=== PATIENT | female | born 1945 | race Caucasian/White ===

== ENCOUNTER → 2018-03-29 | Outpatient (CLI) | payer MEDICARE ==
[2018-03-29 12:52] LABS: Blood Urea Nitrogen 7 mg/dL (7-17)
--- NOTE | 2018-03-29 14:42 | CT ---
EXAMINATION TYPE: CT abdomen pelvis w con DATE OF EXAM: 03/29/2018 HISTORY: Abdominal pain, diverticulitis per order. CT DLP: 903mGycm Automated Exposure Control for Dose Reduction was Utilized. CONTRAST: CT scan of the abdomen and pelvis is performed with IV Contrast, patient injected with 100 ml mL of I sovue 300. COMPARISON: CT abdomen and pelvis July 30, 2017 FINDINGS: LUNG BASES: There is patchy left basilar linear scarring and/or atelectasis. LIVER/GB: Cholecystectomy clips are redemonstrated. PANCREAS: No significant abnormality is seen. SPLEEN: No significant abnormality is seen. ADRENALS: No significant abnormality is seen. KIDNEYS: No significant abnormality is seen. BOWEL: Oral contrast extends to mid transverse colon. Violation of distal bowel is slightly suboptima l secondary to lack of enteric contrast. There is no suspicious small or large bowel dilatation. Ther e are scattered diverticula throughout the colon with numerous diverticula seen in the left and sigmo id colon in the mid to distal sigmoid colon there is moderate wall thickening with mild surrounding f at stranding. There is tiny thin-walled rim-enhancing fluid collection measuring 10 x 7 mm coronal im age 66 identified. Seen on axial image 57 there is likely chronic sinus tract or possibly colon to co peter fistula between portions of sigmoid rectal colon. Findings are consistent with mild to moderate a cute diverticulitis and adjacent tiny peridiverticular abscess. UTERUS/ADNEXA: Anteverted uterus is redemonstrated. There are few scattered pelvic phleboliths. LYMPH NODES: No greater than 1cm abdominal or pelvic lymph nodes are appreciated. OSSEOUS STRUCTURES: There is redemonstration of marked rotary levoconvex scoliosis centered in the mi d lumbar spine. There is moderate spurring and disc space narrowing in the right aspect of the upper lumbar spine at peak of curvature. There is narrowing and subchondral cystic change at pubic symphysi s. There is moderate joint space loss in both hips. OTHER: There is moderate calcified plaque of aorta extending into branch vessels. IMPRESSION: CT findings are consistent with mild to moderate acute diverticulitis on background of se rl diverticulosis with tiny adjacent abscess redemonstrated. Suspect underlying sinus tract or colo colic fistula in the distal bowel. A Yellow level critical message alert has been initiated for Guillaume Estes MD via the [facility] Critical Results System on 03/29/2018 2:39 PM. This message alert has been sent to Guillaume Estes MD via the preferences provided by the clinician for the receipt of Radiology Critical Findings. Message ID [id number].
== END | disposition home or self-care (01) ==
LOC: RADCTMAIN 12:16
PROVIDERS: ATTEND Internal Medicine
DX: K57.90 Diverticulosis of intestine, part unspecified, without perforation or abscess without bleeding (principal); K63.0 Abscess of intestine
CPT/HCPCS: 82565; 84520; 74177; 36415; Q9967

== ENCOUNTER → 2018-04-16 | Outpatient (CLI) | payer MEDICARE ==
[2018-04-16 12:01] LABS: Blood Urea Nitrogen 10 mg/dL (7-17)
--- NOTE | 2018-04-16 13:37 | CT ---
EXAMINATION TYPE: CT abdomen pelvis w con DATE OF EXAM: 04/16/2018 COMPARISON: 03/29/2018 HISTORY: Follow-up abscess and diverticulitis. CT DLP: 1054 mGycm Automated exposure control for dose reduction was used. CONTRAST: CT scan of the abdomen pelvis is performed with IV Contrast, patient injected with 100 mL of Isovue M 300. FINDINGS- LUNG BASES- No significant abnormality is appreciated. LIVER/GB- Cholecystectomy clips are redemonstrated. PANCREAS- No gross abnormality is seen. SPLEEN- No gross abnormality is seen. ADRENALS- No gross abnormality is seen. KIDNEYS/BLADDER- no hydronephrosis nephrolithiasis or renal mass. BOWEL-severe diverticulosis noted. There are persistent a small 1.5 x 1.0 cm peridiverticular serial tiny abscess. Findings essentially unchanged from the prior exam. Small hiatal hernia noted.. LYMPH NODES- No greater than 1cm abdominal or pelvic lymph nodes areappreciated. OSSEOUS STRUCTURES- There is redemonstration of marked rotary levoconvex scoliosis centered in the m id lumbar spine. There is moderate spurring and disc space narrowing in the right aspect of the upper lumbar spine at peak of curvature. There is narrowing and subchondral cystic change at pubic symphys is. There is moderate joint space loss in both hips. Grade 1 anterolisthesis of L5 on S1 suspected bi lateral spondylolysis. OTHER- is moderate calcified plaque of aorta extending into branch vessels. IMPRESSION- 1. Stable 1.5 x 1.0. Diaphyseal fluid collection likely related to residual tiny abscess. No signific ant interval change. Or to severe diverticulosis with wall thickening involving the sigmoid colon. This could been the bas is of severe diverticulosis. If there is concern for mucosal lesion correlate with direct visualizati on as clinically warranted.
== END | disposition home or self-care (01) ==
LOC: RADCTMAIN 11:26
PROVIDERS: ATTEND Internal Medicine
DX: K57.92 Diverticulitis of intestine, part unspecified, without perforation or abscess without bleeding (principal)
CPT/HCPCS: 82565; 84520; 74177; 36415; Q9967

== ENCOUNTER → 2018-07-05 | Outpatient (CLI) | payer MEDICARE | END | disposition home or self-care (01) | LOC: LABPAT 08:30 | PROVIDERS: ATTEND Surgery | DX: Z01.818 Encounter for other preprocedural examination (principal); Z01.812 Encounter for preprocedural laboratory examination; K57.32 Diverticulitis of large intestine without perforation or abscess without bleeding | CPT/HCPCS: 93005 ==

== ENCOUNTER → 2018-07-08 | Outpatient (CLI) | payer MEDICARE ==
[2018-07-08 10:26] LABS: HCT 44.8 % (34.0-46.0); HGB 14.2 gm/dL (11.4-16.0); MCH 30.4 pg (25.0-35.0); MCHC 31.7 g/dL (31.0-37.0); MCV 95.7 fL (80.0-100.0); Mean Platelet Volume 6.9; Platelet Count 276 k/uL (150-450); RBC 4.68 m/uL (3.80-5.40); RDW 13.8 % (11.5-15.5); WBC 6.1 k/uL (3.8-10.6)
[2018-07-08 10:30] LABS: Potassium 4.2 mmol/L (3.5-5.1)
== END ==
LOC: LABPAT 09:29
PROVIDERS: ATTEND Surgery
DX: Z01.812 Encounter for preprocedural laboratory examination (principal); K57.32 Diverticulitis of large intestine without perforation or abscess without bleeding
CPT/HCPCS: 36415; 80051; 85027; 86850; 86900; 86901

== ENCOUNTER 2018-07-11 07:45 | Inpatient (IN) | payer MEDICARE ==
[2018-07-11 13:53] VITALS: BMI 25.7
[2018-07-17] MEDS ORDERED: ceFAZolin IN SWFI 2 GM/20 ML SYRINGE IVP ONE (05:00)
[2018-07-17] MEDS ORDERED: HEPARIN SODIUM,PORCINE 5,000 UNIT/ML 1 ML VIAL SQ ONE (05:00)
[2018-07-17] MEDS ORDERED: metroNIDAZOLE-NS PMX 500 MG in SALINE 1 100ML.BAG IVPB ONE (05:00)
[2018-07-17] MEDS ORDERED: DEXAMETHASONE SOD PHOSPHATE 10 MG/ML 1 ML VIAL IV ONE (05:54)
[2018-07-17] MEDS ORDERED: LIDOCAINE 1% 20 ML VIAL (10MG/ML) FOR IV START INTRADERMA PRN (05:54)
[2018-07-17] MEDS ORDERED: SCOPOLAMINE 1.5MG/72HR PATCH TRANSDERM ONE (05:54)
[2018-07-17] MEDS ORDERED: ONDANSETRON 4 MG/2 ML VIAL IVP ONE (05:54)
[2018-07-17] MEDS ORDERED: MIDAZOLAM 2 MG/2 ML VIAL IV PRN (05:54)
[2018-07-17] MEDS: LACTATED RINGERS 1,000 ML IV SCH (12:00)
[2018-07-17] MEDS: ALVIMOPAN 12 MG CAPSULE PO ONE ×2 (12:10→12:12)
[2018-07-17] MEDS: ACETAMINOPHEN TAB 500 MG TAB PO STA ×2 (12:10→12:12)
[2018-07-17] MEDS: MELOXICAM 7.5 MG TAB PO SCH ×2 (12:10→12:12)
[2018-07-17] MEDS ORDERED: fentaNYL (PF) 50 MCG/ML 2 ML AMP IV ONE (12:12)
--- NOTE | 2018-07-17 12:24 | P.GSHP ---
History of Present Illness H&P Date: 07/17/18 Chief Complaint: Diverticulitis This a 72-year-old female with history of diverticulitis. Patient's had chronic point the left lower quadrant pain. She presents today for low anterior section. Patient is aware the risks of surgery including possible colostomy. Past Medical History Past Medical History: Cancer, Osteoarthritis (OA), Thyroid Disorder Additional Past Medical History / Comment(s): breast cancer, RADIATION AND CHEMO 2005, lymphedema RECENT DIVERTICULITIS, BACK PAIN History of Any Multi-Drug Resistant Organisms: None Reported Past Surgical History: Breast Surgery, Section, Cholecystectomy Additional Past Surgical History / Comment(s): RT mastectomy with lymphnode dissection. Past Anesthesia/Blood Transfusion Reactions: Previous Problems w/ Anesthesia Additional Past Anesthesia/Blood Transfusion Reaction / Comment(s): HALLUCINATIONS POST OP CHOLECYSTECTOMY Smoking Status: Current every day smoker - Past Family History Father Family Medical History: Congestive Heart Failure (CHF) Additional Family Medical History / Comment(s): from congestive heart failure Mother Family Medical History: Cancer, Congestive Heart Failure (CHF) Additional Family Medical History / Comment(s): from congestive heart failure, breast cancer Brother(s) Family Medical History: Cancer Additional Family Medical History / Comment(s): x2 Son(s) Family Medical History: Cancer Additional Family Medical History / Comment(s): testicular Medications and Allergies Home Medications Medication Instructions Recorded Confirmed Type Aspirin 81 mg PO DAILY 07/30/17 07/17/18 History Levothyroxine Sodium [Synthroid] 112 mcg PO DAILY 07/30/17 07/17/18 History Ergocalciferol [Vitamin D2] 50,000 unit PO Q7D 07/11/18 07/17/18 History Allergies Allergy/AdvReac Type Severity Reaction Status Date / Time morphine Allergy Hallucinati Verified 07/17/18 11:25 ons Surgical - Exam Vital Signs Temp Pulse Resp BP Pulse Ox 99.0 F 81 18 152/80 98 07/17/18 11:24 07/17/18 11:24 07/17/18 11:24 07/17/18 11:24 07/17/18 11:24 - General well developed, no distress - Eyes PERRL - ENT normal pinna - Neck no masses - Respiratory normal expansion - Cardiovascular Rhythm: regular - Abdomen Abdomen: soft, non tender Assessment and Plan Assessment: Diverticulitis Chronic left lower quadrant pain We'll perform low anterior section.
[2018-07-17] MEDS ORDERED: PROPOFOL 10 MG/ML 20 ML VIAL IV ONE (12:49)
[2018-07-17] MEDS ORDERED: GLYCOPYRROLATE 0.2 MG/ML 2 ML VIAL ONE (12:49)
[2018-07-17] MEDS ORDERED: fentaNYL (PF) 50 MCG/ML 2 ML AMP ONE (12:49)
[2018-07-17] MEDS ORDERED: NEOSTIGMINE 1 MG/ML 10 ML VIAL ONE (12:49)
[2018-07-17] MEDS ORDERED: ROCURONIUM BROMIDE 10 MG/ML 10 ML VIAL IV ONE (12:49)
[2018-07-17] MEDS ORDERED: HYDROmorphone (PF) 1 MG/ML ONE (12:49)
[2018-07-17] MEDS ORDERED: ePHEDrine SULFATE/0.9% NACL/PF 50 MG/5 ML SYRINGE IV ONE (12:49)
[2018-07-17] MEDS ORDERED: SUCCINYLCHOLINE CHLORIDE 100 MG/5 ML SYR IV ONE (12:49)
[2018-07-17] MEDS ORDERED: LIDOCAINE 1% INJ 10MG/ML (20 ML MDV) ONE (12:49)
[2018-07-17] MEDS ORDERED: NALOXONE 0.4 MG/ML 1 ML VIAL IV PRN ×2 (13:14→14:06)
[2018-07-17] MEDS ORDERED: ROPIVACAINE 250 MG, HYDROMORPHONE (PF) 5 MG in SODIUM CHLORIDE 0.9% 200 ML EPIDURAL PRN (14:06)
[2018-07-17] MEDS ORDERED: LACTATED RINGERS 1,000 ML IV ONE ×2 (14:09→16:36)
[2018-07-17] MEDS: HYDROmorphone 0.5 MG/0.5 ML SYRINGE IVP PRN ×4 (15:03→15:22)
--- NOTE | 2018-07-17 15:05 | P.OP ---
Date of Procedure: 07/17/18 Preoperative Diagnosis: Diverticulitis Postoperative Diagnosis: Diverticulitis Small incisional hernia Procedure(s) Performed: Exploratory laparotomy Low anterior resection Takedown of splenic flexure Repair of small incisional hernia Anesthesia: EMMA Surgeon: Rustam Washington Estimated Blood Loss (ml): 30 Pathology: other (Left colon, sigmoid colon) Condition: stable Disposition: PACU Description of Procedure: The patient's placed on the operative table in the supine position. He received general anesthesia. Her abdomen was prepped and draped usual sterile fashion. She was then placed in the dorsal lithotomy position. The skin was incised through the midline. The patient a previous scar. There is a small incisional hernia encountered. The Bookwalter tract with wound. And then adhesions to the abdominal wall were lysed using sharp dissection. The patient had significant diverticular disease at the rectosigmoid junction. At this point the incision was extended cephalad. The left colon was mobilized. The proximal sigmoid colon was transected. In the rectal sigmoid mesentery was divided with the Enseal device. The dissection was taken down to the level of the peritoneal reflection. The rectum was then transected with the contour stapler. At this point there was not enough colon length a few A anastomosis. The splenic flexure was taken down. Using the Enseal device. The transverse colon was then transected using the MARINA stapler. And then the pursestring device was placed on the proximal colon. The anvil for the 25 mm EEA stapler was placed into the colon this was secured with a pursestring device. At this point the first aid officer placed the EEA stapler in the patient's anus. The spike was removed through the rectal staple line. The anvil was connected to the stapler. The stapler was then closed and then fired. Stapler was withdrawn. 2 intact tissue rings were withdrawn. Using a hydro-kennel manager dog track the bowel was clamped and then the rectum was insufflated with air via a rigid sigmoidoscope. There is no evidence of extravasation. The abdomen was irrigated there is no bleeding seen. Clean instruments were used to close the abdomen. The fascia was closed with looped #1 PDS suture. The hernia was repaired during fascial closer. The skin was closed qamar. Silver dressing was applied to the wound. Patient was sent to recovery in stable condition.
[2018-07-17 17:54] LABS: Basophils % (A) 0 %; Eosinophils # (A) 0.1 k/uL (0-0.7); Eosinophils % (A) 1 %; HCT 42.4 % (34.0-46.0); HGB 13.6 gm/dL (11.4-16.0); Lymphocytes # (A) 0.9 k/uL (1.0-4.8); Lymphocytes % (A) 9 %; MCH 30.5 pg (25.0-35.0); MCHC 32.1 g/dL (31.0-37.0); MCV 95.1 fL (80.0-100.0); Mean Platelet Volume 8.6; Monocytes # (A) 0.5 k/uL (0-1.0); Monocytes % (A) 5 %; Neutrophils # (A) 7.6 k/uL (1.3-7.7); Neutrophils % (A) 84 %; Platelet Count 166 k/uL (150-450); RBC 4.46 m/uL (3.80-5.40); RDW 13.3 % (11.5-15.5); WBC 9.1 k/uL (3.8-10.6)
[2018-07-17 18:09] LABS: Anion Gap 9 mmol/L; Blood Urea Nitrogen 9 mg/dL (7-17); Calcium 9.5 mg/dL (8.4-10.2); Carbon Dioxide 21 mmol/L (22-30); Chloride 107 mmol/L (98-107); Glucose 132 mg/dL (74-99); Potassium 4.5 mmol/L (3.5-5.1); Sodium 137 mmol/L (137-145)
[2018-07-17] MEDS: D5-0.45% NACL WITH KCL 20MEQ/L 1,000 ML IV SCH ×2 (18:15→21:05)
[2018-07-17] MEDS: FAMOTIDINE 20 MG/2 ML VIAL IV SCH (21:42)
[2018-07-17] MEDS: HEPARIN SODIUM,PORCINE 5,000 UNIT/ML 1 ML VIAL SQ SCH (21:42)
[2018-07-18] MEDS: LACTATED RINGERS 1,000 ML IV SCH (05:29)
[2018-07-18] MEDS: D5-0.45% NACL WITH KCL 20MEQ/L 1,000 ML IV SCH ×2 (05:44→16:43)
[2018-07-18] MEDS: HEPARIN SODIUM,PORCINE 5,000 UNIT/ML 1 ML VIAL SQ SCH ×3 (05:48→21:20)
--- NOTE | 2018-07-18 06:48 | P.PN ---
Progress Note - Text Progress Note Date: 07/18/18 73 yo charlenee s/p Low anterior resection. POD #1. Patient had a good night sleep. No complaints overnight. VAS=0. No motor or sensory deficit. No nausea, vomiting or itching. Epidural running at 8 cc/hr. Will keep same regimen.
--- NOTE | 2018-07-18 09:39 | P.CONS ---
History of Present Illness - Reason for Consult Consult date: 07/18/18 Medical management Requesting physician: Rustam Washington - Chief Complaint Diverticulitis - History of Present Illness This is a 72-year-old female patient who presented for an elective exploratory lap, lower anterior resection, takedown of splenic flexure and repair small incisional hernia with Dr. Washington. Patient is postop day 1. Patient has a known past medical history of diverticulitis with frequent flareups. Additional medical history includes breast cancer in 2004 with radiation and chemo, Osteoarthritis, Hypothyroidism and nicotine dependence. Patient currently has epidural in place. At this time pain is adequately controlled. Patient is on clear liquid diet. Patient denies any gas or bowel movements at this time. Midline dressing noted to have bloody drainage. Abdominal binder in place. This time patient denies chest pain or shortness of breath. Patient denies nausea vomiting or diarrhea. Patient denies any urinary burning or frequency. Nicotine patch will be ordered Review of Systems Please refer to HPI otherwise unremarkable Past Medical History Past Medical History: Cancer, Osteoarthritis (OA), Thyroid Disorder Additional Past Medical History / Comment(s): breast cancer, RADIATION AND CHEMO 2004, lymphedema RECENT DIVERTICULITIS, BACK PAIN History of Any Multi-Drug Resistant Organisms: None Reported Past Surgical History: Breast Surgery, Section, Cholecystectomy Additional Past Surgical History / Comment(s): RT mastectomy with lymphnode dissection. Past Anesthesia/Blood Transfusion Reactions: Previous Problems w/ Anesthesia Additional Past Anesthesia/Blood Transfusion Reaction / Comm: HALLUCINATIONS POST OP CHOLECYSTECTOMY Past Psychological History: No Psychological Hx Reported Additional Psychological History / Comment(s): . Smoking Status: Current every day smoker Past Alcohol Use History: Occasional Additional Past Alcohol Use History / Comment(s): started smoking at age 8 in past smoked 1 ppd now down to 1/2 PPD. Past Drug Use History: None Reported - Past Family History Father Family Medical History: Congestive Heart Failure (CHF) Additional Family Medical History / Comment(s): from congestive heart failure Mother Family Medical History: Cancer, Congestive Heart Failure (CHF) Additional Family Medical History / Comment(s): from congestive heart failure, breast cancer Brother(s) Family Medical History: Cancer Additional Family Medical History / Comment(s): x2 Son(s) Family Medical History: Cancer Additional Family Medical History / Comment(s): testicular Medications and Allergies Home Medications Medication Instructions Recorded Confirmed Type Aspirin 81 mg PO DAILY 07/30/17 07/17/18 History Levothyroxine Sodium [Synthroid] 112 mcg PO DAILY 07/30/17 07/17/18 History Ergocalciferol [Vitamin D2] 50,000 unit PO TU 07/11/18 07/17/18 History Allergies Allergy/AdvReac Type Severity Reaction Status Date / Time morphine Allergy Hallucinati Verified 07/17/18 16:10 ons Physical Exam Vitals: Vital Signs Temp Pulse Resp BP Pulse Ox 07/18/18 07:25 97.6 F 62 16 100/66 94 L 07/18/18 01:15 16 07/18/18 01:00 97.7 F 84 16 97/58 97 07/17/18 19:42 95 07/17/18 18:23 84 16 105/67 87 L 07/17/18 18:19 16 07/17/18 18:08 77 114/65 90 L 07/17/18 17:54 90 120/60 97 07/17/18 17:38 92 121/78 98 07/17/18 17:24 91 103/58 07/17/18 17:09 74 95/58 86 L 07/17/18 16:53 97.4 F L 72 17 104/62 95 07/17/18 16:30 76 16 113/67 93 L 07/17/18 16:00 78 16 145/66 100 07/17/18 15:30 89 14 148/79 99 07/17/18 15:15 88 16 188/97 99 07/17/18 15:00 96.8 F L 97 14 176/86 99 07/17/18 11:24 99.0 F 81 18 152/80 98 Intake and Output 07/17/18 07/18/18 07/18/18 22:59 06:59 14:59 Intake Total 875 413.8 Output Total 200 340 Balance 675 73.8 Intake: IV 500 Intake, IV Titration 375 413.8 Amount D5-0.45% NaCl with KCl 375 250 20Meq/l 1,000 ml @ 125 mls/hr IV .Q8H [facility] Rx#: [id number] Ropivacaine 250 mg 163.8 Hydromorphone (Pf) 5 mg In Sodium Chloride 0.9% 200 ml @ Per Protocol EPIDURAL .Q0M PRN Rx#: [id number] Output: Urine 200 340 Other: Voiding Method Indwelling Catheter Indwelling Catheter # Voids 1 Head normocephalic Neck supple Lungs diminished bilaterally Heart regular rate and rhythm S1-S2, no rub or gallop Abdomen soft bowel sounds. Dark blood shadowing to midline dressing. Abdominal binder in place Extremities no edema Neuro alert and orientated to 3 Results CBC & Chem 7: 07/17/18 17:23 07/17/18 17:23 Labs: Abnormal Lab Results - Last 24 Hours (Table) 07/17/18 07/17/18 Range/Units 17:23 17:23 Lymphocytes # 0.9 L (1.0-4.8) k/uL Carbon Dioxide 21 L (22-30) mmol/L Glucose 132 H (74-99) mg/dL Assessment and Plan Assessment: 1. Status post exploratory lap, lower anterior resection, takedown of splenic flexure and repair a small incisional hernia with Dr. Washington. Patient is currently postop day 1. Patient maintained on clear liquid diet. Epidural in place. 2. History of diverticulitis 3. Nicotine dependence. Will order nicotine patch at this time. Patient educated greater than 3 minutes on smoking cessation 4. History of osteoarthritis 5. History of hypothyroidism. Synthroid resumed 6. History of breast cancer in 2004 with radiation and chemotherapy DVT prophylaxis heparin. Incentive spirometer encouraged SCDs in place Thank you for this consultation we will continue to follow patient closely throughout stay Time with Patient: Greater than 30 (Greater than 60% of the total time spent in counseling and coordination of care. I performed an examination of the patient and discussed their management with the Nurse Practitioner. I have reviewed the Nurse Practitioner's notes and agree with the documented findings and plan of care)
[2018-07-18 09:40] LABS: Basophils % (A) 0 %; Eosinophils % (A) 0 %; HCT 36.9 % (34.0-46.0); HGB 11.9 gm/dL (11.4-16.0); Lymphocytes # (A) 1.1 k/uL (1.0-4.8); Lymphocytes % (A) 11 %; MCH 31.3 pg (25.0-35.0); MCHC 32.3 g/dL (31.0-37.0); Mean Platelet Volume 7.2; Monocytes # (A) 0.5 k/uL (0-1.0); Monocytes % (A) 6 %; Neutrophils # (A) 7.9 k/uL (1.3-7.7); Neutrophils % (A) 82 %; Platelet Count 209 k/uL (150-450); RDW 13.4 % (11.5-15.5); WBC 9.6 k/uL (3.8-10.6)
[2018-07-18 09:58] LABS: ALT 17 U/L (9-52); AST 33 U/L (14-36); Albumin 3.3 g/dL (3.5-5.0); Alkaline Phosphatase 62 U/L (38-126); Anion Gap 7 mmol/L; Blood Urea Nitrogen 6 mg/dL (7-17); Calcium 9.1 mg/dL (8.4-10.2); Carbon Dioxide 22 mmol/L (22-30); Chloride 102 mmol/L (98-107); Glucose 203 mg/dL (74-99); Sodium 131 mmol/L (137-145); Total Bilirubin 0.5 mg/dL (0.2-1.3); Total Protein 6.3 g/dL (6.3-8.2)
[2018-07-18] MEDS: FAMOTIDINE 20 MG/2 ML VIAL IV SCH ×2 (11:34→21:20)
[2018-07-18] MEDS: ALVIMOPAN 12 MG CAPSULE PO SCH ×2 (11:34→21:19)
[2018-07-18] MEDS: MELOXICAM 7.5 MG TAB PO SCH (11:34)
[2018-07-18] MEDS: LEVOTHYROXINE 112 MCG TAB PO SCH (11:41)
--- NOTE | 2018-07-18 14:54 | P.PN ---
Subjective Progress Note Date: 07/18/18 73-year-old being seen in a postop visit. Patient reports that pain medication has been effective for pain control. Not passing gas no stool has a surgical dressing on with an abdominal binder currently dry old bloody drainage noted distally postop July exploratory laparotomy, low anterior resection, takedown of splenic flexure, repair of small incisional hernia for diverticulitis Objective - Vital Signs Vital signs: Vital Signs Temp 97.6 F 07/18/18 07:25 Pulse 62 07/18/18 07:25 Resp 16 07/18/18 07:25 BP 100/66 07/18/18 07:25 Pulse Ox 94 L 07/18/18 07:25 Intake & Output 07/17/18 07/18/18 07/18/18 18:59 06:59 18:59 Intake Total 2100 788.8 Output Total 200 540 Balance 1900 248.8 Intake: IV 2100 Intake, IV Titration 788.8 Amount D5-0.45% NaCl with KCl 625 20Meq/l 1,000 ml @ 125 mls/hr IV .Q8H [facility] Rx#: [id number] Ropivacaine 250 mg 163.8 Hydromorphone (Pf) 5 mg In Sodium Chloride 0.9% 200 ml @ Per Protocol EPIDURAL .Q0M PRN Rx#: [id number] Output: Urine 100 540 Estimated Blood Loss 100 Other: Voiding Method Indwelling Catheter Indwelling Catheter # Voids 1 - Exam Physical exam 73 female sitting up in bed appearing in no acute distress states is anxious to walk in the hallway Lungs diminished at the bases otherwise adequate air movement no wheezing noted Heart S1-S2 audible regular Abdomen abdominal binder in place surgical dressing distal dry old blood noted surgical tenderness appropriate to hypoactive bowel tones indwelling Youssef catheter in place cloudy looking urine states not passing gas no stool no nausea no vomiting Extremities Venodyne's on bilateral lower extremities no edema - Labs CBC & Chem 7: 07/18/18 09:09 07/18/18 09:09 Labs: Abnormal Lab Results - Last 24 Hours (Table) 07/17/18 07/17/18 07/18/18 Range/Units 17:23 17:23 09:09 Neutrophils # 7.9 H (1.3-7.7) k/uL Lymphocytes # 0.9 L (1.0-4.8) k/uL Sodium (137-145) mmol/L Carbon Dioxide 21 L (22-30) mmol/L BUN (7-17) mg/dL Glucose 132 H (74-99) mg/dL Albumin (3.5-5.0) g/dL 07/18/18 Range/Units 09:09 Neutrophils # (1.3-7.7) k/uL Lymphocytes # (1.0-4.8) k/uL Sodium 131 L (137-145) mmol/L Carbon Dioxide (22-30) mmol/L BUN 6 L (7-17) mg/dL Glucose 203 H (74-99) mg/dL Albumin 3.3 L (3.5-5.0) g/dL Assessment and Plan Assessment: Impression Present on admission small incisional hernia Status post July 17 exploratory laparotomy, low anterior resection, takedown of splenic flexure, repair of small incisional hernia for diverticulitis Chronic left lower quadrant abdominal pain suspect due to diverticulitis History of breast cancer 2004 received chemotherapy and radiation Current every day smoker Plan Continue postop surgical care Increase activity Increase use of incentive spirometer Pain control per anesthesia epidural in place DVT and GI prophylaxis IV fluid as ordered The above impression and plan of care have been discussed and directed by signing physician. Lori Ortez nurse practitioner acting as scribe for signing physician.
[2018-07-18 18:49] LABS: Appearance,Urine Turbid (Clear); Bilirubin,Urine Negative (Negative); Blood,Urine Moderate (Negative); Color,Urine Yellow; Glucose,Urine (UA) Negative (Negative); Ketones,Urine 1+ (Negative); Leukocyte Esterase,Urine Trace (Negative); Mucus,Urine Many /hpf; Nitrite,Urine Negative (Negative); PH, Urine 5.5 (5.0-8.0); Protein,Urine 1+ (Negative); RBC,Urine 76 /hpf (0-5); Specific Gravity,Urine 1.019 (1.001-1.035); Urobilinogen,Urine <2.0 mg/dL (<2.0); WBC,Urine 8 /hpf (0-5)
[2018-07-19] MEDS: D5-0.45% NACL WITH KCL 20MEQ/L 1,000 ML IV SCH ×3 (01:54→12:17)
[2018-07-19] MEDS: ONDANSETRON 4 MG/2 ML VIAL IVP PRN (04:52)
[2018-07-19] MEDS: LACTATED RINGERS 1,000 ML IV SCH (04:53)
[2018-07-19] MEDS: HEPARIN SODIUM,PORCINE 5,000 UNIT/ML 1 ML VIAL SQ SCH ×3 (04:53→21:12)
[2018-07-19] MEDS: LEVOTHYROXINE 112 MCG TAB PO SCH (05:43)
[2018-07-19] MEDS: FAMOTIDINE 20 MG/2 ML VIAL IV SCH ×2 (07:56→21:12)
[2018-07-19] MEDS: MELOXICAM 7.5 MG TAB PO SCH (07:57)
[2018-07-19] MEDS: ALVIMOPAN 12 MG CAPSULE PO SCH ×2 (07:58→21:12)
[2018-07-19] MEDS: NICOTINE 14MG/24HR PATCH TRANSDERM SCH (07:58)
[2018-07-19 08:43] LABS: ALT 28 U/L (9-52); AST 39 U/L (14-36); Albumin 3.3 g/dL (3.5-5.0); Alkaline Phosphatase 70 U/L (38-126); Anion Gap 4 mmol/L; Blood Urea Nitrogen 2 mg/dL (7-17); Calcium 9.5 mg/dL (8.4-10.2); Carbon Dioxide 29 mmol/L (22-30); Chloride 102 mmol/L (98-107); Glucose 104 mg/dL (74-99); Potassium 4.3 mmol/L (3.5-5.1); Sodium 135 mmol/L (137-145); Total Bilirubin 0.6 mg/dL (0.2-1.3); Total Protein 6.2 g/dL (6.3-8.2)
[2018-07-19 08:46] LABS: Basophils % (A) 0 %; Eosinophils % (A) 0 %; HCT 36.3 % (34.0-46.0); HGB 11.5 gm/dL (11.4-16.0); Lymphocytes # (A) 1.5 k/uL (1.0-4.8); Lymphocytes % (A) 14 %; MCH 31.2 pg (25.0-35.0); MCHC 31.8 g/dL (31.0-37.0); MCV 98.2 fL (80.0-100.0); Mean Platelet Volume 7.5; Monocytes # (A) 0.5 k/uL (0-1.0); Monocytes % (A) 5 %; Neutrophils # (A) 8.9 k/uL (1.3-7.7); Neutrophils % (A) 80 %; Platelet Count 224 k/uL (150-450); RBC 3.69 m/uL (3.80-5.40); RDW 13.4 % (11.5-15.5); WBC 11.1 k/uL (3.8-10.6)
--- NOTE | 2018-07-19 09:01 | XR ---
EXAMINATION TYPE: XR chest 2V DATE OF EXAM: 07/19/2018 COMPARISON: 10/03/2014 TECHNIQUE: PA and lateral views submitted. HISTORY: Cough FINDINGS: Postsurgical changes overlying the right axilla and chest. Severe scoliotic curvature with left lower lobe infiltrate and small effusion. Atherosclerotic change aorta. Heart size stable. Degenerative ch marysol of the spine. Clips are seen in the abdomen. There is evidence of a small amount of free intrape ritoneal air. Report immediately called to patient's nurse. Correlate for small hiatal hernia. Apical pleural-based density noted appears stable. IMPRESSION: 1. Left lower lobe infiltrate 2. There is a small amount of free intraperitoneal air suspected. Report immediately called to the paul iyer's nurse. 3. There is an apical pleural-based density which is stable dating back to 2010 and therefore likely benign.
[2018-07-19] MEDS: METOCLOPRAMIDE 5 MG/ML 2 ML VIAL IVP PRN (10:16)
[2018-07-19] MEDS ORDERED: IPRATROPIUM-ALBUTEROL 3 ML NEB INHALATION PRN (11:49)
[2018-07-19] MEDS: IPRATROPIUM-ALBUTEROL 3 ML NEB INHALATION SCH ×3 (11:56→20:18)
[2018-07-19] MEDS ORDERED: IPRATROPIUM-ALBUTEROL 3 ML NEB INHALATION SCH (12:00)
--- NOTE | 2018-07-19 12:18 | P.PN ---
Subjective Progress Note Date: 07/19/18 73-year-old female seen sitting up in a chair. Patient stated that she slept in the chair could not sleep in the bed bed is uncomfortable. Audibly congested upper airways. Poor technique in using the IS can only to 500. White count this morning 11.1 low-grade temp 99.3 chest x-ray obtained this morning show left lower lobe infiltrate small amount of free air suspected. postop July exploratory laparotomy, low anterior resection, takedown of splenic flexure, repair of small incisional hernia for diverticulitis Objective - Vital Signs Vital signs: Vital Signs Temp 99.3 F 07/19/18 07:00 Pulse 100 07/19/18 12:05 Resp 18 07/19/18 07:00 BP 124/71 07/19/18 07:00 Pulse Ox 98 07/19/18 07:00 Intake & Output 07/18/18 07/19/18 07/19/18 18:59 06:59 18:59 Intake Total 2000 0 Output Total 400 905 Balance -400 1095 0 Weight 59.874 kg Intake: Intake, IV Titration 2000 Amount D5-0.45% NaCl with KCl 2000 20Meq/l 1,000 ml @ 125 mls/hr IV .Q8H [facility] Rx#: [id number] Oral 0 Output: Urine 400 900 Uretheral (Youssef) 500 Emesis 5 Other: Voiding Method Indwelling Catheter # Voids 4 - Exam Physical exam 73-year-old female sitting up in a chair. Appears in no acute distress Lungs coarse rhonchi in the upper airways decreased at the bases harsh nonproductive cough noted on room air sats are 94% no audible wheezing Heart S1-S2 audible regular denying chest pain Abdomen abdominal binder in place few hypoactive bowel tones noted surgical tenderness appropriate not distended surgical dressing dried old blood noted distal device dry states urinating no difficulty no stool passing gas Extremities no edema noted - Labs CBC & Chem 7: 07/19/18 08:00 07/19/18 08:00 Labs: Abnormal Lab Results - Last 24 Hours (Table) 07/18/18 07/19/18 07/19/18 Range/Units 14:15 08:00 08:00 WBC 11.1 H (3.8-10.6) k/uL RBC 3.69 L (3.80-5.40) m/uL Neutrophils # 8.9 H (1.3-7.7) k/uL Sodium 135 L (137-145) mmol/L BUN 2 L (7-17) mg/dL Creatinine 0.51 L (0.52-1.04) mg/dL Glucose 104 H (74-99) mg/dL AST 39 H (14-36) U/L Total Protein 6.2 L (6.3-8.2) g/dL Albumin 3.3 L (3.5-5.0) g/dL Urine Appearance Turbid H (Clear) Urine Protein 1+ H (Negative) Urine Ketones 1+ H (Negative) Urine Blood Moderate H (Negative) Ur Leukocyte Esterase Trace H (Negative) Urine RBC 76 H (0-5) /hpf Urine WBC 8 H (0-5) /hpf Urine Mucus Many H (None) /hpf Microbiology - Last 24 Hours (Table) 07/18/18 17:37 Urine Culture - Preliminary Urine,Catheterized Assessment and Plan Assessment: Impression Present on admission small incisional hernia Status post July 17 exploratory laparotomy, low anterior resection, takedown of splenic flexure, repair of small incisional hernia for diverticulitis Chronic left lower quadrant abdominal pain suspect due to diverticulitis History of breast cancer 2004 received chemotherapy and radiation Current every day smoker Chest x-ray obtained July 19 report indicates left lower lobe infiltrate Plan Continue postop surgical care Increase use of incentive spirometer IV antibiotics per the attending DVT and GI prophylaxis IV fluid as ordered Encouraged patient to walk at least 4 times in the hallway Respiratory treatments as ordered The above impression and plan of care have been discussed and directed by signing physician. Lori Ortez nurse practitioner acting as scribe for signing physician.
--- NOTE | 2018-07-19 12:24 | P.PN ---
Subjective Progress Note Date: 07/19/18 This is a 72-year-old female patient who presented for an elective exploratory lap, lower anterior resection, takedown of splenic flexure and repair small incisional hernia with Dr. Washington. Patient is postop day 1. Patient has a known past medical history of diverticulitis with frequent flareups. Additional medical history includes breast cancer in 2004 with radiation and chemo, Osteoarthritis, Hypothyroidism and nicotine dependence. Patient currently has epidural in place. At this time pain is adequately controlled. Patient is on clear liquid diet. Patient denies any gas or bowel movements at this time. Midline dressing noted to have bloody drainage. Abdominal binder in place. This time patient denies chest pain or shortness of breath. Patient denies nausea vomiting or diarrhea. Patient denies any urinary burning or frequency. Nicotine patch will be ordered On 07/19/2018 patient currently postop day 2. patient is currently sitting up in chair eating clear liquid diet. Per patient she is passing gas. Patient currently states her shortness of breath is improved with breathing treatments. Vision started on Zithromax and Rocephin for antibiotics for possible pneumonia and UTI. Encouraged patient to continue walking and incentive spirometer use. Objective - Vital Signs Vital signs: Vital Signs Temp 99.3 F 07/19/18 07:00 Pulse 100 07/19/18 12:05 Resp 18 07/19/18 07:00 BP 124/71 07/19/18 07:00 Pulse Ox 98 07/19/18 07:00 Intake & Output 07/18/18 07/19/18 07/19/18 18:59 06:59 18:59 Intake Total 2000 0 Output Total 400 905 Balance -400 1095 0 Weight 59.874 kg Intake: Intake, IV Titration 2000 Amount D5-0.45% NaCl with KCl 2000 20Meq/l 1,000 ml @ 125 mls/hr IV .Q8H [facility] Rx#: [id number] Oral 0 Output: Urine 400 900 Uretheral (Youssef) 500 Emesis 5 Other: Voiding Method Indwelling Catheter # Voids 4 - Exam Head normocephalic Neck supple Lungs diminished bilaterally. Left lower lobe crackles to auscultation Heart regular rate and rhythm S1-S2, no rub or gallop Abdomen thorax bowel sounds. Dark blood shadowing to midline dressing. Abdominal binder in place Extremities no edema Neuro alert and orientated to 3 - Labs CBC & Chem 7: 07/19/18 08:00 07/19/18 08:00 Labs: Abnormal Lab Results - Last 24 Hours (Table) 07/18/18 07/19/18 07/19/18 Range/Units 14:15 08:00 08:00 WBC 11.1 H (3.8-10.6) k/uL RBC 3.69 L (3.80-5.40) m/uL Neutrophils # 8.9 H (1.3-7.7) k/uL Sodium 135 L (137-145) mmol/L BUN 2 L (7-17) mg/dL Creatinine 0.51 L (0.52-1.04) mg/dL Glucose 104 H (74-99) mg/dL AST 39 H (14-36) U/L Total Protein 6.2 L (6.3-8.2) g/dL Albumin 3.3 L (3.5-5.0) g/dL Urine Appearance Turbid H (Clear) Urine Protein 1+ H (Negative) Urine Ketones 1+ H (Negative) Urine Blood Moderate H (Negative) Ur Leukocyte Esterase Trace H (Negative) Urine RBC 76 H (0-5) /hpf Urine WBC 8 H (0-5) /hpf Urine Mucus Many H (None) /hpf Microbiology - Last 24 Hours (Table) 07/18/18 17:37 Urine Culture - Preliminary Urine,Catheterized Assessment and Plan Assessment: 1. Status post exploratory lap, lower anterior resection, takedown of splenic flexure and repair a small incisional hernia with Dr. Washington. Patient is currently postop day 2. Patient maintained on clear liquid diet. Epidural in place. 2. History of diverticulitis 3. Nicotine dependence. Will order nicotine patch at this time. Patient educated greater than 3 minutes on smoking cessation 4. History of osteoarthritis 5. History of hypothyroidism. Synthroid resumed 6. History of breast cancer in 2004 with radiation and chemotherapy 7. Urinary tract infection. Patient started on Rocephin. Urine culture ordered 8. Possible pneumonia. Chest x-ray showing left lower infiltrate and small amount of free intraperitoneal air suspected. Per nursing staff Dr. Washington made aware of chest x-ray findings no new orders. Patient started on Zithromax and Rocephin IV antibiotics. Continue DuoNeb breathing treatment sputum culture ordered DVT prophylaxis heparin. Incentive spirometer encouraged SCDs in place Thank you for this consultation we will continue to follow patient closely throughout stay I performed an examination of the patient and discussed their management with the Nurse Practitioner. I have reviewed the Nurse Practitioner's notes and agree with the documented findings and plan of care
[2018-07-19] MEDS: AZITHROMYCIN 500 MG in SODIUM CHLORIDE 0.9% 250 ML IVPB SCH (13:40)
--- NOTE | 2018-07-19 16:08 | CDI ---
Last Revision, July 2017 Documentation Clarification Form Date: 07/19/2018 3:49:46 PM From: Casi Pathak RN, CCDS Admit Date: 07/17/2018 10:26:00 AM Patient Name: Mona Friend Visit Number: [id number] Discharge Date: ATTENTION: The Clinical Documentation Specialists (CDI) and [facility] Coding Staff appreciate your assistance in clarifying documentation. Please respond to the clarification below the line at the bottom and electronically sign. The CDI & [facility] Coding staff will review the response and follow-up if needed. Please note: Queries are made part of the Legal Health Record. If you have any questions, please contact the author of this message via ITS. Dr. Guillaume Estes UTI was documented in the progress notes on 07/19/18 . History/Risk Factors: Breast Cancer, Diverticulitis, Current every day smoker Clinical Indicators: Peir-op/lopez-procedure urinary catheter was inserted . Urine appearance was noted as clear, with sediments and mucous threads. She denies any urinary burning or frequency Vital Signs: 109/66 77 22 98.0 : Urinalysis: 07/18/18 UA: appearance turbid, 1+ protein, Moderate blood, Nitrite -negative, Ur Leukocyte Esterase -trace WBC 8 Urine Culture: Pending Treatment Antibiotics Azithromycin IV, Rocephin IV Monitor Labs Please document the condition that these clinical indicators signify, whether Present on Admission, and cause if known: UTI If due to catheter, Not catheter related (was it poa) Specify organism, if known Identify location of infection (if known) Bladder, Kidney, Urethra Contaminated specimen Other, please specify Unable to determine Present on Admission: Yes No Urinary tract infection unable to determine present not present on admission ___ MTDD
[2018-07-20] MEDS: D5-0.45% NACL WITH KCL 20MEQ/L 1,000 ML IV SCH ×2 (00:14→20:06)
[2018-07-20] MEDS: HEPARIN SODIUM,PORCINE 5,000 UNIT/ML 1 ML VIAL SQ SCH ×3 (05:35→19:55)
[2018-07-20] MEDS: LACTATED RINGERS 1,000 ML IV SCH (05:36)
[2018-07-20] MEDS: LEVOTHYROXINE 112 MCG TAB PO SCH (05:38)
[2018-07-20] MEDS: IPRATROPIUM-ALBUTEROL 3 ML NEB INHALATION SCH ×4 (07:57→18:55)
[2018-07-20 08:03] LABS: Basophils % (A) 0 %; Eosinophils # (A) 0.1 k/uL (0-0.7); Eosinophils % (A) 1 %; HCT 34.9 % (34.0-46.0); HGB 11.3 gm/dL (11.4-16.0); Lymphocytes # (A) 1.6 k/uL (1.0-4.8); Lymphocytes % (A) 15 %; MCH 31.8 pg (25.0-35.0); MCHC 32.5 g/dL (31.0-37.0); MCV 97.8 fL (80.0-100.0); Mean Platelet Volume 7.3; Monocytes # (A) 0.7 k/uL (0-1.0); Monocytes % (A) 6 %; Neutrophils # (A) 8.6 k/uL (1.3-7.7); Neutrophils % (A) 77 %; Platelet Count 236 k/uL (150-450); RBC 3.57 m/uL (3.80-5.40); RDW 13.2 % (11.5-15.5); WBC 11.2 k/uL (3.8-10.6)
[2018-07-20 08:20] LABS: ALT 28 U/L (9-52); AST 28 U/L (14-36); Albumin 3.1 g/dL (3.5-5.0); Alkaline Phosphatase 74 U/L (38-126); Anion Gap 6 mmol/L; Blood Urea Nitrogen 3 mg/dL (7-17); Calcium 9.6 mg/dL (8.4-10.2); Carbon Dioxide 27 mmol/L (22-30); Chloride 106 mmol/L (98-107); Glucose 98 mg/dL (74-99); Potassium 4.2 mmol/L (3.5-5.1); Sodium 139 mmol/L (137-145); Total Bilirubin 0.8 mg/dL (0.2-1.3)
--- NOTE | 2018-07-20 08:25 | CONS ---
CONSULTATION DATE OF SERVICE: 07/19/2018. REASON FOR CONSULTATION: Pneumonia. HISTORY OF PRESENT ILLNESS: The patient is a 73-year-old female with past medical history significant for recurrent diverticulitis. The patient has been electively admitted to [facility] on 07/17/2018 and is status post exploratory laparotomy with low anterior resection and takedown of the splenic flexure, repair of small incisional hernia. The patient postoperatively has been admitted hospital for postop care. This patient who did not have any fever. The highest temperature today has been 99.3. However, the patient has been complaining of having a cough and bringing up some sputum and shortness of breath requiring supplemental oxygen. The patient also had a chest x-ray obtained which did shows left lower lobe pneumonia. The patient was started on Rocephin and Zithromax. Infectious Disease was consulted for further recommendation regarding antibiotic therapy. Patient has been started on a diet; however, oral intake remains to be poor. The patient did not have any sore throat or difficulty swallowing or any choking with food. No nausea, no vomiting. Abdominal pain is currently controlled with pain medication. Denies having a bowel movement. Denies having any chest pain though. REVIEW OF SYSTEMS: CONSTITUTIONAL: Positive for weakness and low-grade fever. EYES: No complaint. ENT: No complaint. RESPIRATORY: As per HPI. CARDIOVASCULAR: No complaint. GENITOURINARY: No complaint. GASTROINTESTINAL: As per HPI. MUSCULOSKELETAL: No complaint. INTEGUMENTARY: No complaint. PSYCHOLOGICAL: No complaint. ENDOCRINE: No complaint. NEUROLOGIC: No complaint. PAST MEDICAL HISTORY: Breast cancer, recurrent diverticulitis, lymphedema, osteoarthritis, hypothyroidism. PAST SURGICAL HISTORY: Breast surgery, , cholecystectomy. SOCIAL HISTORY: Patient current everyday smoker, smokes more than a pack a day. No drinking or drug use. FAMILY HISTORY: Father history of congestive heart failure. Mother history of breast cancer and congestive heart failure. ALLERGIES: MORPHINE. MEDICATIONS: The patient is currently on DuoNeb, azithromycin, Cepacol lozenges, Rocephin 1 g daily, Pepcid, Mucinex, heparin, Dilaudid, lactated Ringer, Synthroid, Mobic, Reglan, Narcan, nicotine patch and Zofran. PHYSICAL EXAMINATION: Blood pressure is 116/64, pulse of temperature 98.8, T-max 99. She is 98% on 2 L nasal cannula. General description is an elderly female lying in bed in no distress. No tachypnea or accessory muscle of respiration use. HEENT: No pallor or scleral icterus. Oral mucosa is dry. No pharyngeal erythema or thrush. NECK: Trachea central. No thyromegaly. LUNGS: Unlabored breathing with decreased breath sounds at the bases. No wheeze or crackle. HEART: S1, S2. Regular rate and rhythm. ABDOMEN: Soft, no tenderness. No guarding or rigidity. No organomegaly. EXTREMITIES: No edema of the feet. SKIN EXAMINATION: No rash or mass palpable. NEUROLOGICAL: Patient is awake, alert, oriented. Mood and affect normal. LABS: Hemoglobin 11.5, white count 11.1 with a BUN of 2, creatinine 0.51. Electrolytes have been normal. Urine did shows moderate blood, leukocyte esterase was trace, 8 WBC. Cultures have been obtained, currently pending. DIAGNOSTIC IMPRESSION AND PLAN: Patient with low-grade fever, slightly elevated white count in this patient who is status post laparotomy with low anterior resection and splenic flexure takedown for recurrent diverticulitis in a patient who did have respiratory symptoms with left lower lobe infiltrate, possible pneumonia to be the likely source of her symptoms with question of possible community-acquired versus gram-negative pneumonia. PLAN: 1. The patient will be treated with Rocephin 1 g daily in addition to oral Zithromax. 2. We will watch her clinical course as well as sputum culture closely and adjust antibiotic further if needed. Thank you for this consultation. Will follow this patient along with you. MMODL / IJN: [id number] / AILIN
[2018-07-20] MEDS: NICOTINE 14MG/24HR PATCH TRANSDERM SCH (10:09)
[2018-07-20] MEDS: ALVIMOPAN 12 MG CAPSULE PO SCH ×2 (10:09→19:54)
[2018-07-20] MEDS: MELOXICAM 7.5 MG TAB PO SCH (10:10)
--- NOTE | 2018-07-20 10:30 | P.PN ---
Progress Note - Text Progress Note Date: 07/20/18 The patient is resting comfortably in bed. She denies any significant abdominal pain. On exam her vital signs are stable. Her abdomen soft. Status post low anterior resection for diverticulitis. Patient stated well. We will advance her diet once her bowel function has returned.
--- NOTE | 2018-07-20 12:30 | P.PN ---
Subjective Progress Note Date: 07/20/18 This is a 72-year-old female patient who presented for an elective exploratory lap, lower anterior resection, takedown of splenic flexure and repair small incisional hernia with Dr. Washington. Patient is postop day 1. Patient has a known past medical history of diverticulitis with frequent flareups. Additional medical history includes breast cancer in 2004 with radiation and chemo, Osteoarthritis, Hypothyroidism and nicotine dependence. Patient currently has epidural in place. At this time pain is adequately controlled. Patient is on clear liquid diet. Patient denies any gas or bowel movements at this time. Midline dressing noted to have bloody drainage. Abdominal binder in place. This time patient denies chest pain or shortness of breath. Patient denies nausea vomiting or diarrhea. Patient denies any urinary burning or frequency. Nicotine patch will be ordered On 07/19/2018 patient currently postop day 2. patient is currently sitting up in chair eating clear liquid diet. Per patient she is passing gas. Patient currently states her shortness of breath is improved with breathing treatments. Vision started on Zithromax and Rocephin for antibiotics for possible pneumonia and UTI. Encouraged patient to continue walking and incentive spirometer use. On 07/20/2018 patient is currently postop day 2. Patient is currently sitting up in bed. Patient remains on clear liquid diet. Dr. Gomez has been consulted for pneumonia and urinary tract infection. patient remains on IV Rocephin and oral Zithromax. Patient does state some improvement with shortness of breath. This time patient denies chest pain or shortness breath patient denies nausea vomiting or diarrhea. Patient denies any urinary burning or frequency. Objective - Vital Signs Vital signs: Vital Signs Temp 98 F 07/20/18 07:00 Pulse 89 07/20/18 11:46 Resp 16 07/20/18 07:00 BP 131/77 07/20/18 07:00 Pulse Ox 96 07/20/18 07:00 Intake & Output 07/19/18 07/20/18 07/20/18 18:59 06:59 18:59 Intake Total 300 990 Balance 300 990 Weight 59.874 kg Intake: Intake, IV Titration 300 990 Amount Azithromycin 500 mg In 250 Sodium Chloride 0.9% 250 ml @ 250 mls/hr IVPB DAILY@1200 [facility] Rx#: [id number] D5-0.45% NaCl with KCl 990 20Meq/l 1,000 ml @ 75 mls /hr IV .[id number] [facility] Rx#: [id number] cefTRIAXone 1,000 mg In 50 Sodium Chloride 0.9% 50 ml @ 100 mls/hr IVPB Q24HR [facility] Rx#:[id number] Oral 0 Other: Voiding Method Toilet # Voids 3 2 - Exam Head normocephalic Neck supple Lungs diminished bilaterally. Left lower lobe crackles to auscultation Heart regular rate and rhythm S1-S2, no rub or gallop Abdomen thorax bowel sounds. Dark blood shadowing to midline dressing. Abdominal binder in place Extremities no edema Neuro alert and orientated to 3 - Labs CBC & Chem 7: 07/20/18 07:38 07/20/18 07:38 Labs: Abnormal Lab Results - Last 24 Hours (Table) 07/20/18 07/20/18 Range/Units 07:38 07:38 WBC 11.2 H (3.8-10.6) k/uL RBC 3.57 L (3.80-5.40) m/uL Hgb 11.3 L (11.4-16.0) gm/dL Neutrophils # 8.6 H (1.3-7.7) k/uL BUN 3 L (7-17) mg/dL Creatinine 0.45 L (0.52-1.04) mg/dL Total Protein 6.0 L (6.3-8.2) g/dL Albumin 3.1 L (3.5-5.0) g/dL Microbiology - Last 24 Hours (Table) 07/19/18 15:46 Gram Stain - Preliminary Sputum Sputum Culture - Preliminary 07/18/18 17:37 Urine Culture - Final Urine,Catheterized Assessment and Plan Assessment: 1. Status post exploratory lap, lower anterior resection, takedown of splenic flexure and repair a small incisional hernia with Dr. Washington. Patient is currently postop day 3. Patient maintained on clear liquid diet. Epidural in place. 2. History of diverticulitis 3. Nicotine dependence. Will order nicotine patch at this time. Patient educated greater than 3 minutes on smoking cessation 4. History of osteoarthritis 5. History of hypothyroidism. Synthroid resumed 6. History of breast cancer in 2004 with radiation and chemotherapy 7. Urinary tract infection. Patient started on Rocephin. Urine culture ordered 8.pneumonia. Chest x-ray showing left lower infiltrate and small amount of free intraperitoneal air suspected. Per nursing staff Dr. Washington made aware of chest x-ray findings no new orders. Patient started on Zithromax and Rocephin IV antibiotics. Continue DuoNeb breathing treatment sputum culture ordered. Infectious disease following for pneumonia and UTI. Patient remains on IV Rocephin and oral azithromycin. Dr. Alanis also consulted for pulmonary services DVT prophylaxis heparin. Incentive spirometer encouraged SCDs in place Thank you for this consultation we will continue to follow patient closely throughout stay I performed an examination of the patient and discussed their management with the Nurse Practitioner. I have reviewed the Nurse Practitioner's notes and agree with the documented findings and plan of care
[2018-07-20] MEDS: FAMOTIDINE 20 MG/2 ML VIAL IV SCH ×2 (13:09→19:57)
[2018-07-20] MEDS: AZITHROMYCIN 500 MG in SODIUM CHLORIDE 0.9% 250 ML IVPB SCH (13:10)
--- NOTE | 2018-07-20 14:12 | P.CNPUL ---
History of Present Illness Consult date: 07/20/18 Reason for consult: COPD History of present illness: This is a 70-year-old female patient who presented for an elective extra 10 laparotomy and low anterior resection, takedown of the splenic flexure and repair of a small incisional hernia in the surgery was done. The patient is currently postop day #3. Note that the patient was having frequent bouts of diverticulitis and for that reason further decided to proceed with the surgery. She is known to have previous history of breast cancer and she has undergone mastectomy followed by radiation therapy and she has chronic scarring in the right apical area that was seen on previous CAT scans of the chest. She has also received hemotherapy. She has been in remission in regards to her breast cancer. She is an ex-smoker. She has hypothyroidism as another comorbid conditions. The patient also has severe kyphoscoliosis of the chest with DEXA scoliosis of the thoracic spine. At this point in time, the patient on a combination of antibiotics including Zithromax and Rocephin. UTI was suspected based on that the antibiotics were broadened. In terms of breathing, the patient has a congested cough. No significant sputum production. Chest x-ray shows severe kyphoscoliosis of the chest and there is no acute other modalities noted. Diaphragms are clear. No significant respiratory distress. She is having a congested cough. The patient does opt utilizes home oxygen. The patient has been maintained on no inhalers on outpatient basis. In terms of her surgical progress, no nausea and no vomiting and the surgical wound site is dry clean and intact at this point in time. Abdominal binder is in place. Review of Systems Constitutional: Denies chills, Denies fever Eyes: denies as per HPI, denies blurred vision, denies bulging eye, denies decreased vision, denies diplopia, denies discharge, denies dry eye, denies irritation, denies itching, denies pain, denies photophobia, denies loss of peripheral vision, denies loss of vision, denies tunnel vision/blind spots Ears: deny: decreased hearing, ear discharge, earache, tinnitus Ears, nose, mouth and throat: Denies headache, Denies sore throat Cardiovascular: Denies chest pain, Denies shortness of breath Respiratory: Reports cough, Reports excessive sputum Gastrointestinal: Reports as per HPI Genitourinary: Denies dysuria, Denies hematuria Menstruation: Reports as per HPI Musculoskeletal: Reports as per HPI Musculoskeletal: absent: ankle pain, ankle stiffness, ankle swelling, as per HPI , elbow pain, elbow stiffness, elbow swelling, foot pain, foot stiffness, foot swelling, hand pain, hand stiffness, hand swelling, hip pain, hip stiffness, hip swelling, knee pain, knee stiffness, knee swelling, shoulder pain, shoulder stiffness, shoulder swelling, wrist pain, wrist stiffness, wrist swelling Integumentary: Reports as per HPI Neurological: Reports as per HPI Psychiatric: Reports as per HPI Hematologic/Lymphatic: Reports as per HPI Allergic/Immunologic: Reports as per HPI Past Medical History Past Medical History: Cancer, Osteoarthritis (OA), Thyroid Disorder Additional Past Medical History / Comment(s): Severe scoliosis of the thoracic spine, paresis or breast cancer with right mastectomy followed by radiation and chemotherapy 2004, chronic lymphedema of the right upper extremity, recurrent diverticulitis, chronic back pain, hypothyroidism, osteoarthritis, COPD History of Any Multi-Drug Resistant Organisms: None Reported Past Surgical History: Breast Surgery, Section, Cholecystectomy Additional Past Surgical History / Comment(s): RT mastectomy with lymphnode dissection. Past Anesthesia/Blood Transfusion Reactions: Previous Problems w/ Anesthesia Additional Past Anesthesia/Blood Transfusion Reaction / Comment(s): HALLUCINATIONS POST OP CHOLECYSTECTOMY Past Psychological History: No Psychological Hx Reported Additional Psychological History / Comment(s): . Smoking Status: Current every day smoker Past Alcohol Use History: Occasional Additional Past Alcohol Use History / Comment(s): started smoking at age 8 in past smoked 1 ppd now down to 1/2 PPD. Past Drug Use History: None Reported - Past Family History Father Family Medical History: Congestive Heart Failure (CHF) Additional Family Medical History / Comment(s): from congestive heart failure Mother Family Medical History: Cancer, Congestive Heart Failure (CHF) Additional Family Medical History / Comment(s): from congestive heart failure, breast cancer Brother(s) Family Medical History: Cancer Additional Family Medical History / Comment(s): x2 Son(s) Family Medical History: Cancer Additional Family Medical History / Comment(s): testicular Medications and Allergies Home Medications Medication Instructions Recorded Confirmed Type Aspirin 81 mg PO DAILY 07/30/17 07/17/18 History Levothyroxine Sodium [Synthroid] 112 mcg PO DAILY 07/30/17 07/17/18 History Ergocalciferol [Vitamin D2] 50,000 unit PO TU 07/11/18 07/17/18 History Allergies Allergy/AdvReac Type Severity Reaction Status Date / Time morphine Allergy Hallucinati Verified 07/17/18 16:10 ons Physical Exam Vitals: Vital Signs Temp Pulse Pulse Resp BP Pulse Ox 07/20/18 11:46 89 07/20/18 11:36 88 07/20/18 08:07 92 07/20/18 07:57 90 07/20/18 07:00 98 F 89 16 131/77 96 07/20/18 01:00 98.5 F 95 16 128/77 94 L 07/20/18 00:14 18 07/19/18 20:28 88 07/19/18 20:17 87 22 95 07/19/18 19:30 98.8 F 87 18 116/64 98 07/19/18 15:42 88 07/19/18 15:28 88 07/19/18 14:29 97.9 F 60 16 120/74 93 L Intake and Output 07/19/18 07/20/18 07/20/18 22:59 06:59 14:59 Intake Total 600 390 Balance 600 390 Intake: Intake, IV Titration 600 390 Amount D5-0.45% NaCl with KCl 600 390 20Meq/l 1,000 ml @ 75 mls /hr IV .[id number] Rx#: [id number] Other: Voiding Method Toilet # Voids 1 2 Appearance the patient is calm comfortable likely distress. She is not using excessive muscle breathing. Head exam was generally normal. There was no scleral icterus or corneal arcus. Mucous membranes were moist. Neck was supple and without jugular venous distension, thyromegaly, or carotid bruits. Carotids were easily palpable bilaterally. There was no adenopathy. Lungs sounds are showing equal and symmetrical breath sounds bilaterally. Scattered rhonchi. There is severe lows of the thoracic spine and this deformities clearly appreciated on physical examination. Cardiac exam revealed the PMI to be normally situated and sized. The rhythm was regular and no extrasystoles were noted during several minutes of auscultation. The first and second heart sounds were normal and physiologic splitting of the second heart sound was noted. There were no murmurs, rubs, clicks, or gallops. Abdominal exam revealed normal bowel sounds. The abdomen was soft, non-tender, and without masses, organomegaly, or appreciable enlargement of the abdominal aorta. The abdominal wound is dry clean and intact a bowel sounds are present. There is some dark blood shadowing the midline dressing. The patient is wearing an abdominal binder. Examination of the extremities revealed easily palpable radial, femoral and pedal pulses. There was no cyanosis, clubbing or edema. Examination of the skin revealed no evidence of significant rashes, suspicious appearing nevi or other concerning lesions. Neurologically awake and alert and there is no focal neurological deficit. Results - Laboratory Findings CBC and BMP: 07/20/18 07:38 07/20/18 07:38 Abnormal lab findings: Abnormal Labs 07/17/18 07/17/18 07/18/18 17:23 17:23 09:09 WBC RBC Hgb Neutrophils # 7.9 H Lymphocytes # 0.9 L Sodium Carbon Dioxide 21 L BUN Creatinine Glucose 132 H AST Total Protein Albumin Urine Appearance Urine Protein Urine Ketones Urine Blood Ur Leukocyte Esterase Urine RBC Urine WBC Urine Mucus 07/18/18 07/18/18 07/19/18 09:09 14:15 08:00 WBC 11.1 H RBC 3.69 L Hgb Neutrophils # 8.9 H Lymphocytes # Sodium 131 L Carbon Dioxide BUN 6 L Creatinine Glucose 203 H AST Total Protein Albumin 3.3 L Urine Appearance Turbid H Urine Protein 1+ H Urine Ketones 1+ H Urine Blood Moderate H Ur Leukocyte Esterase Trace H Urine RBC 76 H Urine WBC 8 H Urine Mucus Many H 07/19/18 07/20/18 07/20/18 08:00 07:38 07:38 WBC 11.2 H RBC 3.57 L Hgb 11.3 L Neutrophils # 8.6 H Lymphocytes # Sodium 135 L Carbon Dioxide BUN 2 L 3 L Creatinine 0.51 L 0.45 L Glucose 104 H AST 39 H Total Protein 6.2 L 6.0 L Albumin 3.3 L 3.1 L Urine Appearance Urine Protein Urine Ketones Urine Blood Ur Leukocyte Esterase Urine RBC Urine WBC Urine Mucus - Diagnostic Findings Chest x-ray: image reviewed Assessment and Plan Plan: Assessment 1 low anterior resection in addition to resection of the splenic flexure of the colon and repair of a small incisional hernia and the patient is postop day #3. The surgery was originally to treat this patient's recurrent diverticulitis complications 2 severe scoliosis of the thoracic spine 3 COPD 4 chest congestion without indication of an underlying pneumonia. Could be related to poor pulmonary toileting. Pneumonia cannot be completely excluded. 5 hypothyroidism 6 history of breast cancer with previous mastectomy followed by radiation therapy and chemotherapy 2004 7 chronic right apical scarring probably related to previous radiation therapy. This is a finding that has been present on previous CAT scan of the chest and there is no indication of any malignancy involving the lungs 8 UTI currently on Rocephin Plan Agree on the current management. Add Mucinex DM regarding the patient's cough and congestion. Continue using the incentive spirometer. DuoNeb nebulized with [id number]. Same antibiotic coverage. Reviewed the chest x-ray. Reviewed the previous CAT scan from 2014. No concerns regarding other complications of the lungs. Monitor with surgery the abdominal wound and the progression and outcome of the surgery. We'll continue to follow. She was encouraged to ambulate, decreased, and perform adequate pulmonary toileting. We 'll continue to follow.
[2018-07-20] MEDS: guaiFENesin 600 MG TABLET.ER PO PRN (15:53)
[2018-07-20] MEDS: BENZOCAINE/MENTHOL LOZENG 1 EACH LOZENGE MUCOUS MEM PRN (19:45)
[2018-07-20] MEDS: traMADol 50 MG TAB PO PRN (20:07)
--- NOTE | 2018-07-20 23:46 | PN ---
PROGRESS NOTE DATE OF SERVICE: 07/20/2018. REASON FOR FOLLOWUP VISIT: 1. Pneumonia. 2. UTI. INTERVAL HISTORY: The patient is afebrile. Her breathing has improved. The patient's cough has decreased in intensity, mostly dry in nature. No chest pain. No abdominal pain. No diarrhea. No significant burning or frequency of urine. EXAMINATION: Blood pressure 141/71 with a pulse of 99, temperature 98.7, she is 99% on room air. General description is an elderly female lying in bed in no distress. Respiratory system: Unlabored breathing with decreased breath sounds in the bases. No wheeze. Heart S1, S2. Regular rate and rhythm. ABDOMEN: Soft, no tenderness. LABS: Hemoglobin is 11.2, white count of 11.2 with a BUN of 30, creatinine 0.45. Blood and urine culture as well as sputum cultures currently pending. DIAGNOSTIC IMPRESSION AND PLAN: Patient with low-grade fever, mild elevated white count. The patient did have a cough, sputum production, concern for possible left lower lobe pneumonia likely community acquired. The patient's fever seems to respond to Rocephin that will continue while waiting for the culture to finalize. Continue supportive care. MMODL / IJN: [id number] /
[2018-07-21] MEDS: HEPARIN SODIUM,PORCINE 5,000 UNIT/ML 1 ML VIAL SQ SCH ×3 (03:41→21:25)
[2018-07-21] MEDS: LACTATED RINGERS 1,000 ML IV SCH (05:05)
[2018-07-21] MEDS: LEVOTHYROXINE 112 MCG TAB PO SCH (05:49)
[2018-07-21] MEDS: traMADol 50 MG TAB PO PRN ×2 (07:18→17:18)
[2018-07-21] MEDS: MELOXICAM 7.5 MG TAB PO SCH (07:19)
[2018-07-21] MEDS: ALVIMOPAN 12 MG CAPSULE PO SCH ×2 (07:19→21:24)
[2018-07-21] MEDS: NICOTINE 14MG/24HR PATCH TRANSDERM SCH (07:19)
[2018-07-21] MEDS: FAMOTIDINE 20 MG/2 ML VIAL IV SCH ×2 (07:19→21:30)
[2018-07-21] MEDS: guaiFENesin 600 MG TABLET.ER PO PRN (07:30)
[2018-07-21] MEDS: IPRATROPIUM-ALBUTEROL 3 ML NEB INHALATION SCH ×4 (07:39→20:34)
[2018-07-21 07:56] LABS: ALT 17 U/L (9-52); AST 17 U/L (14-36); Albumin 2.7 g/dL (3.5-5.0); Alkaline Phosphatase 57 U/L (38-126); Anion Gap 4 mmol/L; Blood Urea Nitrogen 3 mg/dL (7-17); Calcium 9.2 mg/dL (8.4-10.2); Carbon Dioxide 26 mmol/L (22-30); Chloride 107 mmol/L (98-107); Glucose 106 mg/dL (74-99); Potassium 4.4 mmol/L (3.5-5.1); Sodium 137 mmol/L (137-145); Total Bilirubin 0.5 mg/dL (0.2-1.3); Total Protein 5.5 g/dL (6.3-8.2)
[2018-07-21 07:59] LABS: Basophils % (A) 1 %; Eosinophils # (A) 0.3 k/uL (0-0.7); Eosinophils % (A) 3 %; HCT 32.3 % (34.0-46.0); HGB 10.5 gm/dL (11.4-16.0); Lymphocytes # (A) 1.2 k/uL (1.0-4.8); Lymphocytes % (A) 14 %; MCH 31.6 pg (25.0-35.0); MCHC 32.6 g/dL (31.0-37.0); MCV 96.9 fL (80.0-100.0); Mean Platelet Volume 7.6; Monocytes # (A) 0.8 k/uL (0-1.0); Monocytes % (A) 9 %; Neutrophils % (A) 72 %; Platelet Count 213 k/uL (150-450); RBC 3.33 m/uL (3.80-5.40); WBC 8.4 k/uL (3.8-10.6)
[2018-07-21] MEDS: D5-0.45% NACL WITH KCL 20MEQ/L 1,000 ML IV SCH (08:00)
--- NOTE | 2018-07-21 09:53 | P.PN ---
Subjective Progress Note Date: 07/21/18 This is a 72-year-old female patient who presented for an elective exploratory lap, lower anterior resection, takedown of splenic flexure and repair small incisional hernia with Dr. Washington. Patient is postop day 1. Patient has a known past medical history of diverticulitis with frequent flareups. Additional medical history includes breast cancer in 2004 with radiation and chemo, Osteoarthritis, Hypothyroidism and nicotine dependence. Patient currently has epidural in place. At this time pain is adequately controlled. Patient is on clear liquid diet. Patient denies any gas or bowel movements at this time. Midline dressing noted to have bloody drainage. Abdominal binder in place. This time patient denies chest pain or shortness of breath. Patient denies nausea vomiting or diarrhea. Patient denies any urinary burning or frequency. Nicotine patch will be ordered On 07/19/2018 patient currently postop day 2. patient is currently sitting up in chair eating clear liquid diet. Per patient she is passing gas. Patient currently states her shortness of breath is improved with breathing treatments. Vision started on Zithromax and Rocephin for antibiotics for possible pneumonia and UTI. Encouraged patient to continue walking and incentive spirometer use. On 07/20/2018 patient is currently postop day 2. Patient is currently sitting up in bed. Patient remains on clear liquid diet. Dr. Goemz has been consulted for pneumonia and urinary tract infection. patient remains on IV Rocephin and oral Zithromax. Patient does state some improvement with shortness of breath. This time patient denies chest pain or shortness breath patient denies nausea vomiting or diarrhea. Patient denies any urinary burning or frequency. On 07/21/2018 patient is currently postop day 3. Patient is currently sitting up in bed. Patient remains on clear liquid diet. Patient is still complaining of abdominal pain. Will order wound cultures at this time. Infectious disease is following. Patient is still having productive cough. Pulmonary services following. Denies chest pain or shortness breath. Patient denies nausea vomiting or diarrhea. Patient denies any urinary burning or frequency. Patient has not had bowel movement yet Objective - Vital Signs Vital signs: Vital Signs Temp 97.9 F 07/21/18 07:00 Pulse 92 07/21/18 07:00 Resp 17 07/21/18 07:30 BP 182/82 07/21/18 07:00 Pulse Ox 97 07/21/18 07:00 Intake & Output 07/20/18 07/21/18 07/21/18 18:59 06:59 18:59 Intake Total 120 240 Balance 120 240 Intake: Oral 120 240 Other: Voiding Method Toilet # Voids 1 1 - Exam Head normocephalic Neck supple Lungs diminished bilaterally. Left lower lobe crackles to auscultation Heart regular rate and rhythm S1-S2, no rub or gallop Abdomen thorax bowel sounds. Dark blood shadowing to midline dressing. Abdominal binder in place Extremities no edema Neuro alert and orientated to 3 - Labs CBC & Chem 7: 07/21/18 06:53 07/21/18 06:53 Labs: Abnormal Lab Results - Last 24 Hours (Table) 07/21/18 07/21/18 Range/Units 06:53 06:53 RBC 3.33 L (3.80-5.40) m/uL Hgb 10.5 L (11.4-16.0) gm/dL Hct 32.3 L (34.0-46.0) % BUN 3 L (7-17) mg/dL Creatinine 0.44 L (0.52-1.04) mg/dL Glucose 106 H (74-99) mg/dL Total Protein 5.5 L (6.3-8.2) g/dL Albumin 2.7 L (3.5-5.0) g/dL Microbiology - Last 24 Hours (Table) 07/19/18 15:46 Gram Stain - Preliminary Sputum Sputum Culture - Preliminary 07/19/18 16:15 Blood Culture - Preliminary Blood No Growth after 24 hours Assessment and Plan Assessment: 1. Status post exploratory lap, lower anterior resection, takedown of splenic flexure and repair a small incisional hernia with Dr. Washington. Patient is currently postop day 3. Patient maintained on clear liquid diet. .Wound cultures have been ordered 2. History of diverticulitis 3. Nicotine dependence. Will order nicotine patch at this time. Patient educated greater than 3 minutes on smoking cessation 4. History of osteoarthritis 5. History of hypothyroidism. Synthroid resumed 6. History of breast cancer in 2004 with radiation and chemotherapy 7. Urinary tract infection. Patient started on Rocephin. Urine culture ordered 8. pneumonia. Chest x-ray showing left lower infiltrate and small amount of free intraperitoneal air suspected. Per nursing staff Dr. Washington made aware of chest x-ray findings no new orders. Patient started on Zithromax and Rocephin IV antibiotics. Continue DuoNeb breathing treatment sputum culture ordered. Infectious disease following for pneumonia and UTI. Patient remains on IV Rocephin and oral azithromycin. Dr. Monterroso also consulted for pulmonary services DVT prophylaxis heparin. Incentive spirometer encouraged SCDs in place Thank you for this consultation we will continue to follow patient closely throughout stay I performed an examination of the patient and discussed their management with the Nurse Practitioner. I have reviewed the Nurse Practitioner's notes and agree with the documented findings and plan of care
[2018-07-21] MEDS: AZITHROMYCIN 500 MG in SODIUM CHLORIDE 0.9% 250 ML IVPB SCH (11:36)
--- NOTE | 2018-07-21 13:05 | P.PN ---
Progress Note - Text Progress Note Date: 07/21/18 The patient's resting comfortably liver bed. She has minimal complete the pain. She's had multiple bowel movements. The nurses have noted some drainage from her incision. On exam her vital signs are stable. Her abdomen soft. There is some serous drainage from the midportion incision. There is no evidence of any purulent drainage. The patient is postoperative day day 5 low anterior resection for diverticulitis. Patient will have her diet advanced. She will have local wound care performed for incision. We will watch her closely.
--- NOTE | 2018-07-21 15:22 | P.PN ---
Subjective Progress Note Date: 07/21/18 This is a 70-year-old female patient who presented for an elective extra 10 laparotomy and low anterior resection, takedown of the splenic flexure and repair of a small incisional hernia in the surgery was done. The patient is currently postop day #3. Note that the patient was having frequent bouts of diverticulitis and for that reason further decided to proceed with the surgery. She is known to have previous history of breast cancer and she has undergone mastectomy followed by radiation therapy and she has chronic scarring in the right apical area that was seen on previous CAT scans of the chest. She has also received hemotherapy. She has been in remission in regards to her breast cancer. She is an ex-smoker. She has hypothyroidism as another comorbid conditions. The patient also has severe kyphoscoliosis of the chest with DEXA scoliosis of the thoracic spine. At this point in time, the patient on a combination of antibiotics including Zithromax and Rocephin. UTI was suspected based on that the antibiotics were broadened. In terms of breathing, the patient has a congested cough. No significant sputum production. Chest x-ray shows severe kyphoscoliosis of the chest and there is no acute other modalities noted. Diaphragms are clear. No significant respiratory distress. She is having a congested cough. The patient does opt utilizes home oxygen. The patient has been maintained on no inhalers on outpatient basis. In terms of her surgical progress, no nausea and no vomiting and the surgical wound site is dry clean and intact at this point in time. Abdominal binder is in place. On today's evaluation of 07/21/2018, the patient is recovering from her surgery. The abdominal wound is dry clean and intact with some limited amount of serosanguineous material being seen at the wound surface and the edges. Sandy are all in place. Bowel sounds are present. Most of the valvular further breath. She has a congested cough. No sputum production. She is on Mucinex pH is also on DuoNeb nebulized treatments around the clock. She is performing her incentive spirometer. Objective - Vital Signs Vital signs: Vital Signs Temp 97.9 F 07/21/18 07:00 Pulse 84 07/21/18 11:01 Resp 17 07/21/18 07:30 BP 182/82 07/21/18 07:00 Pulse Ox 97 07/21/18 07:00 Intake & Output 07/20/18 07/21/18 07/21/18 18:59 06:59 18:59 Intake Total 120 420 Balance 120 420 Intake: Oral 120 420 Other: Voiding Method Toilet # Voids 1 1 - Exam Appearance the patient is calm comfortable likely distress. She is not using excessive muscle breathing. Head exam was generally normal. There was no scleral icterus or corneal arcus. Mucous membranes were moist. Neck was supple and without jugular venous distension, thyromegaly, or carotid bruits. Carotids were easily palpable bilaterally. There was no adenopathy. Lungs sounds are showing equal and symmetrical breath sounds bilaterally. Scattered rhonchi. There is severe lows of the thoracic spine and this deformities clearly appreciated on physical examination. Cardiac exam revealed the PMI to be normally situated and sized. The rhythm was regular and no extrasystoles were noted during several minutes of auscultation. The first and second heart sounds were normal and physiologic splitting of the second heart sound was noted. There were no murmurs, rubs, clicks, or gallops. Abdominal exam revealed normal bowel sounds. The abdomen was soft, non-tender, and without masses, organomegaly, or appreciable enlargement of the abdominal aorta. The abdominal wound is dry clean and intact a bowel sounds are present. There is some dark blood shadowing the midline dressing. The patient is wearing an abdominal binder. Examination of the extremities revealed easily palpable radial, femoral and pedal pulses. There was no cyanosis, clubbing or edema. Examination of the skin revealed no evidence of significant rashes, suspicious appearing nevi or other concerning lesions. Neurologically awake and alert and there is no focal neurological deficit. - Labs CBC & Chem 7: 07/21/18 06:53 07/21/18 06:53 Labs: Abnormal Lab Results - Last 24 Hours (Table) 07/21/18 07/21/18 Range/Units 06:53 06:53 RBC 3.33 L (3.80-5.40) m/uL Hgb 10.5 L (11.4-16.0) gm/dL Hct 32.3 L (34.0-46.0) % BUN 3 L (7-17) mg/dL Creatinine 0.44 L (0.52-1.04) mg/dL Glucose 106 H (74-99) mg/dL Total Protein 5.5 L (6.3-8.2) g/dL Albumin 2.7 L (3.5-5.0) g/dL Microbiology - Last 24 Hours (Table) 07/19/18 15:46 Gram Stain - Preliminary Sputum Sputum Culture - Preliminary 07/19/18 16:15 Blood Culture - Preliminary Blood No Growth after 24 hours Assessment and Plan Plan: Assessment 1 low anterior resection in addition to resection of the splenic flexure of the colon and repair of a small incisional hernia and the patient is postop day #4. The surgery was originally to treat this patient's recurrent diverticulitis complications 2 severe scoliosis of the thoracic spine 3 COPD 4 chest congestion without indication of an underlying pneumonia. Could be related to poor pulmonary toileting. Pneumonia cannot be completely excluded. 5 hypothyroidism 6 history of breast cancer with previous mastectomy followed by radiation therapy and chemotherapy 2004 7 chronic right apical scarring probably related to previous radiation therapy. This is a finding that has been present on previous CAT scan of the chest and there is no indication of any malignancy involving the lungs 8 UTI currently on Rocephin Plan Continue same treatment. Aggressive pulmonary toileting. Incentive spirometer. Pneumonia is doubtful. Wound care. Ambulation. We'll follow as needed.
--- NOTE | 2018-07-21 22:14 | PN ---
PROGRESS NOTE DATE OF SERVICE: 07/21/2018. REASON FOR FOLLOWUP: Pneumonia and UTI. INTERVAL HISTORY: The patient is afebrile. She seems to be breathing comfortably. Denies having any chest pain. Occasional cough. No nausea or vomiting. No abdominal pain or diarrhea. EXAMINATION: Blood pressure 139/80 with a pulse of 84, temperature 98.3. She is 96% on room air. General description is an elderly female lying in bed in no distress. Respiratory system: Unlabored breathing. Decreased breath sounds in the bases. No wheeze. Heart S1, S2. Regular rate and rhythm. ABDOMEN: Soft. No tenderness. Extremities: No edema of the feet. LABS: Hemoglobin is 10.5, white count 8.4, BUN of 10, creatinine 0.44. DIAGNOSTIC IMPRESSION AND PLAN: Patient admitted to the hospital electively for a low anterior resection. The patient did have a low-grade fever and also have a cough with brown sputum, sputum and blood and urine culture so far negative. Patient is currently covered with Rocephin that will be continued for now while watching clinical course closely. Continue supportive care. MMODL / IJN: [id number] /
[2018-07-22] MEDS: D5-0.45% NACL WITH KCL 20MEQ/L 1,000 ML IV SCH ×2 (00:01→11:03)
[2018-07-22] MEDS: LACTATED RINGERS 1,000 ML IV SCH (01:28)
[2018-07-22] MEDS: traMADol 50 MG TAB PO PRN (05:04)
[2018-07-22] MEDS: HEPARIN SODIUM,PORCINE 5,000 UNIT/ML 1 ML VIAL SQ SCH ×3 (05:05→20:52)
[2018-07-22] MEDS: LEVOTHYROXINE 112 MCG TAB PO SCH (05:14)
[2018-07-22] MEDS: IPRATROPIUM-ALBUTEROL 3 ML NEB INHALATION SCH ×4 (08:22→19:33)
[2018-07-22] MEDS: MELOXICAM 7.5 MG TAB PO SCH (08:27)
[2018-07-22] MEDS: guaiFENesin 600 MG TABLET.ER PO PRN (08:27)
[2018-07-22] MEDS: NICOTINE 14MG/24HR PATCH TRANSDERM SCH (08:27)
[2018-07-22] MEDS: ALVIMOPAN 12 MG CAPSULE PO SCH ×2 (08:28→20:52)
[2018-07-22] MEDS: FAMOTIDINE 20 MG/2 ML VIAL IV SCH ×2 (08:28→20:52)
[2018-07-22 10:03] LABS: Basophils % (A) 0 %; Eosinophils # (A) 0.3 k/uL (0-0.7); Eosinophils % (A) 4 %; HGB 10.7 gm/dL (11.4-16.0); Lymphocytes # (A) 1.3 k/uL (1.0-4.8); Lymphocytes % (A) 18 %; MCH 31.8 pg (25.0-35.0); MCHC 33.4 g/dL (31.0-37.0); MCV 95.4 fL (80.0-100.0); Mean Platelet Volume 8.4; Monocytes # (A) 0.7 k/uL (0-1.0); Monocytes % (A) 10 %; Neutrophils # (A) 5.2 k/uL (1.3-7.7); Neutrophils % (A) 68 %; Platelet Count 255 k/uL (150-450); RBC 3.36 m/uL (3.80-5.40); RDW 13.2 % (11.5-15.5); WBC 7.7 k/uL (3.8-10.6)
[2018-07-22 10:07] LABS: ALT 19 U/L (9-52); AST 13 U/L (14-36); Albumin 2.7 g/dL (3.5-5.0); Alkaline Phosphatase 62 U/L (38-126); Anion Gap 8 mmol/L; Blood Urea Nitrogen 2 mg/dL (7-17); Calcium 9.2 mg/dL (8.4-10.2); Carbon Dioxide 25 mmol/L (22-30); Chloride 103 mmol/L (98-107); Glucose 91 mg/dL (74-99); Potassium 4.1 mmol/L (3.5-5.1); Sodium 136 mmol/L (137-145); Total Bilirubin 0.5 mg/dL (0.2-1.3); Total Protein 5.5 g/dL (6.3-8.2)
--- NOTE | 2018-07-22 11:46 | P.PN ---
Subjective Progress Note Date: 07/22/18 This is a 72-year-old female patient who presented for an elective exploratory lap, lower anterior resection, takedown of splenic flexure and repair small incisional hernia with Dr. Washington. Patient is postop day 1. Patient has a known past medical history of diverticulitis with frequent flareups. Additional medical history includes breast cancer in 2004 with radiation and chemo, Osteoarthritis, Hypothyroidism and nicotine dependence. Patient currently has epidural in place. At this time pain is adequately controlled. Patient is on clear liquid diet. Patient denies any gas or bowel movements at this time. Midline dressing noted to have bloody drainage. Abdominal binder in place. This time patient denies chest pain or shortness of breath. Patient denies nausea vomiting or diarrhea. Patient denies any urinary burning or frequency. Nicotine patch will be ordered On 07/19/2018 patient currently postop day 2. patient is currently sitting up in chair eating clear liquid diet. Per patient she is passing gas. Patient currently states her shortness of breath is improved with breathing treatments. Vision started on Zithromax and Rocephin for antibiotics for possible pneumonia and UTI. Encouraged patient to continue walking and incentive spirometer use. On 07/20/2018 patient is currently postop day 2. Patient is currently sitting up in bed. Patient remains on clear liquid diet. Dr. Gomez has been consulted for pneumonia and urinary tract infection. patient remains on IV Rocephin and oral Zithromax. Patient does state some improvement with shortness of breath. This time patient denies chest pain or shortness breath patient denies nausea vomiting or diarrhea. Patient denies any urinary burning or frequency. On 07/21/2018 patient is currently postop day 3. Patient is currently sitting up in bed. Patient remains on clear liquid diet. Patient is still complaining of abdominal pain. Will order wound cultures at this time. Infectious disease is following. Patient is still having productive cough. Pulmonary services following. Denies chest pain or shortness breath. Patient denies nausea vomiting or diarrhea. Patient denies any urinary burning or frequency. Patient has not had bowel movement yet On 07/22/2018 patient is currently postop day 3. Patient is currently lying in bed. Patient has been advanced to a soft diet. Patient reports she had bowel movement last night. Patient is still complaining of significant abdominal pain. Wound cultures have been ordered. ID following. At this time patient states shortness of breath is improving. Patient denies chest pain. Patient denies any nausea or vomiting. Patient denies any urinary burning or frequency Objective - Vital Signs Vital signs: Vital Signs Temp 98.3 F 07/22/18 07:00 Pulse 84 07/22/18 08:35 Resp 18 07/22/18 08:00 BP 165/77 07/22/18 07:00 Pulse Ox 96 07/22/18 00:13 Intake & Output 07/21/18 07/22/18 07/22/18 18:59 06:59 18:59 Intake Total 642 600 Balance 642 600 Intake: Intake, IV Titration 600 Amount D5-0.45% NaCl with KCl 600 20Meq/l 1,000 ml @ 75 mls /hr IV .[id number] [facility] Rx#: [id number] Oral 642 Other: Voiding Method Toilet Toilet # Voids 1 1 - Exam Head normocephalic Neck supple Lungs diminished bilaterally. Left lower lobe crackles to auscultation Heart regular rate and rhythm S1-S2, no rub or gallop Abdomen thorax bowel sounds. Dark blood shadowing to midline dressing. Abdominal binder in place Extremities no edema Neuro alert and orientated to 3 - Labs CBC & Chem 7: 07/22/18 08:22 07/22/18 08:22 Labs: Abnormal Lab Results - Last 24 Hours (Table) 07/22/18 07/22/18 Range/Units 08:22 08:22 RBC 3.36 L (3.80-5.40) m/uL Hgb 10.7 L (11.4-16.0) gm/dL Hct 32.0 L (34.0-46.0) % Sodium 136 L (137-145) mmol/L BUN 2 L (7-17) mg/dL Creatinine 0.46 L (0.52-1.04) mg/dL AST 13 L (14-36) U/L Total Protein 5.5 L (6.3-8.2) g/dL Albumin 2.7 L (3.5-5.0) g/dL Microbiology - Last 24 Hours (Table) 07/21/18 11:00 Gram Stain - Preliminary Abdomen Wound Culture - Preliminary Gram Neg Bacilli 07/19/18 15:46 Gram Stain - Final Sputum Sputum Culture - Final 07/19/18 16:15 Blood Culture - Preliminary Blood No Growth after 48 hours 07/21/18 11:00 Anaerobic Culture - Preliminary Abdomen Assessment and Plan Assessment: 1. Status post exploratory lap, lower anterior resection, takedown of splenic flexure and repair a small incisional hernia with Dr. Washington. Patient is currently postop day 4. Patient has been advanced with soft regular diet. Wound cultures have been ordered 2. History of diverticulitis 3. Nicotine dependence. Will order nicotine patch at this time. Patient educated greater than 3 minutes on smoking cessation 4. History of osteoarthritis 5. History of hypothyroidism. Synthroid resumed 6. History of breast cancer in 2004 with radiation and chemotherapy 7. Urinary tract infection. Patient started on Rocephin. Urine culture ordered 8. pneumonia. Chest x-ray showing left lower infiltrate and small amount of free intraperitoneal air suspected. Per nursing staff Dr. Washington made aware of chest x-ray findings no new orders. Patient started on Zithromax and Rocephin IV antibiotics. Continue DuoNeb breathing treatment sputum culture ordered. Infectious disease following for pneumonia and UTI. Patient remains on IV Rocephin and oral azithromycin. Per pulmonary services doubt pneumonia. Continue aggressive pulmonary toileting and incentive spirometer. DVT prophylaxis heparin. Incentive spirometer encouraged SCDs in place Thank you for this consultation we will continue to follow patient closely throughout stay I performed an examination of the patient and discussed their management with the Nurse Practitioner. I have reviewed the Nurse Practitioner's notes and agree with the documented findings and plan of care
[2018-07-22] MEDS: AZITHROMYCIN 500 MG in SODIUM CHLORIDE 0.9% 250 ML IVPB SCH (12:27)
[2018-07-22] MEDS: HYDROmorphone 1 MG/ML 1 ML SYRINGE IVP PRN (12:36)
[2018-07-22] MEDS: ONDANSETRON 4 MG/2 ML VIAL IVP PRN (12:37)
--- NOTE | 2018-07-22 13:09 | P.PN ---
Subjective Progress Note Date: 07/22/18 73-year-old seen postop visit currently resting in bed. Patient states had bowel movement last night passing gas. Abdominal binder in place moderate amount of serous drainage noted on the dressing reports no nausea vomiting postop July exploratory laparotomy, low anterior resection, takedown of splenic flexure, repair of small incisional hernia for diverticulitis Objective - Vital Signs Vital signs: Vital Signs Temp 98.3 F 07/22/18 07:00 Pulse 80 07/22/18 12:23 Resp 18 07/22/18 08:00 BP 165/77 07/22/18 07:00 Pulse Ox 96 07/22/18 00:13 Intake & Output 07/21/18 07/22/18 07/22/18 18:59 06:59 18:59 Intake Total 642 600 Balance 642 600 Intake: Intake, IV Titration 600 Amount D5-0.45% NaCl with KCl 600 20Meq/l 1,000 ml @ 75 mls /hr IV .[id number] [facility] Rx#: [id number] Oral 642 Other: Voiding Method Toilet Toilet # Voids 1 1 - Exam Physical exam 73-year-old female sitting up in bed Appears in no acute distress Lungs scattered rhonchi otherwise adequate air movement bilaterally Heart S1-S2 audible regular denying chest pain Abdomen abdominal binder in place states had a bowel movement last night passing gas no nausea no vomiting abdominal binder in place surgical dressing moderate amount of serous drainage noted on the dressing on the binder Extremities no edema noted - Labs CBC & Chem 7: 07/22/18 08:22 07/22/18 08:22 Labs: Abnormal Lab Results - Last 24 Hours (Table) 07/22/18 07/22/18 Range/Units 08:22 08:22 RBC 3.36 L (3.80-5.40) m/uL Hgb 10.7 L (11.4-16.0) gm/dL Hct 32.0 L (34.0-46.0) % Sodium 136 L (137-145) mmol/L BUN 2 L (7-17) mg/dL Creatinine 0.46 L (0.52-1.04) mg/dL AST 13 L (14-36) U/L Total Protein 5.5 L (6.3-8.2) g/dL Albumin 2.7 L (3.5-5.0) g/dL Microbiology - Last 24 Hours (Table) 07/21/18 11:00 Gram Stain - Preliminary Abdomen Wound Culture - Preliminary Gram Neg Bacilli 07/19/18 15:46 Gram Stain - Final Sputum Sputum Culture - Final 07/19/18 16:15 Blood Culture - Preliminary Blood No Growth after 48 hours 07/21/18 11:00 Anaerobic Culture - Preliminary Abdomen Assessment and Plan Assessment: Impression Present on admission small incisional hernia Status post July 17 exploratory laparotomy, low anterior resection, takedown of splenic flexure, repair of small incisional hernia for diverticulitis Chronic left lower quadrant abdominal pain suspect due to diverticulitis History of breast cancer 2004 received chemotherapy and radiation Current every day smoker Chest x-ray obtained July 19 report indicates left lower lobe infiltrate Present on admission UTI 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 Lori Ortez nurse practitioner acting as scribe for signing physician.
--- NOTE | 2018-07-22 23:26 | PN ---
PROGRESS NOTE DATE OF SERVICE: 07/22/2018. REASON FOR FOLLOWUP: Pneumonia, possible UTI. INTERVAL HISTORY: The patient is afebrile. She was noticed to have slight drainage from her abdominal incision which has been cultured. The patient does complain of some lower abdominal pain, dull, aching 3 to 4/10. Some nausea but no vomiting and no diarrhea. She denies having any chest pain or shortness of breath. Occasional cough. PHYSICAL EXAMINATION: Blood pressure is 144/77 with a pulse of 80, temperature 98.5 she is 94% on room air. General description is an elderly female, lying in bed in no distress. Respiratory system: Unlabored breathing, clear to auscultation anteriorly. Heart S1, S2. Regular. ABDOMEN: Soft. Midline incision is currently with minimal serous drainage. No redness or any foul-smelling drainage was noticed. LABS: Hemoglobin is 10.7, white count 7.7, BUN of 2, creatinine 0.46. DIAGNOSTIC IMPRESSION AND PLAN: Patient with admission to hospital for low anterior resection and sigmoid colectomy because of recurrent diverticulitis with low-grade fever, concern for possible pneumonia versus urinary tract infection. However, culture remains to be negative. Her white count has normalized. Currently on Rocephin that will be continued for now. She did have mild serous drainage from abdominal incision. Clinical suspicion is low for underlying abscess. We will continue to monitor closely. Continue supportive care. MMODL / IJN: [id number] /
[2018-07-23] MEDS: D5-0.45% NACL WITH KCL 20MEQ/L 1,000 ML IV SCH ×2 (00:40→13:44)
[2018-07-23] MEDS: HYDROmorphone 1 MG/ML 1 ML SYRINGE IVP PRN ×2 (01:53→19:02)
[2018-07-23] MEDS: HEPARIN SODIUM,PORCINE 5,000 UNIT/ML 1 ML VIAL SQ SCH ×3 (04:40→20:33)
[2018-07-23] MEDS: LEVOTHYROXINE 112 MCG TAB PO SCH (04:42)
[2018-07-23] MEDS: IPRATROPIUM-ALBUTEROL 3 ML NEB INHALATION SCH ×4 (07:08→19:45)
[2018-07-23 09:50] LABS: Basophils % (A) 0 %; Eosinophils # (A) 0.2 k/uL (0-0.7); Eosinophils % (A) 3 %; HCT 33.5 % (34.0-46.0); HGB 10.6 gm/dL (11.4-16.0); Lymphocytes # (A) 1.4 k/uL (1.0-4.8); Lymphocytes % (A) 18 %; MCH 30.1 pg (25.0-35.0); MCHC 31.7 g/dL (31.0-37.0); Monocytes # (A) 0.6 k/uL (0-1.0); Monocytes % (A) 8 %; Neutrophils # (A) 5.5 k/uL (1.3-7.7); Neutrophils % (A) 69 %; Platelet Count 300 k/uL (150-450); RBC 3.52 m/uL (3.80-5.40); RDW 13.2 % (11.5-15.5); WBC 7.9 k/uL (3.8-10.6)
[2018-07-23 10:00] LABS: ALT 25 U/L (9-52); AST 14 U/L (14-36); Albumin 2.8 g/dL (3.5-5.0); Alkaline Phosphatase 65 U/L (38-126); Anion Gap 6 mmol/L; Blood Urea Nitrogen 2 mg/dL (7-17); Calcium 9.2 mg/dL (8.4-10.2); Carbon Dioxide 30 mmol/L (22-30); Chloride 102 mmol/L (98-107); Glucose 99 mg/dL (74-99); Potassium 4.1 mmol/L (3.5-5.1); Sodium 138 mmol/L (137-145); Total Bilirubin 0.3 mg/dL (0.2-1.3); Total Protein 5.6 g/dL (6.3-8.2)
--- NOTE | 2018-07-23 10:07 | P.PN ---
Subjective Progress Note Date: 07/23/18 This is a 72-year-old female patient who presented for an elective exploratory lap, lower anterior resection, takedown of splenic flexure and repair small incisional hernia with Dr. Washington. Patient is postop day 1. Patient has a known past medical history of diverticulitis with frequent flareups. Additional medical history includes breast cancer in 2004 with radiation and chemo, Osteoarthritis, Hypothyroidism and nicotine dependence. Patient currently has epidural in place. At this time pain is adequately controlled. Patient is on clear liquid diet. Patient denies any gas or bowel movements at this time. Midline dressing noted to have bloody drainage. Abdominal binder in place. This time patient denies chest pain or shortness of breath. Patient denies nausea vomiting or diarrhea. Patient denies any urinary burning or frequency. Nicotine patch will be ordered On 07/19/2018 patient currently postop day 2. patient is currently sitting up in chair eating clear liquid diet. Per patient she is passing gas. Patient currently states her shortness of breath is improved with breathing treatments. [facility] started on Zithromax and Rocephin for antibiotics for possible pneumonia and UTI. Encouraged patient to continue walking and incentive spirometer use. On 07/20/2018 patient is currently postop day 2. Patient is currently sitting up in bed. Patient remains on clear liquid diet. Dr. Gomez has been consulted for pneumonia and urinary tract infection. patient remains on IV Rocephin and oral Zithromax. Patient does state some improvement with shortness of breath. This time patient denies chest pain or shortness breath patient denies nausea vomiting or diarrhea. Patient denies any urinary burning or frequency. On 07/21/2018 patient is currently postop day 3. Patient is currently sitting up in bed. Patient remains on clear liquid diet. Patient is still complaining of abdominal pain. Will order wound cultures at this time. Infectious disease is following. Patient is still having productive cough. Pulmonary services following. Denies chest pain or shortness breath. Patient denies nausea vomiting or diarrhea. Patient denies any urinary burning or frequency. Patient has not had bowel movement yet On 07/22/2018 patient is currently postop day 4. Patient is currently lying in bed. Patient has been advanced to a soft diet. Patient reports she had bowel movement last night. Patient is still complaining of significant abdominal pain. Wound cultures have been ordered. ID following. At this time patient states shortness of breath is improving. Patient denies chest pain. Patient denies any nausea or vomiting. Patient denies any urinary burning or frequency On 07/23/2018 patient is currently postop day 5. Patient is currently lying in bed. Patient has been tolerating diet. Patient did have a bowel movement yesterday. Patient is complaining of burning with urination. Patient is on Rocephin and Zithromax. Urine culture currently showing no growth. Infectious disease following. This time patient states shortness of breath is improving. Patient denies nausea vomiting or diarrhea. Patient denies chest pain. Objective - Vital Signs Vital signs: Vital Signs Temp 98.2 F 07/23/18 07:30 Pulse 86 07/23/18 07:30 Resp 16 07/23/18 07:30 BP 152/80 07/23/18 07:30 Pulse Ox 93 L 07/23/18 07:30 Intake & Output 07/22/18 07/23/18 07/23/18 18:59 06:59 18:59 Intake Total 1080 Balance 1080 Weight 59.874 kg 59.874 kg Intake: Intake, IV Titration 600 Amount cefTRIAXone 1,000 mg In 600 Sodium Chloride 0.9% 50 ml @ 100 mls/hr IVPB Q24HR [facility] Rx#:[id number] Oral 480 Other: Voiding Method Toilet # Voids 2 - Exam Head normocephalic Neck supple Lungs diminished bilaterally. Left lower lobe crackles to auscultation Heart regular rate and rhythm S1-S2, no rub or gallop Abdomen Acitvbe bowel sounds. Serousangous drainage to abdominal dressing Extremities no edema Neuro alert and orientated to 3 - Labs CBC & Chem 7: 07/22/18 08:22 07/23/18 09:07 Labs: Abnormal Lab Results - Last 24 Hours (Table) 07/22/18 07/22/18 07/23/18 Range/Units 08:22 08:22 09:07 RBC 3.36 L (3.80-5.40) m/uL Hgb 10.7 L (11.4-16.0) gm/dL Hct 32.0 L (34.0-46.0) % Sodium 136 L (137-145) mmol/L BUN 2 L 2 L (7-17) mg/dL Creatinine 0.46 L 0.49 L (0.52-1.04) mg/dL AST 13 L (14-36) U/L Total Protein 5.5 L 5.6 L (6.3-8.2) g/dL Albumin 2.7 L 2.8 L (3.5-5.0) g/dL Microbiology - Last 24 Hours (Table) 07/19/18 16:15 Blood Culture - Preliminary Blood No Growth after 72 hours 07/21/18 11:00 Gram Stain - Preliminary Abdomen Wound Culture - Preliminary Gram Neg Bacilli 07/19/18 15:46 Gram Stain - Final Sputum Sputum Culture - Final Assessment and Plan Assessment: 1. Status post exploratory lap, lower anterior resection, takedown of splenic flexure and repair a small incisional hernia with Dr. Washington. Patient is currently postop day . Patient has been advanced with soft regular diet. Wound culture currently going gram-negative bacilli. Infectious disease is following 2. History of diverticulitis 3. Nicotine dependence. Will order nicotine patch at this time. Patient educated greater than 3 minutes on smoking cessation 4. History of osteoarthritis 5. History of hypothyroidism. Synthroid resumed 6. History of breast cancer in 2004 with radiation and chemotherapy 7. Urinary tract infection. Patient started on Rocephin. Urine currently showing no growth. 8. pneumonia. Chest x-ray showing left lower infiltrate and small amount of free intraperitoneal air suspected. Per nursing staff Dr. Washington made aware of chest x-ray findings no new orders. Patient started on Zithromax and Rocephin IV antibiotics. Continue DuoNeb breathing treatment sputum culture ordered. Infectious disease following for pneumonia and UTI. Patient remains on IV Rocephin and oral azithromycin. Per pulmonary services doubt pneumonia. Continue aggressive pulmonary toileting and incentive spirometer. DVT prophylaxis heparin. Incentive spirometer encouraged SCDs in place Thank you for this consultation we will continue to follow patient closely throughout stay I performed an examination of the patient and discussed their management with the Nurse Practitioner. I have reviewed the Nurse Practitioner's notes and agree with the documented findings and plan of care
[2018-07-23] MEDS: MELOXICAM 7.5 MG TAB PO SCH (10:52)
[2018-07-23] MEDS: FAMOTIDINE 20 MG/2 ML VIAL IV SCH ×2 (10:52→20:33)
[2018-07-23] MEDS: NICOTINE 14MG/24HR PATCH TRANSDERM SCH (10:52)
[2018-07-23] MEDS: ALVIMOPAN 12 MG CAPSULE PO SCH ×2 (10:52→20:33)
[2018-07-23] MEDS: LACTATED RINGERS 1,000 ML IV SCH (10:53)
--- NOTE | 2018-07-23 12:43 | P.PN ---
Subjective Progress Note Date: 07/23/18 73-year-old female seen at the bedside noted patient has had a moderate amount of serous drainage from the mid umbilical incision site qamar in place well approximated suture line no redness. Patient's denying any chest pain dizziness or lightheadedness or shortness of breath. Wears an abdominal binder when up states had a bowel movement yesterday. Patients being followed by medicine being treated for UTI and Rocephin and zithomax urine culture showing no growth today postop July exploratory laparotomy, low anterior resection, takedown of splenic flexure, repair of small incisional hernia for diverticulitis Objective - Vital Signs Vital signs: Vital Signs Temp 98.2 F 07/23/18 07:30 Pulse 82 07/23/18 11:49 Resp 16 07/23/18 07:30 BP 152/80 07/23/18 07:30 Pulse Ox 93 L 07/23/18 07:30 Intake & Output 07/22/18 07/23/18 07/23/18 18:59 06:59 18:59 Intake Total 1080 Balance 1080 Weight 59.874 kg 59.874 kg Intake: Intake, IV Titration 600 Amount cefTRIAXone 1,000 mg In 600 Sodium Chloride 0.9% 50 ml @ 100 mls/hr IVPB Q24HR [facility] Rx#:[id number] Oral 480 Other: Voiding Method Toilet # Voids 2 - Exam physical exam 73-year-old female sitting up in bed appears in no acute distress Lungs adequate air movement bilaterally Heart S1-S2 audible regular Abdomen abdominal binder removed surgical dressing in place moderate amount of serous drainage noted on the dressing noted serous drainage from the umbilical suture site with qamar in place no redness states had a bowel movement yesterday reports no nausea no vomiting tolerating diet Extremities no edema noted - Labs CBC & Chem 7: 07/23/18 09:07 07/23/18 09:07 Labs: Abnormal Lab Results - Last 24 Hours (Table) 07/23/18 07/23/18 Range/Units 09:07 09:07 RBC 3.52 L (3.80-5.40) m/uL Hgb 10.6 L (11.4-16.0) gm/dL Hct 33.5 L (34.0-46.0) % BUN 2 L (7-17) mg/dL Creatinine 0.49 L (0.52-1.04) mg/dL Total Protein 5.6 L (6.3-8.2) g/dL Albumin 2.8 L (3.5-5.0) g/dL Microbiology - Last 24 Hours (Table) 07/19/18 16:15 Blood Culture - Preliminary Blood No Growth after 72 hours 07/21/18 11:00 Gram Stain - Preliminary Abdomen Wound Culture - Preliminary Gram Neg Bacilli 07/19/18 15:46 Gram Stain - Final Sputum Sputum Culture - Final Assessment and Plan Assessment: Impression Present on admission small incisional hernia Status post July 17 exploratory laparotomy, low anterior resection, takedown of splenic flexure, repair of small incisional hernia for diverticulitis Chronic left lower quadrant abdominal pain suspect due to diverticulitis History of breast cancer 2004 received chemotherapy and radiation Current every day smoker Chest x-ray obtained July 19 report indicates left lower lobe infiltrate Present on admission UTI 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 Delaneyed to follow up on the drainage from the incision site which has been cultured current cultures are pending Continue postop surgical care Increase use of incentive spirometer IV antibiotics per infectious disease DVT and GI prophylaxis Encouraged patient to walk at least 4 times in the hallway The above impression and plan of care have been discussed and directed by signing physician. Lori Ortez nurse practitioner acting as scribe for signing physician.
[2018-07-23] MEDS: AZITHROMYCIN 500 MG in SODIUM CHLORIDE 0.9% 250 ML IVPB SCH (13:45)
[2018-07-23] MEDS ORDERED: PHENAZOPYRIDINE 100 MG TAB PO SCH (16:00)
--- NOTE | 2018-07-23 22:55 | PN ---
PROGRESS NOTE DATE OF SERVICE: 07/23/2028. REASON FOR FOLLOWUP: 1. Possible UTI. 2. Abdominal wound dehiscence. INTERVAL HISTORY: The patient is currently afebrile. Abdominal pain has improved. The patient has minimal drainage from it. Denies any chest pain or shortness of breath. She continues to have some cough but no nausea. No vomiting. No diarrhea. EXAMINATION: Blood pressure 107/84 with a pulse of 70. Temperature 98.4. She is 92% on room air. General description is a middle aged female, lying in bed in no distress. Respiratory system: Unlabored breathing with decreased breath sounds in the bases. No wheeze. Heart S1, S2. Regular rate and rhythm. Abdomen is soft. No tenderness. Wound is currently dressed up. No obvious drainage on the dressing. EXTREMITIES: No edema of the feet. LABS: Hemoglobin is 10.6, white count 7.8 with a BUN of 12, creatinine 0.49. The abdominal wound cultures are currently showing gram-negative bacilli. DIAGNOSTIC IMPRESSION AND PLAN: Patient with admission to the hospital for a low anterior resection because of recurrent diverticulitis. The patient did have a low-grade fever, concern for possible pneumonia initially. The patient's fever seemed to have resolved. However, seemed to have a problem with mild dehiscence of the abdominal wound with wound cultures currently showing gram-negative bacilli. Antibiotic switched to Zosyn, possible surgical exploration tomorrow. Recommend obtaining deep cultures both aerobic, anaerobic and continue supportive care. MMODL / IJN: [id number] / MTDStephanie
[2018-07-23] MEDS: PIPERACILLIN-TAZOBACTAM 3.375 GM in SODIUM CHLORIDE 0.9% 100 ML IVPB SCH (23:32)
[2018-07-24 00:06] LABS: Appearance,Urine Clear (Clear); Bilirubin,Urine Negative (Negative); Blood,Urine Negative (Negative); Color,Urine Yellow; Glucose,Urine (UA) Negative (Negative); Ketones,Urine Negative (Negative); Leukocyte Esterase,Urine Negative (Negative); Nitrite,Urine Negative (Negative); Protein,Urine Negative (Negative); Specific Gravity,Urine 1.008 (1.001-1.035); Urobilinogen,Urine <2.0 mg/dL (<2.0)
[2018-07-24] MEDS: HYDROmorphone 1 MG/ML 1 ML SYRINGE IVP PRN ×5 (00:32→21:19)
[2018-07-24] MEDS: D5-0.45% NACL WITH KCL 20MEQ/L 1,000 ML IV SCH ×2 (02:10→18:26)
[2018-07-24] MEDS: LACTATED RINGERS 1,000 ML IV SCH ×3 (03:49→23:33)
[2018-07-24] MEDS: HEPARIN SODIUM,PORCINE 5,000 UNIT/ML 1 ML VIAL SQ SCH ×4 (03:49→20:37)
[2018-07-24] MEDS: LEVOTHYROXINE 112 MCG TAB PO SCH (05:39)
[2018-07-24] MEDS: IPRATROPIUM-ALBUTEROL 3 ML NEB INHALATION SCH ×4 (07:04→19:26)
[2018-07-24] MEDS: ALVIMOPAN 12 MG CAPSULE PO SCH ×3 (08:00→21:12)
[2018-07-24] MEDS: METOCLOPRAMIDE 5 MG/ML 2 ML VIAL IVP PRN (08:00)
[2018-07-24] MEDS: NICOTINE 14MG/24HR PATCH TRANSDERM SCH (08:00)
[2018-07-24] MEDS: PIPERACILLIN-TAZOBACTAM 3.375 GM in SODIUM CHLORIDE 0.9% 100 ML IVPB SCH (08:01)
[2018-07-24] MEDS: FAMOTIDINE 20 MG TAB PO SCH ×2 (08:01→21:19)
[2018-07-24] MEDS: MELOXICAM 7.5 MG TAB PO SCH (08:01)
[2018-07-24] MEDS: PHENAZOPYRIDINE 100 MG TAB PO SCH (08:01)
[2018-07-24] MEDS ORDERED: DEXAMETHASONE SOD PHOSPHATE 10 MG/ML 1 ML VIAL IV ONE (08:44)
[2018-07-24] MEDS ORDERED: ONDANSETRON 4 MG/2 ML VIAL IVP ONE (08:44)
--- NOTE | 2018-07-24 09:57 | P.PN ---
Subjective Progress Note Date: 07/24/18 This is a 72-year-old female patient who presented for an elective exploratory lap, lower anterior resection, takedown of splenic flexure and repair small incisional hernia with Dr. Washington. Patient is postop day 1. Patient has a known past medical history of diverticulitis with frequent flareups. Additional medical history includes breast cancer in 2004 with radiation and chemo, Osteoarthritis, Hypothyroidism and nicotine dependence. Patient currently has epidural in place. At this time pain is adequately controlled. Patient is on clear liquid diet. Patient denies any gas or bowel movements at this time. Midline dressing noted to have bloody drainage. Abdominal binder in place. This time patient denies chest pain or shortness of breath. Patient denies nausea vomiting or diarrhea. Patient denies any urinary burning or frequency. Nicotine patch will be ordered On 07/19/2018 patient currently postop day 2. patient is currently sitting up in chair eating clear liquid diet. Per patient she is passing gas. Patient currently states her shortness of breath is improved with breathing treatments. Vision started on Zithromax and Rocephin for antibiotics for possible pneumonia and UTI. Encouraged patient to continue walking and incentive spirometer use. On 07/20/2018 patient is currently postop day 2. Patient is currently sitting up in bed. Patient remains on clear liquid diet. Dr. Gomez has been consulted for pneumonia and urinary tract infection. patient remains on IV Rocephin and oral Zithromax. Patient does state some improvement with shortness of breath. This time patient denies chest pain or shortness breath patient denies nausea vomiting or diarrhea. Patient denies any urinary burning or frequency. On 07/21/2018 patient is currently postop day 3. Patient is currently sitting up in bed. Patient remains on clear liquid diet. Patient is still complaining of abdominal pain. Will order wound cultures at this time. Infectious disease is following. Patient is still having productive cough. Pulmonary services following. Denies chest pain or shortness breath. Patient denies nausea vomiting or diarrhea. Patient denies any urinary burning or frequency. Patient has not had bowel movement yet On 07/22/2018 patient is currently postop day 4. Patient is currently lying in bed. Patient has been advanced to a soft diet. Patient reports she had bowel movement last night. Patient is still complaining of significant abdominal pain. Wound cultures have been ordered. ID following. At this time patient states shortness of breath is improving. Patient denies chest pain. Patient denies any nausea or vomiting. Patient denies any urinary burning or frequency On 07/23/2018 patient is currently postop day 5. Patient is currently lying in bed. Patient has been tolerating diet. Patient did have a bowel movement yesterday. Patient is complaining of burning with urination. Patient is on Rocephin and Zithromax. Urine culture currently showing no growth. Infectious disease following. This time patient states shortness of breath is improving. Patient denies nausea vomiting or diarrhea. Patient denies chest pain. On 07/24/2018 patient is currently resting in bed. Discussed case with surgical service infectious planning to go back to the OR today with Dr. Washington for Dehiscence of abdominal wound. Patient remains on Zosyn for IV antibiotics. At this time patient states shortness of breath improved. Patient denies nausea vomiting or diarrhea. Patient denies urinary burning or frequency Objective - Vital Signs Vital signs: Vital Signs Temp 98.2 F 07/24/18 07:00 Pulse 72 07/24/18 07:00 Resp 18 07/24/18 07:00 BP 167/81 07/24/18 07:00 Pulse Ox 97 07/24/18 07:00 Intake & Output 07/23/18 07/24/18 07/24/18 18:59 06:59 18:59 Intake Total 1150 Balance 1150 Intake: Intake, IV Titration 650 Amount Azithromycin 500 mg In 250 Sodium Chloride 0.9% 250 ml @ 250 mls/hr IVPB DAILY@1200 [facility] Rx#: [id number] D5-0.45% NaCl with KCl 350 20Meq/l 1,000 ml @ 75 mls /hr IV .[id number] [facility] Rx#: [id number] cefTRIAXone 1,000 mg In 50 Sodium Chloride 0.9% 50 ml @ 100 mls/hr IVPB Q24HR [facility] Rx#:[id number] Oral 500 Other: Voiding Method Toilet Toilet - Exam Head normocephalic Neck supple Lungs diminished bilaterally. Left lower lobe crackles to auscultation Heart regular rate and rhythm S1-S2, no rub or gallop Abdomen Acitvbe bowel sounds. Serousangous drainage to abdominal dressing Extremities no edema Neuro alert and orientated to 3 - Labs CBC & Chem 7: 07/23/18 09:07 07/23/18 09:07 Labs: Abnormal Lab Results - Last 24 Hours (Table) 07/23/18 07/23/18 Range/Units 09:07 09:07 RBC 3.52 L (3.80-5.40) m/uL Hgb 10.6 L (11.4-16.0) gm/dL Hct 33.5 L (34.0-46.0) % BUN 2 L (7-17) mg/dL Creatinine 0.49 L (0.52-1.04) mg/dL Total Protein 5.6 L (6.3-8.2) g/dL Albumin 2.8 L (3.5-5.0) g/dL Microbiology - Last 24 Hours (Table) 07/19/18 16:15 Blood Culture - Preliminary Blood No Growth after 96 hours 07/21/18 11:00 Anaerobic Culture - Preliminary Abdomen Assessment and Plan Assessment: 1. Status post exploratory lap, lower anterior resection, takedown of splenic flexure and repair a small incisional hernia with Dr. Washington. Patient is currently postop day . Patient has been advanced with soft regular diet. Wound culture currently going gram-negative bacilli. Infectious disease is following. Patient currently on Zosyn per infectious disease 2. History of diverticulitis 3. Nicotine dependence. Will order nicotine patch at this time. Patient educated greater than 3 minutes on smoking cessation 4. History of osteoarthritis 5. History of hypothyroidism. Synthroid resumed 6. History of breast cancer in 2004 with radiation and chemotherapy 7. Urinary tract infection. Patient started on Rocephin. Urine currently showing no growth. 8. pneumonia. Chest x-ray showing left lower infiltrate and small amount of free intraperitoneal air suspected. Per nursing staff Dr. Washington made aware of chest x-ray findings no new orders. Patient started on Zithromax and Rocephin IV antibiotics. Continue DuoNeb breathing treatment sputum culture ordered. Infectious disease following for pneumonia and UTI. Patient remains on IV Rocephin and oral azithromycin. Per pulmonary services doubt pneumonia. Continue aggressive pulmonary toileting and incentive spirometer. 9. wound Dehiscence. Discussed case with surgical services planning to return to work today with Dr. Washington. Patient currently on Zosyn and azithromycin for IV antibiotics DVT prophylaxis heparin. Incentive spirometer encouraged SCDs in place Thank you for this consultation we will continue to follow patient closely throughout stay I performed an examination of the patient and discussed their management with the Nurse Practitioner. I have reviewed the Nurse Practitioner's notes and agree with the documented findings and plan of care
[2018-07-24 09:59] LABS: Basophils % (A) 0 %; Eosinophils # (A) 0.2 k/uL (0-0.7); Eosinophils % (A) 3 %; HCT 34.5 % (34.0-46.0); HGB 11.1 gm/dL (11.4-16.0); Lymphocytes # (A) 1.4 k/uL (1.0-4.8); Lymphocytes % (A) 17 %; MCH 30.6 pg (25.0-35.0); MCV 95.3 fL (80.0-100.0); Mean Platelet Volume 6.9; Monocytes # (A) 0.7 k/uL (0-1.0); Monocytes % (A) 8 %; Neutrophils # (A) 5.8 k/uL (1.3-7.7); Neutrophils % (A) 69 %; Platelet Count 321 k/uL (150-450); RBC 3.62 m/uL (3.80-5.40); RDW 13.2 % (11.5-15.5); WBC 8.3 k/uL (3.8-10.6)
[2018-07-24 10:06] LABS: ALT 23 U/L (9-52); AST 25 U/L (14-36); Albumin 2.9 g/dL (3.5-5.0); Alkaline Phosphatase 61 U/L (38-126); Anion Gap 7 mmol/L; Blood Urea Nitrogen 4 mg/dL (7-17); Calcium 8.9 mg/dL (8.4-10.2); Carbon Dioxide 25 mmol/L (22-30); Chloride 103 mmol/L (98-107); Glucose 81 mg/dL (74-99); Sodium 135 mmol/L (137-145); Total Bilirubin 0.4 mg/dL (0.2-1.3); Total Protein 5.6 g/dL (6.3-8.2)
[2018-07-24 10:46] LABS: Potassium 4.2 mmol/L (3.5-5.1)
[2018-07-24] MEDS: AZITHROMYCIN 500 MG in SODIUM CHLORIDE 0.9% 250 ML IVPB SCH (13:10)
[2018-07-24] MEDS: ONDANSETRON 4 MG/2 ML VIAL IVP PRN (13:25)
[2018-07-24] MEDS ORDERED: IV FLUID CONTINUATION 1,000 ML IV ONE ×2 (14:49→14:50)
[2018-07-24] MEDS ORDERED: LACTATED RINGERS 1,000 ML IV ONE (15:27)
[2018-07-24] MEDS ORDERED: LIDOCAINE 1% INJ 10MG/ML (20 ML MDV) ONE (15:33)
[2018-07-24] MEDS ORDERED: fentaNYL (PF) 50 MCG/ML 2 ML AMP ONE (15:33)
[2018-07-24] MEDS ORDERED: MIDAZOLAM 2 MG/2 ML VIAL ONE (15:33)
[2018-07-24] MEDS ORDERED: PROPOFOL 10 MG/ML 20 ML VIAL IV ONE (15:33)
[2018-07-24] MEDS ORDERED: SUCCINYLCHOLINE CHLORIDE 100 MG/5 ML SYR IV ONE (15:33)
[2018-07-24] MEDS: MEROPENEM 1 GM in SODIUM CHLORIDE 0.9% 100 ML IVPB SCH ×2 (16:00→23:33)
--- NOTE | 2018-07-24 16:37 | P.OP ---
Date of Procedure: 07/24/18 Preoperative Diagnosis: Wound dehiscence Postoperative Diagnosis: Wound dehiscence Procedure(s) Performed: Repair of wound dehiscence Anesthesia: EMMA Surgeon: Rustam Washington Estimated Blood Loss (ml): 10 Pathology: none sent Condition: stable Disposition: PACU Description of Procedure: The patient's placed the operative table in the supine position. She received general anesthesia. Her qamar were removed near the umbilicus. There appeared to be a fascial dehiscence above the umbilicus. The remaining supraumbilical qamar removed. The fascia was examined there appeared to be evidence of a torn fascia creating a wound dehiscence. The wound was cultured. At this point the old suture was removed. A new looped #1 PDS sutures placed. The suture was started at the umbilicus. It was tied to the old suture. And then the fascia was closed with looped #1 PDS suture. The superior portion of the incision had the skin closed with qamar. The midportion was left open and packed with wet-to-dry Kerlix. Patient tolerated procedure well
[2018-07-24] MEDS: fentaNYL (PF) 50 MCG/ML 2 ML AMP IV PRN ×4 (16:51→17:14)
[2018-07-24] MEDS: HYDROmorphone 1 MG/ML 1 ML SYRINGE IVP ONE ×2 (17:25→17:53)
--- NOTE | 2018-07-24 18:08 | PN ---
PROGRESS NOTE DATE OF SERVICE: 07/24/2018. REASON FOR FOLLOWUP: Abdominal wound dehiscence with gram-negative infection. INTERVAL HISTORY: The patient's clinical course complicated with developing of a fever this morning. The patient has been complaining of more abdominal pain. Pain has been more of a dull aching pain 4-5 out of 10 and no radiation. Patient has felt nauseated but no vomiting. Denies any chest pain or shortness of breath. No cough. No diarrhea. No burning or frequency of urine. REVIEW OF SYSTEMS: Positive points have been mentioned in HPI. Rest of systems have been negative. Past medical and surgical history reviewed. No change. Medications reviewed. EXAMINATION: Blood pressure 121/60 with a pulse of 93. Temperature of 100 degrees Fahrenheit temporal. She is 93% on room air. General description is an elderly female lying in bed in no distress. HEENT examination: Pallor. No scleral icterus. Oral mucosa dry. Neck: Trachea central. No thyromegaly. Lungs unlabored breathing. Clear to auscultation anteriorly. Heart S1, S2. Regular rate and rhythm. ABDOMEN: Soft, mildly distended, slightly tender to touch. No guarding or rigidity. EXTREMITIES: No edema of the feet. Skin examination: No rash or mass palpable. NEUROLOGIC: The patient is awake, alert, oriented times three. Mood and affect normal. LABS: Hemoglobin 11.1, white count 8.3 with a BUN of 4, creatinine 0.46. UA has been negative. The abdominal culture had been finalized with ESBL E coli. DIAGNOSTIC IMPRESSION AND PLAN: Patient with new fever in a patient now with abdominal wound dehiscence with secondary infection. Culture has been positive for ESBL E coli. Blood culture has been repeat requested. We will also request obtaining deep aerobic and anaerobic cultures at the time of surgery. We will discontinue the Zosyn and start the patient on meropenem 1 g q.8 hours and monitor clinical course very closely. Continue supportive care. MMODL / IJN: [id number] /
[2018-07-25] MEDS: HYDROmorphone 1 MG/ML 1 ML SYRINGE IVP PRN ×5 (01:45→23:28)
[2018-07-25] MEDS: guaiFENesin 600 MG TABLET.ER PO PRN (01:54)
[2018-07-25] MEDS: D5-0.45% NACL WITH KCL 20MEQ/L 1,000 ML IV SCH (03:57)
[2018-07-25] MEDS: LACTATED RINGERS 1,000 ML IV SCH (03:57)
[2018-07-25] MEDS: HEPARIN SODIUM,PORCINE 5,000 UNIT/ML 1 ML VIAL SQ SCH ×3 (05:46→23:27)
[2018-07-25] MEDS: LEVOTHYROXINE 112 MCG TAB PO SCH (05:46)
[2018-07-25] MEDS: IPRATROPIUM-ALBUTEROL 3 ML NEB INHALATION SCH ×4 (07:13→19:22)
[2018-07-25 07:19] LABS: Basophils % (A) 0 %; Eosinophils % (A) 0 %; HGB 11.5 gm/dL (11.4-16.0); Hypochromasia Slight; Lymphocytes # (A) 1.2 k/uL (1.0-4.8); Lymphocytes % (A) 11 %; MCH 30.4 pg (25.0-35.0); MCHC 31.2 g/dL (31.0-37.0); MCV 97.4 fL (80.0-100.0); Mean Platelet Volume 6.8; Monocytes # (A) 0.7 k/uL (0-1.0); Monocytes % (A) 7 %; Neutrophils # (A) 9.1 k/uL (1.3-7.7); Neutrophils % (A) 80 %; Platelet Count 412 k/uL (150-450); RDW 13.2 % (11.5-15.5); WBC 11.3 k/uL (3.8-10.6)
[2018-07-25 07:49] LABS: ALT 24 U/L (9-52); AST 30 U/L (14-36); Albumin 3.1 g/dL (3.5-5.0); Alkaline Phosphatase 66 U/L (38-126); Anion Gap 13 mmol/L; Blood Urea Nitrogen 8 mg/dL (7-17); Calcium 9.2 mg/dL (8.4-10.2); Carbon Dioxide 20 mmol/L (22-30); Chloride 104 mmol/L (98-107); Glucose 71 mg/dL (74-99); Potassium 4.4 mmol/L (3.5-5.1); Sodium 137 mmol/L (137-145); Total Bilirubin 0.6 mg/dL (0.2-1.3)
[2018-07-25] MEDS: MEROPENEM 1 GM in SODIUM CHLORIDE 0.9% 100 ML IVPB SCH ×3 (08:04→23:27)
[2018-07-25] MEDS: FAMOTIDINE 20 MG TAB PO SCH ×2 (08:06→23:27)
[2018-07-25] MEDS: PHENAZOPYRIDINE 100 MG TAB PO SCH (08:06)
[2018-07-25] MEDS: MELOXICAM 7.5 MG TAB PO SCH (08:06)
[2018-07-25] MEDS: NICOTINE 14MG/24HR PATCH TRANSDERM SCH (08:44)
--- NOTE | 2018-07-25 10:13 | P.PN ---
Subjective Progress Note Date: 07/25/18 This is a 72-year-old female patient who presented for an elective exploratory lap, lower anterior resection, takedown of splenic flexure and repair small incisional hernia with Dr. Washington. Patient is postop day 1. Patient has a known past medical history of diverticulitis with frequent flareups. Additional medical history includes breast cancer in 2004 with radiation and chemo, Osteoarthritis, Hypothyroidism and nicotine dependence. Patient currently has epidural in place. At this time pain is adequately controlled. Patient is on clear liquid diet. Patient denies any gas or bowel movements at this time. Midline dressing noted to have bloody drainage. Abdominal binder in place. This time patient denies chest pain or shortness of breath. Patient denies nausea vomiting or diarrhea. Patient denies any urinary burning or frequency. Nicotine patch will be ordered On 07/19/2018 patient currently postop day 2. patient is currently sitting up in chair eating clear liquid diet. Per patient she is passing gas. Patient currently states her shortness of breath is improved with breathing treatments. [facility] started on Zithromax and Rocephin for antibiotics for possible pneumonia and UTI. Encouraged patient to continue walking and incentive spirometer use. On 07/20/2018 patient is currently postop day 2. Patient is currently sitting up in bed. Patient remains on clear liquid diet. Dr. Gomez has been consulted for pneumonia and urinary tract infection. patient remains on IV Rocephin and oral Zithromax. Patient does state some improvement with shortness of breath. This time patient denies chest pain or shortness breath patient denies nausea vomiting or diarrhea. Patient denies any urinary burning or frequency. On 07/21/2018 patient is currently postop day 3. Patient is currently sitting up in bed. Patient remains on clear liquid diet. Patient is still complaining of abdominal pain. Will order wound cultures at this time. Infectious disease is following. Patient is still having productive cough. Pulmonary services following. Denies chest pain or shortness breath. Patient denies nausea vomiting or diarrhea. Patient denies any urinary burning or frequency. Patient has not had bowel movement yet On 07/22/2018 patient is currently postop day 4. Patient is currently lying in bed. Patient has been advanced to a soft diet. Patient reports she had bowel movement last night. Patient is still complaining of significant abdominal pain. Wound cultures have been ordered. ID following. At this time patient states shortness of breath is improving. Patient denies chest pain. Patient denies any nausea or vomiting. Patient denies any urinary burning or frequency On 07/23/2018 patient is currently postop day 5. Patient is currently lying in bed. Patient has been tolerating diet. Patient did have a bowel movement yesterday. Patient is complaining of burning with urination. Patient is on Rocephin and Zithromax. Urine culture currently showing no growth. Infectious disease following. This time patient states shortness of breath is improving. Patient denies nausea vomiting or diarrhea. Patient denies chest pain. On 07/24/2018 patient is currently resting in bed. Discussed case with surgical service infectious planning to go back to the OR today with Dr. Washington for Dehiscence of abdominal wound. Patient remains on Zosyn for IV antibiotics. At this time patient states shortness of breath improved. Patient denies nausea vomiting or diarrhea. Patient denies urinary burning or frequency On 07/25/2018 patient is currently resting comfortably in bed. Patient is status post repair of wound dehiscece with Dr. Washington on 07/24/2018. Abdomen wound currently growing E. coli. Patient also having low-grade temps. Infectious disease is following. Antibiotics have been changed to meropenem and cultures have been ordered. At this time patient is complaining of some abdominal discomfort. Patient denies nausea vomiting or diarrhea. Patient denies any urinary burning or frequency. Denies chest pain or shortness of breath. Objective - Vital Signs Vital signs: Vital Signs Temp 98.0 F 07/25/18 07:00 Pulse 88 07/25/18 07:25 Resp 18 07/25/18 07:00 BP 128/73 07/25/18 07:00 Pulse Ox 99 07/25/18 07:00 Intake & Output 07/24/18 07/25/18 07/25/18 18:59 06:59 18:59 Intake Total 1003 260 100 Output Total 30 Balance 973 260 100 Intake: IV 653 Intake, IV Titration 350 260 100 Amount Azithromycin 500 mg In 250 Sodium Chloride 0.9% 250 ml @ 250 mls/hr IVPB DAILY@1200 [facility] Rx#: [id number] Lactated Ringers 1,000 ml 260 @ 20 mls/hr IV .Q24H [facility] Rx#:[id number] Meropenem 1 gm In Sodium 100 Chloride 0.9% 100 ml @ 200 mls/hr IVPB Q8HR [facility] Rx#:[id number] Piperacillin-Tazobactam 3 100 .375 gm In Sodium Chloride 0.9% 100 ml @ 25 mls/hr IVPB Q8HR [facility] Rx# :[id number] Output: Estimated Blood Loss 30 Other: Voiding Method Toilet Toilet Bedside Commode Bedpan # Voids 4 1 - Exam Head normocephalic Neck supple Lungs diminished bilaterally. Left lower lobe crackles to auscultation Heart regular rate and rhythm S1-S2, no rub or gallop Abdomen Acitvbe bowel sounds. Abdominal dressing is clean dry and intact. Abdominal binder is in place Extremities no edema Neuro alert and orientated to 3 - Labs CBC & Chem 7: 07/25/18 06:51 07/25/18 06:51 Labs: Abnormal Lab Results - Last 24 Hours (Table) 07/24/18 07/24/18 07/25/18 Range/Units 09:07 09:07 06:51 WBC 11.3 H (3.8-10.6) k/uL RBC 3.62 L (3.80-5.40) m/uL Hgb 11.1 L (11.4-16.0) gm/dL Neutrophils # 9.1 H (1.3-7.7) k/uL Sodium 135 L (137-145) mmol/L Carbon Dioxide (22-30) mmol/L BUN 4 L (7-17) mg/dL Creatinine 0.46 L (0.52-1.04) mg/dL Glucose (74-99) mg/dL Total Protein 5.6 L (6.3-8.2) g/dL Albumin 2.9 L (3.5-5.0) g/dL 07/25/18 Range/Units 06:51 WBC (3.8-10.6) k/uL RBC (3.80-5.40) m/uL Hgb (11.4-16.0) gm/dL Neutrophils # (1.3-7.7) k/uL Sodium (137-145) mmol/L Carbon Dioxide 20 L (22-30) mmol/L BUN (7-17) mg/dL Creatinine 0.51 L (0.52-1.04) mg/dL Glucose 71 L (74-99) mg/dL Total Protein 6.0 L (6.3-8.2) g/dL Albumin 3.1 L (3.5-5.0) g/dL Microbiology - Last 24 Hours (Table) 07/21/18 11:00 Anaerobic Culture - Final Abdomen 07/21/18 11:00 Gram Stain - Final Abdomen Wound Culture - Final Escherichia coli 07/24/18 16:24 Gram Stain - Preliminary Abdomen Wound Culture - Preliminary 07/24/18 16:24 Anaerobic Culture - Preliminary Abdomen 07/19/18 16:15 Blood Culture - Preliminary Blood No Growth after 120 hours Assessment and Plan Assessment: 1. Status post exploratory lap, lower anterior resection, takedown of splenic flexure and repair a small incisional hernia with Dr. Washington. Wound culture currently going gram-negative bacilli. Infectious disease is following. Patient currently on Merropenem per infectious disease. Abdomen wound culture currently growing E. coli. Infectious disease following. New wound cultures have been ordered. Patient currently on meropenem for her IV antibiotic. Patient also having low-grade temps 2. History of diverticulitis 3. Nicotine dependence. Will order nicotine patch at this time. Patient educated greater than 3 minutes on smoking cessation 4. History of osteoarthritis 5. History of hypothyroidism. Synthroid resumed 6. History of breast cancer in 2004 with radiation and chemotherapy 7. Urinary tract infection. Patient started on Rocephin. Urine currently showing no growth. 8. pneumonia. Chest x-ray showing left lower infiltrate and small amount of free intraperitoneal air suspected. Per nursing staff Dr. Washington made aware of chest x-ray findings no new orders. Patient started on Zithromax and Rocephin IV antibiotics. Continue DuoNeb breathing treatment sputum culture ordered. Infectious disease following for pneumonia and UTI. Patient remains on IV Rocephin and oral azithromycin. Per pulmonary services doubt pneumonia. Continue aggressive pulmonary toileting and incentive spirometer. 9. wound Dehiscence. Patient is currently status post repair of wound dehiscence with Dr. Washington. Patient is currently postop day 1. Patient currently clear liquid diet DVT prophylaxis heparin. Incentive spirometer encouraged SCDs in place Thank you for this consultation we will continue to follow patient closely throughout stay I performed an examination of the patient and discussed their management with the Nurse Practitioner. I have reviewed the Nurse Practitioner's notes and agree with the documented findings and plan of care
[2018-07-25] MEDS: DEXTROSE 5%-0.45% NACL 1,000 ML IV SCH (11:16)
[2018-07-25] MEDS: AZITHROMYCIN 500 MG in SODIUM CHLORIDE 0.9% 250 ML IVPB SCH (11:16)
--- NOTE | 2018-07-25 11:22 | XR ---
EXAMINATION TYPE: XR chest 1V portable DATE OF EXAM: 07/25/2018 COMPARISON: 07/19/2018 INDICATION: Increased congestion TECHNIQUE: Single frontal view of the chest is obtained. FINDINGS: The heart size is upper limits of normal. The pulmonary vasculature is normal. Mild infiltrate at the left base may be present. There is poor visualization of the left diaphragm co stophrenic angle. Lungs are otherwise clear. Scoliosis is present with convexity to the right. Postsurgical changes are in the right axillary kellie on. Vascular calcifications at the aortic arch. IMPRESSION: 1. Clinical correlation recommended for left basilar infiltrate and/or small effusion.
[2018-07-25] MEDS: ONDANSETRON 4 MG/2 ML VIAL IVP PRN (12:23)
--- NOTE | 2018-07-25 13:23 | P.PN ---
Subjective Progress Note Date: 07/25/18 73-year-old female seen in follow-up postop resting comfortably in bed. Postop repair of the wound dehiscece on July 24. Wound culture growing E. coli. Infectious disease following. Antibiotics per infectious disease patient reports no nausea no vomiting no frequent stool currently denying any shortness of breath chest pain or dizziness note the white count 11.3 temp is 98 postop July exploratory laparotomy, low anterior resection, takedown of splenic flexure, repair of small incisional hernia for diverticulitis Objective - Vital Signs Vital signs: Vital Signs Temp 98.0 F 07/25/18 07:00 Pulse 88 07/25/18 11:29 Resp 18 07/25/18 07:00 BP 128/73 07/25/18 07:00 Pulse Ox 99 07/25/18 07:00 Intake & Output 07/24/18 07/25/18 07/25/18 18:59 06:59 18:59 Intake Total 1003 260 350 Output Total 30 Balance 973 260 350 Intake: IV 653 Intake, IV Titration 350 260 350 Amount Azithromycin 500 mg In 250 250 Sodium Chloride 0.9% 250 ml @ 250 mls/hr IVPB DAILY@1200 [facility] Rx#: [id number] Lactated Ringers 1,000 ml 260 @ 20 mls/hr IV .Q24H [facility] Rx#:[id number] Meropenem 1 gm In Sodium 100 Chloride 0.9% 100 ml @ 200 mls/hr IVPB Q8HR [facility] Rx#:[id number] Piperacillin-Tazobactam 3 100 .375 gm In Sodium Chloride 0.9% 100 ml @ 25 mls/hr IVPB Q8HR [facility] Rx# :[id number] Output: Estimated Blood Loss 30 Other: Voiding Method Toilet Toilet Bedside Commode Bedpan # Voids 4 1 - Exam Physical exam Abdominal binder in place.Wet-to-dry Kerlix packing in place with ABD dressing dry reports no nausea vomiting urinating no difficulty no stool few hypoactive bowel - Labs CBC & Chem 7: 07/25/18 06:51 07/25/18 06:51 Labs: Abnormal Lab Results - Last 24 Hours (Table) 07/25/18 07/25/18 Range/Units 06:51 06:51 WBC 11.3 H (3.8-10.6) k/uL Neutrophils # 9.1 H (1.3-7.7) k/uL Carbon Dioxide 20 L (22-30) mmol/L Creatinine 0.51 L (0.52-1.04) mg/dL Glucose 71 L (74-99) mg/dL Total Protein 6.0 L (6.3-8.2) g/dL Albumin 3.1 L (3.5-5.0) g/dL Microbiology - Last 24 Hours (Table) 07/21/18 11:00 Anaerobic Culture - Final Abdomen 07/21/18 11:00 Gram Stain - Final Abdomen Wound Culture - Final Escherichia coli 07/24/18 16:24 Gram Stain - Preliminary Abdomen Wound Culture - Preliminary 07/24/18 16:24 Anaerobic Culture - Preliminary Abdomen 07/19/18 16:15 Blood Culture - Preliminary Blood No Growth after 120 hours Assessment and Plan Assessment: Impression Present on admission small incisional hernia Status post July 17 exploratory laparotomy, low anterior resection, takedown of splenic flexure, repair of small incisional hernia for diverticulitis Chronic left lower quadrant abdominal pain suspect due to diverticulitis History of breast cancer 2004 received chemotherapy and radiation Current every day smoker Chest x-ray obtained July 19 report indicates left lower lobe infiltrate Present on admission UTI 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 Lori Ortez nurse practitioner acting as scribe for signing physician.
[2018-07-25] MEDS ORDERED: MVI, ADULT NO.4 WITH VIT K 10 ML, TRACE (CONC-1ML/DOSE) 1 ML in AMINO ACID 4.25%-D10W+L... IV ONE ×3 (16:00)
[2018-07-25] MEDS: FAT EMULSION 20% 250 ML IV SCH (16:57)
--- NOTE | 2018-07-25 22:54 | PN ---
PROGRESS NOTE DATE OF SERVICE: 07/25/2018. REASON FOR FOLLOWUP: Abdominal wound dehiscences, question of secondary infection with ESBL E. coli. INTERVAL HISTORY: The patient is afebrile. She is breathing comfortably. Denies having any chest pain or shortness of breath. Abdominal pain is currently controlled with pain medication. No nausea, vomiting or diarrhea. EXAMINATION: Vital signs are stable. GENERAL DESCRIPTION: An elderly female lying in bed in no distress. RESPIRATORY SYSTEM: Unlabored breathing. Clear to auscultation anteriorly. HEART: S1, S2. Regular rate and rhythm. ABDOMEN: Soft, no distention. No guarding or rigidity. EXTREMITIES: No edema of the feet. LABS: Cultures currently pending. The initial cultures grew ESBL E coli. DIAGNOSTIC IMPRESSION AND PLAN: Patient with abdominal wound dehiscence. The patient was admitted to the hospital for AP resection for recurrent diverticulitis, now with abdominal wound dehiscence, superficial culture positive for ESBL E coli. Waiting for the oral culture to finalize. Keep the patient on meropenem at this point. She will get a PICC line for both for nutrition as well as IV antibiotic therapy. Continue supportive care. MMODL / IJN: [id number] /
[2018-07-26] MEDS: HYDROmorphone 1 MG/ML 1 ML SYRINGE IVP PRN ×4 (05:02→19:31)
[2018-07-26] MEDS: LEVOTHYROXINE 112 MCG TAB PO SCH (05:02)
[2018-07-26] MEDS: HEPARIN SODIUM,PORCINE 5,000 UNIT/ML 1 ML VIAL SQ SCH ×3 (05:02→19:31)
[2018-07-26] MEDS: guaiFENesin 600 MG TABLET.ER PO PRN (05:02)
[2018-07-26 07:46] LABS: Basophils % (A) 0 %; Eosinophils # (A) 0.2 k/uL (0-0.7); Eosinophils % (A) 2 %; HCT 32.7 % (34.0-46.0); HGB 10.8 gm/dL (11.4-16.0); Hypochromasia Slight; Lymphocytes # (A) 1.3 k/uL (1.0-4.8); Lymphocytes % (A) 13 %; MCH 31.3 pg (25.0-35.0); MCV 94.9 fL (80.0-100.0); Mean Platelet Volume 6.7; Monocytes # (A) 0.5 k/uL (0-1.0); Monocytes % (A) 5 %; Neutrophils % (A) 79 %; Platelet Count 386 k/uL (150-450); RBC 3.44 m/uL (3.80-5.40); WBC 10.2 k/uL (3.8-10.6)
[2018-07-26 07:56] LABS: ALT 24 U/L (9-52); AST 23 U/L (14-36); Albumin 2.6 g/dL (3.5-5.0); Alkaline Phosphatase 61 U/L (38-126); Anion Gap 6 mmol/L; Blood Urea Nitrogen 10 mg/dL (7-17); Calcium 8.6 mg/dL (8.4-10.2); Carbon Dioxide 28 mmol/L (22-30); Chloride 103 mmol/L (98-107); Glucose 134 mg/dL (74-99); Ionized Calcium 4.9 mg/dL (4.5-5.3); Magnesium 2.1 mg/dL (1.6-2.3); Phosphorus 2.1 mg/dL (2.5-4.5); Sodium 137 mmol/L (137-145); Total Bilirubin 0.2 mg/dL (0.2-1.3); Total Protein 5.4 g/dL (6.3-8.2); Triglycerides 121 mg/dL (<150)
--- NOTE | 2018-07-26 08:22 | IR ---
EXAMINATION TYPE: IR cvc insert >=5 years DATE OF EXAM: 07/25/2018 COMPARISON: NONE CLINICAL HISTORY: Infection Needs long-term intravenous access for antibiotics and total parenteral n utrition. PROCEDURE: After informed consent, the skin overlying the left basilic vein was localized with ultrasound and no maxine to be compressible and patent. An ultrasound image was obtained and submitted on the patient's c garbiel. The overlying skin was prepped and draped and Lidocaine was used for local anesthesia. A skin qiana was made with a scalpel. Access was gained to the vein under ultrasound guidance with a 21 gau ge needle and a 0.018 inch wire was advanced. Access site was dilated with Peel-Away sheath and cath eter tailored to the appropriate length and advanced such that the distal tip is at the cavoatrial ju nction. Spot image was obtained verifying placement. Catheter was fixed to the skin and a sterile d ressing was placed following hemostasis. Catheter was aspirated and flushed with saline. Patient wa s discharged in stable condition without complication. Maximal barrier technique is utilized. Ultras ound image is documented on the chart. Ultrasound used with sterile technique. Fluoro time and fluoroscopic images submitted to document procedure: 517 intraoperative images, 0.7 m inutes fluoroscopy time IMPRESSION: STATUS POST ULTRASOUND AND FLUOROSCOPIC GUIDED PICC LINE PLACEMENT, READY FOR USE. THIS PROCEDURE WAS PERFORMED BY THE UNDERSIGNED.
[2018-07-26] MEDS ORDERED: SODIUM GLYCEROPHOSPHATE 10 MMOL in SODIUM CHLORIDE 0.9% 250 ML IV ONE (08:45)
[2018-07-26] MEDS: IPRATROPIUM-ALBUTEROL 3 ML NEB INHALATION SCH ×4 (09:31→20:41)
[2018-07-26] MEDS: NICOTINE 14MG/24HR PATCH TRANSDERM SCH (09:41)
[2018-07-26] MEDS: MELOXICAM 7.5 MG TAB PO SCH (09:41)
[2018-07-26] MEDS: FAMOTIDINE 20 MG TAB PO SCH ×2 (09:41→20:42)
[2018-07-26] MEDS: MEROPENEM 1 GM in SODIUM CHLORIDE 0.9% 100 ML IVPB SCH ×2 (09:42→17:24)
--- NOTE | 2018-07-26 10:55 | P.PN ---
Subjective Progress Note Date: 07/26/18 This is a 72-year-old female patient who presented for an elective exploratory lap, lower anterior resection, takedown of splenic flexure and repair small incisional hernia with Dr. Washington. Patient is postop day 1. Patient has a known past medical history of diverticulitis with frequent flareups. Additional medical history includes breast cancer in 2004 with radiation and chemo, Osteoarthritis, Hypothyroidism and nicotine dependence. Patient currently has epidural in place. At this time pain is adequately controlled. Patient is on clear liquid diet. Patient denies any gas or bowel movements at this time. Midline dressing noted to have bloody drainage. Abdominal binder in place. This time patient denies chest pain or shortness of breath. Patient denies nausea vomiting or diarrhea. Patient denies any urinary burning or frequency. Nicotine patch will be ordered On 07/19/2018 patient currently postop day 2. patient is currently sitting up in chair eating clear liquid diet. Per patient she is passing gas. Patient currently states her shortness of breath is improved with breathing treatments. Vision started on Zithromax and Rocephin for antibiotics for possible pneumonia and UTI. Encouraged patient to continue walking and incentive spirometer use. On 07/20/2018 patient is currently postop day 2. Patient is currently sitting up in bed. Patient remains on clear liquid diet. Dr. Gomez has been consulted for pneumonia and urinary tract infection. patient remains on IV Rocephin and oral Zithromax. Patient does state some improvement with shortness of breath. This time patient denies chest pain or shortness breath patient denies nausea vomiting or diarrhea. Patient denies any urinary burning or frequency. On 07/21/2018 patient is currently postop day 3. Patient is currently sitting up in bed. Patient remains on clear liquid diet. Patient is still complaining of abdominal pain. Will order wound cultures at this time. Infectious disease is following. Patient is still having productive cough. Pulmonary services following. Denies chest pain or shortness breath. Patient denies nausea vomiting or diarrhea. Patient denies any urinary burning or frequency. Patient has not had bowel movement yet On 07/22/2018 patient is currently postop day 4. Patient is currently lying in bed. Patient has been advanced to a soft diet. Patient reports she had bowel movement last night. Patient is still complaining of significant abdominal pain. Wound cultures have been ordered. ID following. At this time patient states shortness of breath is improving. Patient denies chest pain. Patient denies any nausea or vomiting. Patient denies any urinary burning or frequency On 07/23/2018 patient is currently postop day 5. Patient is currently lying in bed. Patient has been tolerating diet. Patient did have a bowel movement yesterday. Patient is complaining of burning with urination. Patient is on Rocephin and Zithromax. Urine culture currently showing no growth. Infectious disease following. This time patient states shortness of breath is improving. Patient denies nausea vomiting or diarrhea. Patient denies chest pain. On 07/24/2018 patient is currently resting in bed. Discussed case with surgical service infectious planning to go back to the OR today with Dr. Washington for Dehiscence of abdominal wound. Patient remains on Zosyn for IV antibiotics. At this time patient states shortness of breath improved. Patient denies nausea vomiting or diarrhea. Patient denies urinary burning or frequency On 07/25/2018 patient is currently resting comfortably in bed. Patient is status post repair of wound dehiscece with Dr. Washington on 07/24/2018. Abdomen wound currently growing E. coli. Patient also having low-grade temps. Infectious disease is following. Antibiotics have been changed to meropenem and cultures have been ordered. At this time patient is complaining of some abdominal discomfort. Patient denies nausea vomiting or diarrhea. Patient denies any urinary burning or frequency. Denies chest pain or shortness of breath. On 07/26/2018 patient is currently resting in bed getting a breathing treatment. Patient is currently postop day 2 from post repair of wound dehiscence on 07/24/2018. Patient currently is PICC line in place remains on meropenem per infectious disease patient does state abdominal pain starting to subside. Patient denies chest pain or shortness breath. Patient denies nausea vomiting or diarrhea. Patient denies any urinary burning or frequency Objective - Vital Signs Vital signs: Vital Signs Temp 99.1 F 07/26/18 07:00 Pulse 88 07/26/18 09:49 Resp 16 07/26/18 07:00 BP 137/72 07/26/18 07:00 Pulse Ox 95 07/26/18 07:00 Intake & Output 12/13/18 12/14/18 12/14/18 18:59 06:59 18:59 Intake Total 450 1020 Output Total 350 Balance 100 1020 Weight 59.874 kg Intake: Intake, IV Titration 450 1020 Amount Azithromycin 500 mg In 250 Sodium Chloride 0.9% 250 ml @ 250 mls/hr IVPB DAILY@1200 [facility] Rx#: [id number] Dextrose 5%-0.45% NaCl 1, 150 000 ml @ 50 mls/hr IV . Q20H [facility] Rx#:[id number] Fat Emulsion 20% 250 ml @ 220 20.833 mls/hr IV DAILY@ 1600 [facility] Rx#:[id number] Meropenem 1 gm In Sodium 200 100 Chloride 0.9% 100 ml @ 200 mls/hr IVPB Q8HR [facility] Rx#:[id number] Mvi, Adult No.4 with Vit 550 K 10 ml Trace (Conc-1Ml/ Dose) 1 ml In Amino Acid 4.25%-D10w+Lytes*E* 1,000 ml @ 50 mls/hr IV . [id number] [facility] Rx#:[id number] Output: Urine 350 Other: Voiding Method Bedside Commode Bedside Commode # Voids 1 3 # Bowel Movements 1 - Exam Head normocephalic Neck supple Lungs diminished bilaterally. Left lower lobe crackles to auscultation Heart regular rate and rhythm S1-S2, no rub or gallop Abdomen Acitvbe bowel sounds. Abdominal dressing is clean dry and intact. Abdominal binder is in place Extremities no edema Neuro alert and orientated to 3 - Labs CBC & Chem 7: 07/26/18 07:01 07/26/18 07:01 Labs: Abnormal Lab Results - Last 24 Hours (Table) 07/26/18 07/26/18 Range/Units 07:01 07:01 RBC 3.44 L (3.80-5.40) m/uL Hgb 10.8 L (11.4-16.0) gm/dL Hct 32.7 L (34.0-46.0) % Neutrophils # 8.0 H (1.3-7.7) k/uL Creatinine 0.41 L (0.52-1.04) mg/dL Glucose 134 H (74-99) mg/dL Phosphorus 2.1 L (2.5-4.5) mg/dL Total Protein 5.4 L (6.3-8.2) g/dL Albumin 2.6 L (3.5-5.0) g/dL Microbiology - Last 24 Hours (Table) 07/24/18 16:24 Gram Stain - Preliminary Abdomen Wound Culture - Preliminary Gram Neg Bacilli 07/19/18 16:15 Blood Culture - Final Blood No Growth after 144 hours 07/24/18 12:35 Blood Culture - Preliminary Blood No Growth after 24 hours 07/21/18 11:00 Anaerobic Culture - Final Abdomen 07/21/18 11:00 Gram Stain - Final Abdomen Wound Culture - Final Escherichia coli Assessment and Plan Assessment: 1. Status post exploratory lap, lower anterior resection, takedown of splenic flexure and repair a small incisional hernia with Dr. Washington. Wound culture currently going gram-negative bacilli. Infectious disease is following. Patient currently on Merropenem per infectious disease. Abdomen wound culture currently growing E. coli. Infectious disease following. New wound cultures have been ordered. Patient currently on meropenem for her IV antibiotic. Patient also having low-grade temps 2. History of diverticulitis 3. Nicotine dependence. Will order nicotine patch at this time. Patient educated greater than 3 minutes on smoking cessation 4. History of osteoarthritis 5. History of hypothyroidism. Synthroid resumed 6. History of breast cancer in 2004 with radiation and chemotherapy 7. Urinary tract infection. Patient started on Rocephin. Urine currently showing no growth. 8. pneumonia. Chest x-ray showing left lower infiltrate and small amount of free intraperitoneal air suspected. Per nursing staff Dr. Washington made aware of chest x-ray findings no new orders. Patient started on Zithromax and Rocephin IV antibiotics. Continue DuoNeb breathing treatment sputum culture ordered. Infectious disease following for pneumonia and UTI. Patient remains on IV Rocephin and oral azithromycin. Per pulmonary services doubt pneumonia. Continue aggressive pulmonary toileting and incentive spirometer. Chest x-ray completed showing clinical correlation recommended for left basilar infiltrate and/or small effusion 9. wound Dehiscence. Patient is currently status post repair of wound dehiscence with Dr. Washington. Patient is currently postop day 2. Patient currently clear liquid diet. PICC line placed per ID patient currently on IV nutrition and IV meropenem per infectious disease DVT prophylaxis heparin. Incentive spirometer encouraged SCDs in place Thank you for this consultation we will continue to follow patient closely throughout stay I performed an examination of the patient and discussed their management with the Nurse Practitioner. I have reviewed the Nurse Practitioner's notes and agree with the documented findings and plan of care
[2018-07-26] MEDS ORDERED: AZITHROMYCIN 500 MG TAB PO SCH (12:00)
[2018-07-26] MEDS: 1: MVI, ADULT NO.4 WITH VIT K 10 ML, TRACE (CONC-1ML/DOSE) 1 ML in AMINO ACID 4.25%-D10W IV SCH ×6 (12:01→20:49)
[2018-07-26] MEDS: DEXTROSE 5%-0.45% NACL 1,000 ML IV SCH (12:03)
--- NOTE | 2018-07-26 12:14 | P.PN ---
Subjective Progress Note Date: 07/26/18 73-year-old female seen at the bedside. Patient states starting to feel better has been able to ambulate from the bed to the bathroom with little assistance. Surgical dressing dry surgical tenderness appropriate not distended. States is passing gas and had a bowel movement this morning PICC line in place per recommendations infectious disease for IV antibiotic therapy abdominal wound growing E. coli temp 99 point Objective - Vital Signs Vital signs: Vital Signs Temp 99.1 F 07/26/18 07:00 Pulse 88 07/26/18 09:49 Resp 16 07/26/18 07:00 BP 137/72 07/26/18 07:00 Pulse Ox 95 07/26/18 07:00 Intake & Output 07/25/18 07/26/18 07/26/18 18:59 06:59 18:59 Intake Total 450 1020 Output Total 350 Balance 100 1020 Weight 59.874 kg Intake: Intake, IV Titration 450 1020 Amount Azithromycin 500 mg In 250 Sodium Chloride 0.9% 250 ml @ 250 mls/hr IVPB DAILY@1200 [facility] Rx#: [id number] Dextrose 5%-0.45% NaCl 1, 150 000 ml @ 50 mls/hr IV . Q20H [facility] Rx#:[id number] Fat Emulsion 20% 250 ml @ 220 20.833 mls/hr IV DAILY@ 1600 [facility] Rx#:[id number] Meropenem 1 gm In Sodium 200 100 Chloride 0.9% 100 ml @ 200 mls/hr IVPB Q8HR [facility] Rx#:[id number] Mvi, Adult No.4 with Vit 550 K 10 ml Trace (Conc-1Ml/ Dose) 1 ml In Amino Acid 4.25%-D10w+Lytes*E* 1,000 ml @ 50 mls/hr IV . [id number] [facility] Rx#:[id number] Output: Urine 350 Other: Voiding Method Bedside Commode Bedside Commode # Voids 1 3 # Bowel Movements 1 - Exam Physical exam Abdominal binder in place. Surgical tenderness appropriate qamar in place suture line well approximated the site of the wound dehisced umbilical packing in place no drainage no odor fascial dehiscence above the umbilicus repaired on July 24 patient states that she did have a bowel movement this morning and is passing gas and is tolerating a clearly diet - Labs CBC & Chem 7: 07/26/18 07:01 07/26/18 07:01 Labs: Abnormal Lab Results - Last 24 Hours (Table) 07/26/18 07/26/18 Range/Units 07:01 07:01 RBC 3.44 L (3.80-5.40) m/uL Hgb 10.8 L (11.4-16.0) gm/dL Hct 32.7 L (34.0-46.0) % Neutrophils # 8.0 H (1.3-7.7) k/uL Creatinine 0.41 L (0.52-1.04) mg/dL Glucose 134 H (74-99) mg/dL Phosphorus 2.1 L (2.5-4.5) mg/dL Total Protein 5.4 L (6.3-8.2) g/dL Albumin 2.6 L (3.5-5.0) g/dL Microbiology - Last 24 Hours (Table) 07/24/18 16:24 Gram Stain - Preliminary Abdomen Wound Culture - Preliminary Gram Neg Bacilli 07/19/18 16:15 Blood Culture - Final Blood No Growth after 144 hours 07/24/18 12:35 Blood Culture - Preliminary Blood No Growth after 24 hours 07/21/18 11:00 Anaerobic Culture - Final Abdomen 07/21/18 11:00 Gram Stain - Final Abdomen Wound Culture - Final Escherichia coli Assessment and Plan Assessment: Impression Present on admission small incisional hernia Status post July 17 exploratory laparotomy, low anterior resection, takedown of splenic flexure, repair of small incisional hernia for diverticulitis Chronic left lower quadrant abdominal pain suspect due to diverticulitis History of breast cancer 2005 received chemotherapy and radiation Current every day smoker Chest x-ray obtained July 19 report indicates left lower lobe infiltrate Present on admission UTI 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 Lori Ortez nurse practitioner acting as scribe for signing physician.
[2018-07-26] MEDS: FAT EMULSION 20% 250 ML IV SCH (15:27)
--- NOTE | 2018-07-26 15:37 | PN ---
PROGRESS NOTE DATE OF SERVICE: 07/26/2018 REASON FOR FOLLOWUP: Abdominal wound culture, positive for ESBL E coli. INTERVAL HISTORY: The patient is currently afebrile. However, abdominal pain has decreased in intensity. The patient has been complaining of her IV in the left side of the neck. Denies having any chest pain or shortness of breath or cough. No nausea, vomiting, or any diarrhea. PHYSICAL EXAMINATION: Blood pressure 135/80 with a pulse of 81, temperature 98.9, she is 97% on room air. General description is an elderly female, lying in bed in no distress. RESPIRATORY SYSTEM: Unlabored breathing, clear to auscultation anteriorly. HEART S1, S2. Regular rate and rhythm. ABDOMEN: Soft, the midline open incision wound looks clean with no slough tissue, surrounding erythema or any foul-smelling drainage. LABS: Hemoglobin is 10.8, white count 10.2, BUN of 10, creatinine 0.41. The oral culture answer for any gram-negative bacilli. DIAGNOSTIC IMPRESSION AND PLAN: Patient with abdominal wound culture, positive for ESBL Escherichia coli. The patient did have abdominal wound dehiscence status post repair of the same and now with an open wound. The wound site looks clean. OR cultures are showing a gram-negative. Patient to continue with the meropenem. Will try to arrange for the wound VAC with black foam with continued pressure 125 mmHg to be changed Sunday, Sunday, Sunday. Continue supportive care. MMODL / IJN: [id number] /
--- NOTE | 2018-07-26 16:57 | P.PN ---
Subjective Progress Note Date: 07/26/18 Principal diagnosis: Left lower lobe atelectasis and pleural effusion This is a 70-year-old female patient who presented for an elective extra 10 laparotomy and low anterior resection, takedown of the splenic flexure and repair of a small incisional hernia in the surgery was done. The patient is currently postop day #3. Note that the patient was having frequent bouts of diverticulitis and for that reason further decided to proceed with the surgery. She is known to have previous history of breast cancer and she has undergone mastectomy followed by radiation therapy and she has chronic scarring in the right apical area that was seen on previous CAT scans of the chest. She has also received hemotherapy. She has been in remission in regards to her breast cancer. She is an ex-smoker. She has hypothyroidism as another comorbid conditions. The patient also has severe kyphoscoliosis of the chest with DEXA scoliosis of the thoracic spine. At this point in time, the patient on a combination of antibiotics including Zithromax and Rocephin. UTI was suspected based on that the antibiotics were broadened. In terms of breathing, the patient has a congested cough. No significant sputum production. Chest x-ray shows severe kyphoscoliosis of the chest and there is no acute other modalities noted. Diaphragms are clear. No significant respiratory distress. She is having a congested cough. The patient does opt utilizes home oxygen. The patient has been maintained on no inhalers on outpatient basis. In terms of her surgical progress, no nausea and no vomiting and the surgical wound site is dry clean and intact at this point in time. Abdominal binder is in place. On 07/26/2018 we are asked to see the patient again for evaluation of chest x- ray findings. Patient is status post exploratory laparotomy and low anterior resection with takedown of the splenic flexure and repair of a small incisional hernia. This is postop day 9. Patient is still weak, but she was able to ambulate from the bed to the bathroom with little assistance, lung sounds are quite congested, patient has a weak congested cough, but she is laying down in bed. She denies any worsening shortness of breath, she is on room air and her sat is 97%, she is afebrile, she is hemodynamic stable. Chest x-ray on 2017 showed extensive left atelectasis and small left pleural effusion. Clinically patient denies any pulmonary symptoms, is maintaining good oxygenation on room air, covered with antibiotics, she is afebrile. She is on nebulized bronchodilators. We're asked to see the patient in regards the appearance of left lower lobe atelectasis and small left pleural effusion, she does not require any drainage at this time Objective - Vital Signs Vital signs: Vital Signs Temp 98.9 F 07/26/18 14:48 Pulse 78 07/26/18 16:32 Resp 22 07/26/18 14:48 BP 135/80 07/26/18 14:48 Pulse Ox 97 07/26/18 14:48 Intake & Output 07/25/18 07/26/18 07/26/18 18:59 06:59 18:59 Intake Total 450 1020 914 Output Total 350 Balance 100 1020 914 Weight 59.874 kg 59.874 kg Intake: IV 914 Mvi, Adult No.4 with Vit 664 K 10 ml Trace (Conc-1Ml/ Dose) 1 ml In Amino Acid 4.25%-D10w+Lytes*E* 1,000 ml @ 83 mls/hr IV .BY [facility] Rx#: [id number] Sodium Glycerophosphate 250 10 mmol In Sodium Chloride 0.9% 250 ml @ 31 .25 mls/hr IV ONCE [facility] Rx #:[id number] Intake, IV Titration 450 1020 Amount Azithromycin 500 mg In 250 Sodium Chloride 0.9% 250 ml @ 250 mls/hr IVPB DAILY@1200 [facility] Rx#: [id number] Dextrose 5%-0.45% NaCl 1, 150 000 ml @ 50 mls/hr IV . Q20H [facility] Rx#:[id number] Fat Emulsion 20% 250 ml @ 220 20.833 mls/hr IV DAILY@ 1600 [facility] Rx#:[id number] Meropenem 1 gm In Sodium 200 100 Chloride 0.9% 100 ml @ 200 mls/hr IVPB Q8HR [facility] Rx#:[id number] Mvi, Adult No.4 with Vit 550 K 10 ml Trace (Conc-1Ml/ Dose) 1 ml In Amino Acid 4.25%-D10w+Lytes*E* 1,000 ml @ 50 mls/hr IV . [id number] [facility] Rx#:[id number] Output: Urine 350 Other: Voiding Method Bedside Commode Bedside Commode # Voids 1 3 4 # Bowel Movements 1 - Exam Appearance the patient is calm comfortable likely distress. She is not using excessive muscle breathing. Head exam was generally normal. There was no scleral icterus or corneal arcus. Mucous membranes were moist. Neck was supple and without jugular venous distension, thyromegaly, or carotid bruits. Carotids were easily palpable bilaterally. There was no adenopathy. Lungs sounds are showing equal and symmetrical breath sounds bilaterally. Scattered rhonchi. There is severe lows of the thoracic spine and this deformities clearly appreciated on physical examination. Cardiac exam revealed the PMI to be normally situated and sized. The rhythm was regular and no extrasystoles were noted during several minutes of auscultation. The first and second heart sounds were normal and physiologic splitting of the second heart sound was noted. There were no murmurs, rubs, clicks, or gallops. Abdominal exam revealed normal bowel sounds. The abdomen was soft, non-tender, and without masses, organomegaly, or appreciable enlargement of the abdominal aorta. The abdominal wound is dry clean and intact a bowel sounds are present. There is some dark blood shadowing the midline dressing. The patient is wearing an abdominal binder. Examination of the extremities revealed easily palpable radial, femoral and pedal pulses. There was no cyanosis, clubbing or edema. Examination of the skin revealed no evidence of significant rashes, suspicious appearing nevi or other concerning lesions. Neurologically awake and alert and there is no focal neurological deficit. - Labs CBC & Chem 7: 07/26/18 07:01 07/26/18 07:01 Labs: Abnormal Lab Results - Last 24 Hours (Table) 07/26/18 07/26/18 Range/Units 07:01 07:01 RBC 3.44 L (3.80-5.40) m/uL Hgb 10.8 L (11.4-16.0) gm/dL Hct 32.7 L (34.0-46.0) % Neutrophils # 8.0 H (1.3-7.7) k/uL Creatinine 0.41 L (0.52-1.04) mg/dL Glucose 134 H (74-99) mg/dL Phosphorus 2.1 L (2.5-4.5) mg/dL Total Protein 5.4 L (6.3-8.2) g/dL Albumin 2.6 L (3.5-5.0) g/dL Microbiology - Last 24 Hours (Table) 07/24/18 12:35 Blood Culture - Preliminary Blood No Growth after 48 hours 07/24/18 16:24 Gram Stain - Preliminary Abdomen Wound Culture - Preliminary Gram Neg Bacilli 07/19/18 16:15 Blood Culture - Final Blood No Growth after 144 hours Assessment and Plan Plan: 1 low anterior resection in addition to resection of the splenic flexure of the colon and repair of a small incisional hernia and the patient is postop day #9. The surgery was originally to treat this patient's recurrent diverticulitis complications 2 severe scoliosis of the thoracic spine 3 COPD 4 chest congestion without indication of an underlying pneumonia. Could be related to poor pulmonary toileting. Pneumonia cannot be completely excluded. 5 hypothyroidism 6 history of breast cancer with previous mastectomy followed by radiation therapy and chemotherapy 2004 7 chronic right apical scarring probably related to previous radiation therapy. This is a finding that has been present on previous CAT scan of the chest and there is no indication of any malignancy involving the lungs 8 UTI currently on Rocephin 9 left lower lung atelectasis and small left pleural effusion does not require draining Plan: Continue with pulmonary toileting, incentive spirometry, encourage sitting up in the chair, ambulation. No clear evidence of pneumonia, left lower base has extensive atelectasis, and small left pleural effusion is not excluded. If patient becomes symptomatic, we can get ultrasound of the chest CT was a sizable pocket to drain. Otherwise continue with current treatment, nebulized bronchodilators. We will follow as needed I performed a history & physical examination of the patient and discussed their management with my nurse practitioner, Keely Horn. I reviewed the nurse practitioner's note and agree with the documented findings and plan of care. Lung sounds are positive for diffuse rhonchi. The findings and the impression was discussed with the patient. I attest to the documentation by the nurse practitioner. Time with Patient: Less than 30
[2018-07-27] MEDS: MEROPENEM 1 GM in SODIUM CHLORIDE 0.9% 100 ML IVPB SCH ×4 (00:33→23:18)
[2018-07-27] MEDS: HYDROmorphone 1 MG/ML 1 ML SYRINGE IVP PRN ×5 (00:33→20:20)
[2018-07-27 00:59] LABS: Glucose,Whole Blood 125 mg/dL (75-99)
[2018-07-27] MEDS: DEXTROSE 5%-0.45% NACL 1,000 ML IV SCH ×2 (02:53→23:18)
[2018-07-27] MEDS: HEPARIN SODIUM,PORCINE 5,000 UNIT/ML 1 ML VIAL SQ SCH ×3 (04:09→20:20)
[2018-07-27] MEDS: guaiFENesin 600 MG TABLET.ER PO PRN (04:09)
[2018-07-27] MEDS: LEVOTHYROXINE 112 MCG TAB PO SCH (06:01)
[2018-07-27 06:08] LABS: Glucose,Whole Blood 106 mg/dL (75-99)
[2018-07-27 07:34] LABS: Basophils % (A) 0 %; Eosinophils # (A) 0.2 k/uL (0-0.7); Eosinophils % (A) 3 %; HCT 34.5 % (34.0-46.0); HGB 11.3 gm/dL (11.4-16.0); Lymphocytes # (A) 1.6 k/uL (1.0-4.8); Lymphocytes % (A) 17 %; MCH 30.6 pg (25.0-35.0); MCHC 32.7 g/dL (31.0-37.0); MCV 93.6 fL (80.0-100.0); Mean Platelet Volume 6.8; Monocytes # (A) 0.4 k/uL (0-1.0); Monocytes % (A) 5 %; Neutrophils # (A) 6.8 k/uL (1.3-7.7); Neutrophils % (A) 74 %; Platelet Count 346 k/uL (150-450); RBC 3.68 m/uL (3.80-5.40); RDW 13.1 % (11.5-15.5); WBC 9.2 k/uL (3.8-10.6)
[2018-07-27 07:44] LABS: ALT 24 U/L (9-52); AST 23 U/L (14-36); Albumin 2.8 g/dL (3.5-5.0); Alkaline Phosphatase 61 U/L (38-126); Anion Gap 6 mmol/L; Blood Urea Nitrogen 12 mg/dL (7-17); Calcium 8.6 mg/dL (8.4-10.2); Carbon Dioxide 29 mmol/L (22-30); Chloride 102 mmol/L (98-107); Glucose 112 mg/dL (74-99); Magnesium 2.1 mg/dL (1.6-2.3); Phosphorus 2.7 mg/dL (2.5-4.5); Potassium 4.1 mmol/L (3.5-5.1); Sodium 137 mmol/L (137-145); Total Bilirubin 0.3 mg/dL (0.2-1.3); Total Protein 5.7 g/dL (6.3-8.2)
[2018-07-27] MEDS: NICOTINE 14MG/24HR PATCH TRANSDERM SCH (07:46)
[2018-07-27] MEDS: FAMOTIDINE 20 MG TAB PO SCH ×2 (07:46→20:20)
[2018-07-27] MEDS: MELOXICAM 7.5 MG TAB PO SCH (07:46)
[2018-07-27] MEDS: IPRATROPIUM-ALBUTEROL 3 ML NEB INHALATION SCH ×4 (09:59→20:34)
[2018-07-27] MEDS: 1: MVI, ADULT NO.4 WITH VIT K 10 ML, TRACE (CONC-1ML/DOSE) 1 ML in AMINO ACID 4.25%-D10W IV SCH ×6 (10:30→23:18)
[2018-07-27 12:32] LABS: Glucose,Whole Blood 94 mg/dL (75-99)
--- NOTE | 2018-07-27 13:08 | P.PN ---
Subjective This is a 72-year-old female patient who presented for an elective exploratory lap, lower anterior resection, takedown of splenic flexure and repair small incisional hernia with Dr. Washington. Patient is postop day 1. Patient has a known past medical history of diverticulitis with frequent flareups. Additional medical history includes breast cancer in 2004 with radiation and chemo, Osteoarthritis, Hypothyroidism and nicotine dependence. Patient currently has epidural in place. At this time pain is adequately controlled. Patient is on clear liquid diet. Patient denies any gas or bowel movements at this time. Midline dressing noted to have bloody drainage. Abdominal binder in place. This time patient denies chest pain or shortness of breath. Patient denies nausea vomiting or diarrhea. Patient denies any urinary burning or frequency. Nicotine patch will be ordered On 07/19/2018 patient currently postop day 2. patient is currently sitting up in chair eating clear liquid diet. Per patient she is passing gas. Patient currently states her shortness of breath is improved with breathing treatments. Vision started on Zithromax and Rocephin for antibiotics for possible pneumonia and UTI. Encouraged patient to continue walking and incentive spirometer use. On 07/20/2018 patient is currently postop day 2. Patient is currently sitting up in bed. Patient remains on clear liquid diet. Dr. Gomez has been consulted for pneumonia and urinary tract infection. patient remains on IV Rocephin and oral Zithromax. Patient does state some improvement with shortness of breath. This time patient denies chest pain or shortness breath patient denies nausea vomiting or diarrhea. Patient denies any urinary burning or frequency. On 07/21/2018 patient is currently postop day 3. Patient is currently sitting up in bed. Patient remains on clear liquid diet. Patient is still complaining of abdominal pain. Will order wound cultures at this time. Infectious disease is following. Patient is still having productive cough. Pulmonary services following. Denies chest pain or shortness breath. Patient denies nausea vomiting or diarrhea. Patient denies any urinary burning or frequency. Patient has not had bowel movement yet On 07/22/2018 patient is currently postop day 4. Patient is currently lying in bed. Patient has been advanced to a soft diet. Patient reports she had bowel movement last night. Patient is still complaining of significant abdominal pain. Wound cultures have been ordered. ID following. At this time patient states shortness of breath is improving. Patient denies chest pain. Patient denies any nausea or vomiting. Patient denies any urinary burning or frequency On 07/23/2018 patient is currently postop day 5. Patient is currently lying in bed. Patient has been tolerating diet. Patient did have a bowel movement yesterday. Patient is complaining of burning with urination. Patient is on Rocephin and Zithromax. Urine culture currently showing no growth. Infectious disease following. This time patient states shortness of breath is improving. Patient denies nausea vomiting or diarrhea. Patient denies chest pain. On 07/24/2018 patient is currently resting in bed. Discussed case with surgical service infectious planning to go back to the OR today with Dr. Washington for Dehiscence of abdominal wound. Patient remains on Zosyn for IV antibiotics. At this time patient states shortness of breath improved. Patient denies nausea vomiting or diarrhea. Patient denies urinary burning or frequency On 07/25/2018 patient is currently resting comfortably in bed. Patient is status post repair of wound dehiscece with Dr. Washington on 07/24/2018. Abdomen wound currently growing E. coli. Patient also having low-grade temps. Infectious disease is following. Antibiotics have been changed to meropenem and cultures have been ordered. At this time patient is complaining of some abdominal discomfort. Patient denies nausea vomiting or diarrhea. Patient denies any urinary burning or frequency. Denies chest pain or shortness of breath. On 07/26/2018 patient is currently resting in bed getting a breathing treatment. Patient is currently postop day 2 from post repair of wound dehiscence on 07/24/2018. Patient currently is PICC line in place remains on meropenem per infectious disease patient does state abdominal pain starting to subside. Patient denies chest pain or shortness breath. Patient denies nausea vomiting or diarrhea. Patient denies any urinary burning or frequency On 07/27/2018 patient is alert and oriented 3 in no apparent distress, she is sitting up in a chair, she is complaining of some abdominal discomfort, she stated that she had more than 10 bowel movements in the last 12 hours which is mostly liquid stool, otherwise she denies any complaints at this time. Objective - Vital Signs Vital signs: Vital Signs Temp 98.6 F 07/27/18 07:04 Pulse 73 07/27/18 07:04 Resp 18 07/27/18 07:04 BP 159/90 07/27/18 07:04 Pulse Ox 96 07/27/18 07:04 Intake & Output 07/26/18 07/27/18 07/27/18 18:59 06:59 18:59 Intake Total 914 2217 Output Total 5 Balance 914 2212 Weight 59.874 kg Intake: IV 914 83 Mvi, Adult No.4 with Vit 664 83 K 10 ml Trace (Conc-1Ml/ Dose) 1 ml In Amino Acid 4.25%-D10w+Lytes*E* 1,000 ml @ 83 mls/hr IV .BY DURATION [facility] Rx#: [id number] Sodium Glycerophosphate 250 10 mmol In Sodium Chloride 0.9% 250 ml @ 31 .25 mls/hr IV ONCE ONE Rx #:[id number] Intake, IV Titration 2134 Amount Amino Acid 4.25%-D10w+ 1000 Lytes*E* 1,000 ml @ 83 mls/hr IV .BY DURATION [facility] Rx#:[id number] Dextrose 5%-0.45% NaCl 1, 220 000 ml @ 50 mls/hr IV . Q20H [facility] Rx#:[id number] Mvi, Adult No.4 with Vit 664 K 10 ml Trace (Conc-1Ml/ Dose) 1 ml In Amino Acid 4.25%-D10w+Lytes*E* 1,000 ml @ 83 mls/hr IV .BY DURATION [facility] Rx#: [id number] Sodium Glycerophosphate 250 10 mmol In Sodium Chloride 0.9% 250 ml @ 31 .25 mls/hr IV ONCE ONE Rx #:[id number] Output: Urine/Stool Mix 5 Other: Voiding Method Bedside Commode # Voids 4 2 - Exam Head normocephalic and atraumatic Neck supple no JVD no goiter Lungs diminished bilaterally. Left lower lobe crackles to auscultation Heart regular rate and rhythm S1-S2, no rub or gallop Abdomen Acitvbe bowel sounds. Abdominal dressing is clean dry and intact. Abdominal binder is in place Extremities no edema no cyanosis or clubbing Neuro alert and orientated to 3 - Labs CBC & Chem 7: 07/27/18 07:10 07/27/18 07:10 Labs: Abnormal Lab Results - Last 24 Hours (Table) 07/27/18 07/27/18 07/27/18 Range/Units 00:57 06:06 07:10 RBC 3.68 L (3.80-5.40) m/uL Hgb 11.3 L (11.4-16.0) gm/dL Creatinine (0.52-1.04) mg/dL Glucose (74-99) mg/dL POC Glucose (mg/dL) 125 H 106 H (75-99) mg/dL Total Protein (6.3-8.2) g/dL Albumin (3.5-5.0) g/dL 07/27/18 Range/Units 07:10 RBC (3.80-5.40) m/uL Hgb (11.4-16.0) gm/dL Creatinine 0.36 L (0.52-1.04) mg/dL Glucose 112 H (74-99) mg/dL POC Glucose (mg/dL) (75-99) mg/dL Total Protein 5.7 L (6.3-8.2) g/dL Albumin 2.8 L (3.5-5.0) g/dL Microbiology - Last 24 Hours (Table) 07/24/18 16:24 Anaerobic Culture - Preliminary Abdomen 07/24/18 16:24 Gram Stain - Final Abdomen Wound Culture - Final Escherichia coli 07/24/18 12:35 Blood Culture - Preliminary Blood No Growth after 48 hours Assessment and Plan Plan: 1. Status post exploratory lap, lower anterior resection, takedown of splenic flexure and repair a small incisional hernia with Dr. Washington. Wound culture currently going gram-negative bacilli. Infectious disease is following. Patient currently on Merropenem per infectious disease. Abdomen wound culture currently growing E. coli. Infectious disease following. New wound cultures have been ordered. Patient currently on meropenem for her IV antibiotic. Patient also having low-grade temps 2. History of diverticulitis 3. Nicotine dependence. Will order nicotine patch at this time. Patient educated greater than 3 minutes on smoking cessation 4. History of osteoarthritis 5. History of hypothyroidism. Synthroid resumed 6. History of breast cancer in 2004 with radiation and chemotherapy 7. Urinary tract infection. Patient started on Rocephin. Urine currently showing no growth. 8. pneumonia. Chest x-ray showing left lower infiltrate and small amount of free intraperitoneal air suspected. Per nursing staff Dr. Washington made aware of chest x-ray findings no new orders. Patient started on Zithromax and Rocephin IV antibiotics. Continue DuoNeb breathing treatment sputum culture ordered. Infectious disease following for pneumonia and UTI. Patient remains on IV Rocephin and oral azithromycin. Per pulmonary services doubt pneumonia. Continue aggressive pulmonary toileting and incentive spirometer. Chest x-ray completed showing clinical correlation recommended for left basilar infiltrate and/or small effusion 9. wound Dehiscence. Patient is currently status post repair of wound dehiscence with Dr. Washington. Patient is currently postop day 2. Patient currently clear liquid diet. PICC line placed per ID patient currently on IV nutrition and IV meropenem per infectious disease 10. Diarrhea Will obtain stools for C. diff DVT prophylaxis heparin. Incentive spirometer encouraged SCDs in place
--- NOTE | 2018-07-27 13:14 | P.PN ---
Subjective Progress Note Date: 07/27/18 Principal diagnosis: Left lower lobe atelectasis and small pleural effusion This is a 70-year-old female patient who presented for an elective extra 10 laparotomy and low anterior resection, takedown of the splenic flexure and repair of a small incisional hernia in the surgery was done. The patient is currently postop day #3. Note that the patient was having frequent bouts of diverticulitis and for that reason further decided to proceed with the surgery. She is known to have previous history of breast cancer and she has undergone mastectomy followed by radiation therapy and she has chronic scarring in the right apical area that was seen on previous CAT scans of the chest. She has also received hemotherapy. She has been in remission in regards to her breast cancer. She is an ex-smoker. She has hypothyroidism as another comorbid conditions. The patient also has severe kyphoscoliosis of the chest with DEXA scoliosis of the thoracic spine. At this point in time, the patient on a combination of antibiotics including Zithromax and Rocephin. UTI was suspected based on that the antibiotics were broadened. In terms of breathing, the patient has a congested cough. No significant sputum production. Chest x-ray shows severe kyphoscoliosis of the chest and there is no acute other modalities noted. Diaphragms are clear. No significant respiratory distress. She is having a congested cough. The patient does opt utilizes home oxygen. The patient has been maintained on no inhalers on outpatient basis. In terms of her surgical progress, no nausea and no vomiting and the surgical wound site is dry clean and intact at this point in time. Abdominal binder is in place. On 07/26/2018 we are asked to see the patient again for evaluation of chest x- ray findings. Patient is status post exploratory laparotomy and low anterior resection with takedown of the splenic flexure and repair of a small incisional hernia. This is postop day 9. Patient is still weak, but she was able to ambulate from the bed to the bathroom with little assistance, lung sounds are quite congested, patient has a weak congested cough, but she is laying down in bed. She denies any worsening shortness of breath, she is on room air and her sat is 97%, she is afebrile, she is hemodynamic stable. Chest x-ray on 2017 showed extensive left atelectasis and small left pleural effusion. Clinically patient denies any pulmonary symptoms, is maintaining good oxygenation on room air, covered with antibiotics, she is afebrile. She is on nebulized bronchodilators. We're asked to see the patient in regards the appearance of left lower lobe atelectasis and small left pleural effusion, she does not require any drainage at this time On 07/27/2018, patient was reevaluated, seems to be doing well, no specific complaints, no cough no wheezing no shortness of breath. I talked to her again today about her pleural effusion, patient prefers only conservative measures, she may or may not require thoracentesis. At this point I see no need for thoracentesis, patient will likely improve with incentive spirometry, bronchodilators, and diuretics. As well as early ambulation. Objective - Vital Signs Vital signs: Vital Signs Temp 98.6 F 07/27/18 07:04 Pulse 75 07/27/18 13:06 Resp 18 07/27/18 07:04 BP 159/90 07/27/18 07:04 Pulse Ox 96 07/27/18 07:04 Intake & Output 07/26/18 07/27/18 07/27/18 18:59 06:59 18:59 Intake Total 914 2217 Output Total 5 Balance 914 2212 Weight 59.874 kg Intake: IV 914 83 Mvi, Adult No.4 with Vit 664 83 K 10 ml Trace (Conc-1Ml/ Dose) 1 ml In Amino Acid 4.25%-D10w+Lytes*E* 1,000 ml @ 83 mls/hr IV .BY DURATION [facility] Rx#: [id number] Sodium Glycerophosphate 250 10 mmol In Sodium Chloride 0.9% 250 ml @ 31 .25 mls/hr IV ONCE ONE Rx #:[id number] Intake, IV Titration 2134 Amount Amino Acid 4.25%-D10w+ 1000 Lytes*E* 1,000 ml @ 83 mls/hr IV .BY DURATION [facility] Rx#:[id number] Dextrose 5%-0.45% NaCl 1, 220 000 ml @ 50 mls/hr IV . Q20H [facility] Rx#:[id number] Mvi, Adult No.4 with Vit 664 K 10 ml Trace (Conc-1Ml/ Dose) 1 ml In Amino Acid 4.25%-D10w+Lytes*E* 1,000 ml @ 83 mls/hr IV .BY DURATION [facility] Rx#: [id number] Sodium Glycerophosphate 250 10 mmol In Sodium Chloride 0.9% 250 ml @ 31 .25 mls/hr IV ONCE ONE Rx #:[id number] Output: Urine/Stool Mix 5 Other: Voiding Method Bedside Commode # Voids 4 2 - Exam Gen. Appearance : the patient is calm in no form of respiratory distress.. . Head exam was generally normal. There was no scleral icterus or corneal arcus. Mucous membranes were moist. Neck was supple and without jugular venous distension, thyromegaly, or carotid bruits. Carotids were easily palpable bilaterally. There was no adenopathy. Lungs sounds are showing equal and symmetrical breath sounds bilaterally. Scattered rhonchi. There is severe lows of the thoracic spine and this deformities clearly appreciated on physical examination. Cardiac exam revealed the PMI to be normally situated and sized. The rhythm was regular and no extrasystoles were noted during several minutes of auscultation. The first and second heart sounds were normal and physiologic splitting of the second heart sound was noted. There were no murmurs, rubs, clicks, or gallops. Abdominal exam revealed normal bowel sounds. The abdomen was soft, non-tender, and without masses, organomegaly, or appreciable enlargement of the abdominal aorta. The abdominal wound is dry clean and intact a bowel sounds are present. There is some dark blood shadowing the midline dressing. The patient is wearing an abdominal binder. Examination of the extremities revealed easily palpable radial, femoral and pedal pulses. There was no cyanosis, clubbing or edema. Examination of the skin revealed no evidence of significant rashes, suspicious appearing nevi or other concerning lesions. Neurologically awake and alert and there is no focal neurological deficit. - Labs CBC & Chem 7: 07/27/18 07:10 07/27/18 07:10 Labs: Abnormal Lab Results - Last 24 Hours (Table) 07/27/18 07/27/18 07/27/18 Range/Units 00:57 06:06 07:10 RBC 3.68 L (3.80-5.40) m/uL Hgb 11.3 L (11.4-16.0) gm/dL Creatinine (0.52-1.04) mg/dL Glucose (74-99) mg/dL POC Glucose (mg/dL) 125 H 106 H (75-99) mg/dL Total Protein (6.3-8.2) g/dL Albumin (3.5-5.0) g/dL 07/27/18 Range/Units 07:10 RBC (3.80-5.40) m/uL Hgb (11.4-16.0) gm/dL Creatinine 0.36 L (0.52-1.04) mg/dL Glucose 112 H (74-99) mg/dL POC Glucose (mg/dL) (75-99) mg/dL Total Protein 5.7 L (6.3-8.2) g/dL Albumin 2.8 L (3.5-5.0) g/dL Microbiology - Last 24 Hours (Table) 07/24/18 16:24 Anaerobic Culture - Preliminary Abdomen 07/24/18 16:24 Gram Stain - Final Abdomen Wound Culture - Final Escherichia coli 07/24/18 12:35 Blood Culture - Preliminary Blood No Growth after 48 hours Assessment and Plan Assessment: Plan: 1 low anterior resection in addition to resection of the splenic flexure of the colon and repair of a small incisional hernia and the patient is postop day # 10. The surgery was originally to treat this patient's recurrent diverticulitis complications 2 severe scoliosis of the thoracic spine 3 COPD 4 chest congestion without indication of an underlying pneumonia. Could be related to poor pulmonary toileting. Pneumonia cannot be completely excluded. 5 hypothyroidism 6 history of breast cancer with previous mastectomy followed by radiation therapy and chemotherapy 2004 7 chronic right apical scarring probably related to previous radiation therapy. This is a finding that has been present on previous CAT scan of the chest and there is no indication of any malignancy involving the lungs 8 UTI currently on Rocephin 9 left lower lung atelectasis and small left pleural effusion does not require draining Recommendation: Continue incentive spirometry, bronchodilators, early ambulation , at this point I don't see the need for thoracentesis, however the patient becomes symptomatic, would consider ultrasound of the chest, and thoracentesis. We'll recommend conservative measures for now. Time with Patient: Less than 30
--- NOTE | 2018-07-27 14:31 | P.PN ---
Subjective Progress Note Date: 07/27/18 CHIEF COMPLAINT: Diverticulitis and wound dehiscence HISTORY OF PRESENT ILLNESS: The patient is a 73-year-old female who went to the operating room for both diverticulitis followed by wound dehiscence and now has an abdominal wound VAC. "I hate the taste of liquids. Her is at bedside Patient has many complaints of her diet. She has many questions about the length of time for abdominal wound VAC. PHYSICAL EXAM: VITAL SIGNS: Currently stable. GENERAL: Well-developed in no acute distress. HEENT: No sclera icterus. Extraocular movements grossly intact. Moist buccal mucosa. Head is atraumatic, normocephalic. Hears conversational speech. No nasal drainage. NECK: Supple without lymphadenopathy. CHEST: Non-labored respirations and equal bilateral excursions. CARDIOVASCULAR: Palpable 2+ radial pulses. ABDOMEN: Wound VAC functioning with serial intact. Dressing intact. MUSCULOSKELETAL: No clubbing, cyanosis or edema. NEUROLOGIC: No focal or lateralizing signs. Cranial nerves II through XII grossly intact. PSYCH: Appropriate affect. Alert and oriented to person, place and time. SKIN: Well perfused. Good skin turgor. ASSESSMENT: 1. Diverticulitis with wound dehiscence PLAN: 1. Her questions regarding wound VAC type and duration directed to her primary surgeon. 2. Additionally, she is concerned for left of time on IV antibiotics which is also deferred to primary team 3. She is encouraged to increase her dietary intake for overall wound care. Objective - Vital Signs Vital signs: Vital Signs Temp 98.6 F 07/27/18 07:04 Pulse 75 07/27/18 13:18 Resp 18 07/27/18 07:04 BP 159/90 07/27/18 07:04 Pulse Ox 96 07/27/18 07:04 Intake & Output 07/26/18 07/27/18 07/27/18 18:59 06:59 18:59 Intake Total 914 2217 Output Total 5 Balance 914 2212 Weight 59.874 kg Intake: IV 914 83 Mvi, Adult No.4 with Vit 664 83 K 10 ml Trace (Conc-1Ml/ Dose) 1 ml In Amino Acid 4.25%-D10w+Lytes*E* 1,000 ml @ 83 mls/hr IV .BY DURATION [facility] Rx#: [id number] Sodium Glycerophosphate 250 10 mmol In Sodium Chloride 0.9% 250 ml @ 31 .25 mls/hr IV ONCE ONE Rx #:[id number] Intake, IV Titration 2134 Amount Amino Acid 4.25%-D10w+ 1000 Lytes*E* 1,000 ml @ 83 mls/hr IV .BY DURATION [facility] Rx#:[id number] Dextrose 5%-0.45% NaCl 1, 220 000 ml @ 50 mls/hr IV . Q20H [facility] Rx#:[id number] Mvi, Adult No.4 with Vit 664 K 10 ml Trace (Conc-1Ml/ Dose) 1 ml In Amino Acid 4.25%-D10w+Lytes*E* 1,000 ml @ 83 mls/hr IV .BY DURATION [facility] Rx#: [id number] Sodium Glycerophosphate 250 10 mmol In Sodium Chloride 0.9% 250 ml @ 31 .25 mls/hr IV ONCE ONE Rx #:[id number] Output: Urine/Stool Mix 5 Other: Voiding Method Bedside Commode # Voids 4 2 - Labs CBC & Chem 7: 07/27/18 07:10 07/27/18 07:10 Labs: Abnormal Lab Results - Last 24 Hours (Table) 07/27/18 07/27/18 07/27/18 Range/Units 00:57 06:06 07:10 RBC 3.68 L (3.80-5.40) m/uL Hgb 11.3 L (11.4-16.0) gm/dL Creatinine (0.52-1.04) mg/dL Glucose (74-99) mg/dL POC Glucose (mg/dL) 125 H 106 H (75-99) mg/dL Total Protein (6.3-8.2) g/dL Albumin (3.5-5.0) g/dL 07/27/18 Range/Units 07:10 RBC (3.80-5.40) m/uL Hgb (11.4-16.0) gm/dL Creatinine 0.36 L (0.52-1.04) mg/dL Glucose 112 H (74-99) mg/dL POC Glucose (mg/dL) (75-99) mg/dL Total Protein 5.7 L (6.3-8.2) g/dL Albumin 2.8 L (3.5-5.0) g/dL Microbiology - Last 24 Hours (Table) 07/24/18 16:24 Anaerobic Culture - Preliminary Abdomen 07/24/18 16:24 Gram Stain - Final Abdomen Wound Culture - Final Escherichia coli 07/24/18 12:35 Blood Culture - Preliminary Blood No Growth after 48 hours Assessment and Plan (1) Abdominal wound dehiscence Current Visit: Yes Status: Acute Code(s): T81.30XA - DISRUPTION OF WOUND, UNSPECIFIED, INITIAL ENCOUNTER SNOMED Code(s): 354978761 (2) Colonic diverticular abscess Current Visit: No Status: Acute Code(s): K57.20 - DVTRCLI OF LG INT W PERFORATION AND ABSCESS W/O BLEEDING SNOMED Code(s): 558061921 (3) Diverticulitis Current Visit: No Status: Acute Code(s): K57.92 - DVTRCLI OF INTEST, PART UNSP, W/O PERF OR ABSCESS W/O BLEED SNOMED Code(s): 896487382
[2018-07-27] MEDS: FAT EMULSION 20% 250 ML IV SCH (17:32)
[2018-07-27 23:35] LABS: Glucose,Whole Blood 117 mg/dL (75-99)
[2018-07-28] MEDS: HYDROmorphone 1 MG/ML 1 ML SYRINGE IVP PRN ×6 (02:12→21:12)
[2018-07-28] MEDS: HEPARIN SODIUM,PORCINE 5,000 UNIT/ML 1 ML VIAL SQ SCH ×3 (04:29→21:12)
--- NOTE | 2018-07-28 06:41 | XR ---
EXAMINATION TYPE: XR chest 2V DATE OF EXAM: 07/28/2018 HISTORY: follow up infiltrate. REFERENCE: Previous study dated 07/25/2018. FINDINGS: There is a marked S-shaped scoliosis convex to the right in the thoracic region and to the left in the lumbar region. This largely obscures heart size. The heart does appear enlarged. There is left basilar atelectasis. There is a small left effusion. IMPRESSION: 1. CONTINUING LEFT BASILAR ATELECTASIS. 2. SMALL LEFT EFFUSION.
[2018-07-28] MEDS: LEVOTHYROXINE 112 MCG TAB PO SCH (06:42)
[2018-07-28 06:59] LABS: Glucose,Whole Blood 106 mg/dL (75-99)
[2018-07-28 08:18] LABS: ALT 21 U/L (9-52); AST 26 U/L (14-36); Albumin 2.8 g/dL (3.5-5.0); Alkaline Phosphatase 69 U/L (38-126); Anion Gap 6 mmol/L; Blood Urea Nitrogen 12 mg/dL (7-17); Calcium 8.7 mg/dL (8.4-10.2); Carbon Dioxide 28 mmol/L (22-30); Chloride 102 mmol/L (98-107); Glucose 108 mg/dL (74-99); Magnesium 2.1 mg/dL (1.6-2.3); Phosphorus 2.8 mg/dL (2.5-4.5); Potassium 4.3 mmol/L (3.5-5.1); Sodium 136 mmol/L (137-145); Total Bilirubin 0.2 mg/dL (0.2-1.3); Total Protein 5.7 g/dL (6.3-8.2)
[2018-07-28] MEDS: MELOXICAM 7.5 MG TAB PO SCH (08:20)
[2018-07-28] MEDS: FAMOTIDINE 20 MG TAB PO SCH ×2 (08:20→21:12)
[2018-07-28] MEDS: NICOTINE 14MG/24HR PATCH TRANSDERM SCH (08:22)
[2018-07-28] MEDS: MEROPENEM 1 GM in SODIUM CHLORIDE 0.9% 100 ML IVPB SCH ×3 (08:22→23:31)
[2018-07-28] MEDS: IPRATROPIUM-ALBUTEROL 3 ML NEB INHALATION SCH ×4 (08:41→20:51)
[2018-07-28 08:49] LABS: Basophils % (A) 0 %; Eosinophils # (A) 0.3 k/uL (0-0.7); Eosinophils % (A) 3 %; HCT 34.4 % (34.0-46.0); HGB 11.1 gm/dL (11.4-16.0); Hypochromasia Slight; Lymphocytes # (A) 1.4 k/uL (1.0-4.8); Lymphocytes % (A) 17 %; MCH 30.4 pg (25.0-35.0); MCHC 32.3 g/dL (31.0-37.0); MCV 94.2 fL (80.0-100.0); Mean Platelet Volume 7.1; Monocytes # (A) 0.5 k/uL (0-1.0); Monocytes % (A) 6 %; Neutrophils # (A) 6.1 k/uL (1.3-7.7); Neutrophils % (A) 72 %; Platelet Count 367 k/uL (150-450); RBC 3.65 m/uL (3.80-5.40); RDW 13.3 % (11.5-15.5); WBC 8.4 k/uL (3.8-10.6)
[2018-07-28] MEDS: 1: MVI, ADULT NO.4 WITH VIT K 10 ML, TRACE (CONC-1ML/DOSE) 1 ML in AMINO ACID 4.25%-D10W IV SCH ×6 (09:59→21:12)
[2018-07-28] MEDS: DEXTROSE 5%-0.45% NACL 1,000 ML IV SCH (09:59)
[2018-07-28 11:56] LABS: Glucose,Whole Blood 116 mg/dL (75-99)
--- NOTE | 2018-07-28 12:26 | P.PN ---
Subjective Progress Note Date: 07/28/18 CHIEF COMPLAINT: Diverticulitis and wound dehiscence HISTORY OF PRESENT ILLNESS: The patient is a 73-year-old female who went to the operating room for both diverticulitis followed by wound dehiscence and now has an abdominal wound VAC. She is tolerating her full liquid diet. "I like it now." She reports diarrhea. PHYSICAL EXAM: VITAL SIGNS: Currently stable. GENERAL: Well-developed in no acute distress. HEENT: No sclera icterus. Extraocular movements grossly intact. Moist buccal mucosa. Head is atraumatic, normocephalic. Hears conversational speech. No nasal drainage. NECK: Supple without lymphadenopathy. CHEST: Non-labored respirations and equal bilateral excursions. CARDIOVASCULAR: Palpable 2+ radial pulses. ABDOMEN: Wound VAC functioning with seal intact. MUSCULOSKELETAL: No clubbing, cyanosis. NEUROLOGIC: No focal or lateralizing signs. Cranial nerves II through XII grossly intact. PSYCH: Appropriate affect. Alert and oriented to person, place and time. SKIN: Well perfused. Good skin turgor. ASSESSMENT: 1. Diverticulitis with wound dehiscence PLAN: 1. Continue with full liquid diet. 2. May need stool sample for chronic diarrhea. 3. She was encouraged to increase her protein intake for optimal wound healing Objective - Vital Signs Vital signs: Vital Signs Temp 98.6 F 07/28/18 07:00 Pulse 73 07/28/18 08:42 Resp 22 07/28/18 08:00 BP 160/83 07/28/18 07:00 Pulse Ox 96 07/28/18 07:00 Intake & Output 07/27/18 07/28/18 07/28/18 18:59 06:59 18:59 Intake Total 1011 1884 Output Total 3050 500 Balance 1011 -1166 -500 Intake: IV 664 Mvi, Adult No.4 with Vit 664 K 10 ml Trace (Conc-1Ml/ Dose) 1 ml In Amino Acid 4.25%-D10w+Lytes*E* 1,000 ml @ 83 mls/hr IV .BY DURATION [facility] Rx#: [id number] Intake, IV Titration 1011 1220 Amount Amino Acid 4.25%-D10w+ 1000 Lytes*E* 1,000 ml @ 83 mls/hr IV .BY DURATION [facility] Rx#:[id number] Fat Emulsion 20% 250 ml @ 120 20.833 mls/hr IV DAILY@ 1600 [facility] Rx#:[id number] Meropenem 1 gm In Sodium 100 Chloride 0.9% 100 ml @ 200 mls/hr IVPB Q8HR [facility] Rx#:[id number] Mvi, Adult No.4 with Vit 1011 K 10 ml Trace (Conc-1Ml/ Dose) 1 ml In Amino Acid 4.25%-D10w+Lytes*E* 1,000 ml @ 83 mls/hr IV .BY D[facility]ATION [facility] Rx#: [id number] Output: Urine 2750 500 Urine/Stool Mix 300 Other: Voiding Method Bedside Commode # Voids 5 1 1 # Bowel Movements 1 1 - Labs CBC & Chem 7: 07/28/18 07:30 07/28/18 07:30 Labs: Abnormal Lab Results - Last 24 Hours (Table) 07/27/18 07/28/18 07/28/18 Range/Units 23:32 06:55 07:30 RBC (3.80-5.40) m/uL Hgb (11.4-16.0) gm/dL Sodium 136 L (137-145) mmol/L Creatinine 0.37 L (0.52-1.04) mg/dL Glucose 108 H (74-99) mg/dL POC Glucose (mg/dL) 117 H 106 H (75-99) mg/dL Total Protein 5.7 L (6.3-8.2) g/dL Albumin 2.8 L (3.5-5.0) g/dL 07/28/18 07/28/18 Range/Units 07:30 11:46 RBC 3.65 L (3.80-5.40) m/uL Hgb 11.1 L (11.4-16.0) gm/dL Sodium (137-145) mmol/L Creatinine (0.52-1.04) mg/dL Glucose (74-99) mg/dL POC Glucose (mg/dL) 116 H (75-99) mg/dL Total Protein (6.3-8.2) g/dL Albumin (3.5-5.0) g/dL Microbiology - Last 24 Hours (Table) 07/24/18 12:35 Blood Culture - Preliminary Blood No Growth after 72 hours 07/24/18 16:24 Anaerobic Culture - Preliminary Abdomen Assessment and Plan (1) Abdominal wound dehiscence Current Visit: Yes Status: Acute Code(s): T81.30XA - DISRUPTION OF WOUND, UNSPECIFIED, INITIAL ENCOUNTER SNOMED Code(s): 426243852 (2) Colonic diverticular abscess Current Visit: No Status: Acute Code(s): K57.20 - DVTRCLI OF LG INT W PERFORATION AND ABSCESS W/O BLEEDING SNOMED Code(s): 675601056 (3) Diverticulitis Current Visit: No Status: Acute Code(s): K57.92 - DVTRCLI OF INTEST, PART UNSP, W/O PERF OR ABSCESS W/O BLEED SNOMED Code(s): 699042303
--- NOTE | 2018-07-28 12:57 | P.PN ---
Subjective Progress Note Date: 07/28/18 This is a 72-year-old female patient who presented for an elective exploratory lap, lower anterior resection, takedown of splenic flexure and repair small incisional hernia with Dr. Washington. Patient is postop day 1. Patient has a known past medical history of diverticulitis with frequent flareups. Additional medical history includes breast cancer in 2004 with radiation and chemo, Osteoarthritis, Hypothyroidism and nicotine dependence. Patient currently has epidural in place. At this time pain is adequately controlled. Patient is on clear liquid diet. Patient denies any gas or bowel movements at this time. Midline dressing noted to have bloody drainage. Abdominal binder in place. This time patient denies chest pain or shortness of breath. Patient denies nausea vomiting or diarrhea. Patient denies any urinary burning or frequency. Nicotine patch will be ordered On 07/19/2018 patient currently postop day 2. patient is currently sitting up in chair eating clear liquid diet. Per patient she is passing gas. Patient currently states her shortness of breath is improved with breathing treatments. Vision started on Zithromax and Rocephin for antibiotics for possible pneumonia and UTI. Encouraged patient to continue walking and incentive spirometer use. On 07/20/2018 patient is currently postop day 2. Patient is currently sitting up in bed. Patient remains on clear liquid diet. Dr. Gomez has been consulted for pneumonia and urinary tract infection. patient remains on IV Rocephin and oral Zithromax. Patient does state some improvement with shortness of breath. This time patient denies chest pain or shortness breath patient denies nausea vomiting or diarrhea. Patient denies any urinary burning or frequency. On 07/21/2018 patient is currently postop day 3. Patient is currently sitting up in bed. Patient remains on clear liquid diet. Patient is still complaining of abdominal pain. Will order wound cultures at this time. Infectious disease is following. Patient is still having productive cough. Pulmonary services following. Denies chest pain or shortness breath. Patient denies nausea vomiting or diarrhea. Patient denies any urinary burning or frequency. Patient has not had bowel movement yet On 07/22/2018 patient is currently postop day 4. Patient is currently lying in bed. Patient has been advanced to a soft diet. Patient reports she had bowel movement last night. Patient is still complaining of significant abdominal pain. Wound cultures have been ordered. ID following. At this time patient states shortness of breath is improving. Patient denies chest pain. Patient denies any nausea or vomiting. Patient denies any urinary burning or frequency On 07/23/2018 patient is currently postop day 5. Patient is currently lying in bed. Patient has been tolerating diet. Patient did have a bowel movement yesterday. Patient is complaining of burning with urination. Patient is on Rocephin and Zithromax. Urine culture currently showing no growth. Infectious disease following. This time patient states shortness of breath is improving. Patient denies nausea vomiting or diarrhea. Patient denies chest pain. On 07/24/2018 patient is currently resting in bed. Discussed case with surgical service infectious planning to go back to the OR today with Dr. Washington for Dehiscence of abdominal wound. Patient remains on Zosyn for IV antibiotics. At this time patient states shortness of breath improved. Patient denies nausea vomiting or diarrhea. Patient denies urinary burning or frequency On 07/25/2018 patient is currently resting comfortably in bed. Patient is status post repair of wound dehiscece with Dr. Washington on 07/24/2018. Abdomen wound currently growing E. coli. Patient also having low-grade temps. Infectious disease is following. Antibiotics have been changed to meropenem and cultures have been ordered. At this time patient is complaining of some abdominal discomfort. Patient denies nausea vomiting or diarrhea. Patient denies any urinary burning or frequency. Denies chest pain or shortness of breath. On 07/26/2018 patient is currently resting in bed getting a breathing treatment. Patient is currently postop day 2 from post repair of wound dehiscence on 07/24/2018. Patient currently is PICC line in place remains on meropenem per infectious disease patient does state abdominal pain starting to subside. Patient denies chest pain or shortness breath. Patient denies nausea vomiting or diarrhea. Patient denies any urinary burning or frequency On 07/27/2018 patient is alert and oriented 3 in no apparent distress, she is sitting up in a chair, she is complaining of some abdominal discomfort, she stated that she had more than 10 bowel movements in the last 12 hours which is mostly liquid stool, otherwise she denies any complaints at this time. On 07/28/2018 patient is alert and oriented in no apparent distress she is complaining of cough with clear sputum production she is complaining of generalized abdominal pain otherwise no significant complaints there is no fever or chills no headache or dizziness no chest pain no shortness of breath no cough no nausea or vomiting and no urinary symptoms Objective - Vital Signs Vital signs: Vital Signs Temp 98.6 F 07/28/18 07:00 Pulse 68 07/28/18 12:41 Resp 22 07/28/18 08:00 BP 160/83 07/28/18 07:00 Pulse Ox 96 07/28/18 07:00 Intake & Output 07/27/18 07/28/18 07/28/18 18:59 06:59 18:59 Intake Total 1011 1884 Output Total 3050 500 Balance 1011 -1166 -500 Intake: IV 664 Mvi, Adult No.4 with Vit 664 K 10 ml Trace (Conc-1Ml/ Dose) 1 ml In Amino Acid 4.25%-D10w+Lytes*E* 1,000 ml @ 83 mls/hr IV .BY DURATION [facility] Rx#: [id number] Intake, IV Titration 1011 1220 Amount Amino Acid 4.25%-D10w+ 1000 Lytes*E* 1,000 ml @ 83 mls/hr IV .BY DURATION [facility] Rx#:[id number] Fat Emulsion 20% 250 ml @ 120 20.833 mls/hr IV DAILY@ 1600 [facility] Rx#:[id number] Meropenem 1 gm In Sodium 100 Chloride 0.9% 100 ml @ 200 mls/hr IVPB Q8HR [facility] Rx#:[id number] Mvi, Adult No.4 with Vit 1011 K 10 ml Trace (Conc-1Ml/ Dose) 1 ml In Amino Acid 4.25%-D10w+Lytes*E* 1,000 ml @ 83 mls/hr IV .BY DURATION [facility] Rx#: [id number] Output: Urine 2750 500 Urine/Stool Mix 300 Other: Voiding Method Bedside Commode # Voids 5 1 1 # Bowel Movements 1 1 - Exam Head normocephalic and atraumatic Neck supple no JVD no goiter Lungs diminished bilaterally. Left lower lobe crackles to auscultation Heart regular rate and rhythm S1-S2, no rub or gallop Abdomen Acitvbe bowel sounds. Abdominal dressing is clean dry and intact. Abdominal binder is in place Extremities no edema no cyanosis or clubbing Neuro alert and orientated to 3 - Labs CBC & Chem 7: 07/28/18 07:30 07/28/18 07:30 Labs: Abnormal Lab Results - Last 24 Hours (Table) 07/27/18 07/28/18 07/28/18 Range/Units 23:32 06:55 07:30 RBC (3.80-5.40) m/uL Hgb (11.4-16.0) gm/dL Sodium 136 L (137-145) mmol/L Creatinine 0.37 L (0.52-1.04) mg/dL Glucose 108 H (74-99) mg/dL POC Glucose (mg/dL) 117 H 106 H (75-99) mg/dL Total Protein 5.7 L (6.3-8.2) g/dL Albumin 2.8 L (3.5-5.0) g/dL 07/28/18 07/28/18 Range/Units 07:30 11:46 RBC 3.65 L (3.80-5.40) m/uL Hgb 11.1 L (11.4-16.0) gm/dL Sodium (137-145) mmol/L Creatinine (0.52-1.04) mg/dL Glucose (74-99) mg/dL POC Glucose (mg/dL) 116 H (75-99) mg/dL Total Protein (6.3-8.2) g/dL Albumin (3.5-5.0) g/dL Microbiology - Last 24 Hours (Table) 07/24/18 12:35 Blood Culture - Preliminary Blood No Growth after 72 hours Assessment and Plan Plan: 1. Status post exploratory lap, lower anterior resection, takedown of splenic flexure and repair a small incisional hernia with Dr. Washington. Wound culture currently going gram-negative bacilli. Infectious disease is following. Patient currently on Merropenem per infectious disease. Abdomen wound culture currently growing E. coli. Infectious disease following. New wound cultures have been ordered. Patient currently on meropenem for her IV antibiotic. Patient also having low-grade temps 2. History of diverticulitis 3. Nicotine dependence. Will order nicotine patch at this time. Patient educated greater than 3 minutes on smoking cessation 4. History of osteoarthritis 5. History of hypothyroidism. Synthroid resumed 6. History of breast cancer in 2004 with radiation and chemotherapy 7. Urinary tract infection. Patient started on Rocephin. Urine currently showing no growth. 8. pneumonia. Chest x-ray showing left lower infiltrate and small amount of free intraperitoneal air suspected. Per nursing staff Dr. Washington made aware of chest x-ray findings no new orders. Patient started on Zithromax and Rocephin IV antibiotics. Continue DuoNeb breathing treatment sputum culture ordered. Infectious disease following for pneumonia and UTI. Patient remains on IV Rocephin and oral azithromycin. Per pulmonary services doubt pneumonia. Continue aggressive pulmonary toileting and incentive spirometer. Chest x-ray completed showing clinical correlation recommended for left basilar infiltrate and/or small effusion 9. wound Dehiscence. Patient is currently status post repair of wound dehiscence with Dr. Washington. Patient is currently postop day 2. Patient currently clear liquid diet. PICC line placed per ID patient currently on IV nutrition and IV meropenem per infectious disease 10. Diarrhea Will obtain stools for C. diff DVT prophylaxis heparin. Incentive spirometer encouraged SCDs in place
[2018-07-28] MEDS: FAT EMULSION 20% 250 ML IV SCH (16:07)
[2018-07-28 18:15] LABS: Glucose,Whole Blood 114 mg/dL (75-99)
[2018-07-28 23:55] LABS: Glucose,Whole Blood 106 mg/dL (75-99)
--- NOTE | 2018-07-29 00:03 | PN ---
PROGRESS NOTE DATE OF SERVICE: 07/28/2018 REASON FOR FOLLOWUP: Abdominal wound dehiscence with secondary gram-negative infection. INTERVAL HISTORY: The patient is afebrile. She is breathing comfortably. Denies having any chest pain or shortness of breath or cough. Some abdominal discomfort. No nausea, vomiting or diarrhea. PHYSICAL EXAMINATION: Blood pressure 131/74, pulse of 82, temperature of 98.8. She is 95% on room air. General description is a an elderly female lying in bed in no distress. Respiratory system: Unlabored breathing. Clear to auscultation anteriorly. Heart S1, S2. Regular rate and rhythm. Abdomen soft. No tenderness. wound VAC. LABS: Hemoglobin 11.1, white count of 8.4, BUN of 12, creatinine 0.37. DIAGNOSTIC IMPRESSION AND PLAN: Patient with abdominal adhesions, wound culture positive for ESBL E coli. Patient currently covered with meropenem that will be transitioned to Invanz 1 g daily for another 10 days. Local care to continue with wound V.A.C. and close outpatient followup. Continue supportive care. MMODL / IJN: [id number] / AILIN
[2018-07-29] MEDS: HYDROmorphone 1 MG/ML 1 ML SYRINGE IVP PRN ×2 (04:10→08:46)
[2018-07-29] MEDS: HEPARIN SODIUM,PORCINE 5,000 UNIT/ML 1 ML VIAL SQ SCH ×3 (04:10→20:33)
[2018-07-29] MEDS: LEVOTHYROXINE 112 MCG TAB PO SCH (05:21)
[2018-07-29 05:28] LABS: Glucose,Whole Blood 117 mg/dL (75-99)
[2018-07-29] MEDS: MEROPENEM 1 GM in SODIUM CHLORIDE 0.9% 100 ML IVPB SCH ×3 (08:39→23:10)
[2018-07-29] MEDS: NICOTINE 14MG/24HR PATCH TRANSDERM SCH (08:44)
[2018-07-29] MEDS: traMADol 50 MG TAB PO PRN ×2 (08:44→19:08)
[2018-07-29] MEDS: FAMOTIDINE 20 MG TAB PO SCH ×2 (08:45→20:33)
[2018-07-29] MEDS: DEXTROSE 5%-0.45% NACL 1,000 ML IV SCH (08:45)
[2018-07-29] MEDS: MELOXICAM 7.5 MG TAB PO SCH (08:45)
[2018-07-29] MEDS: IPRATROPIUM-ALBUTEROL 3 ML NEB INHALATION SCH ×4 (08:46→19:29)
[2018-07-29 09:18] LABS: Basophils % (A) 0 %; Eosinophils # (A) 0.3 k/uL (0-0.7); Eosinophils % (A) 4 %; HCT 36.6 % (34.0-46.0); HGB 11.8 gm/dL (11.4-16.0); Lymphocytes # (A) 1.6 k/uL (1.0-4.8); Lymphocytes % (A) 20 %; MCH 30.5 pg (25.0-35.0); MCHC 32.3 g/dL (31.0-37.0); MCV 94.3 fL (80.0-100.0); Mean Platelet Volume 7.5; Monocytes # (A) 0.6 k/uL (0-1.0); Monocytes % (A) 7 %; Neutrophils # (A) 5.2 k/uL (1.3-7.7); Neutrophils % (A) 66 %; Platelet Count 385 k/uL (150-450); RBC 3.88 m/uL (3.80-5.40); RDW 13.4 % (11.5-15.5); WBC 7.8 k/uL (3.8-10.6)
[2018-07-29 09:43] LABS: ALT 34 U/L (9-52); AST 55 U/L (14-36); Albumin 3.1 g/dL (3.5-5.0); Alkaline Phosphatase 81 U/L (38-126); Anion Gap 8 mmol/L; Blood Urea Nitrogen 14 mg/dL (7-17); Calcium 9.1 mg/dL (8.4-10.2); Carbon Dioxide 27 mmol/L (22-30); Chloride 100 mmol/L (98-107); Glucose 100 mg/dL (74-99); Magnesium 2.3 mg/dL (1.6-2.3); Phosphorus 3.4 mg/dL (2.5-4.5); Potassium 4.7 mmol/L (3.5-5.1); Sodium 135 mmol/L (137-145); Total Bilirubin 0.2 mg/dL (0.2-1.3); Total Protein 6.1 g/dL (6.3-8.2)
--- NOTE | 2018-07-29 11:00 | P.PN ---
Subjective Progress Note Date: 07/29/18 This is a 72-year-old female patient who presented for an elective exploratory lap, lower anterior resection, takedown of splenic flexure and repair small incisional hernia with Dr. Washington. Patient is postop day 1. Patient has a known past medical history of diverticulitis with frequent flareups. Additional medical history includes breast cancer in 2004 with radiation and chemo, Osteoarthritis, Hypothyroidism and nicotine dependence. Patient currently has epidural in place. At this time pain is adequately controlled. Patient is on clear liquid diet. Patient denies any gas or bowel movements at this time. Midline dressing noted to have bloody drainage. Abdominal binder in place. This time patient denies chest pain or shortness of breath. Patient denies nausea vomiting or diarrhea. Patient denies any urinary burning or frequency. Nicotine patch will be ordered On 07/19/2018 patient currently postop day 2. patient is currently sitting up in chair eating clear liquid diet. Per patient she is passing gas. Patient currently states her shortness of breath is improved with breathing treatments. Vision started on Zithromax and Rocephin for antibiotics for possible pneumonia and UTI. Encouraged patient to continue walking and incentive spirometer use. On 07/20/2018 patient is currently postop day 2. Patient is currently sitting up in bed. Patient remains on clear liquid diet. Dr. Gomez has been consulted for pneumonia and urinary tract infection. patient remains on IV Rocephin and oral Zithromax. Patient does state some improvement with shortness of breath. This time patient denies chest pain or shortness breath patient denies nausea vomiting or diarrhea. Patient denies any urinary burning or frequency. On 07/21/2018 patient is currently postop day 3. Patient is currently sitting up in bed. Patient remains on clear liquid diet. Patient is still complaining of abdominal pain. Will order wound cultures at this time. Infectious disease is following. Patient is still having productive cough. Pulmonary services following. Denies chest pain or shortness breath. Patient denies nausea vomiting or diarrhea. Patient denies any urinary burning or frequency. Patient has not had bowel movement yet On 07/22/2018 patient is currently postop day 4. Patient is currently lying in bed. Patient has been advanced to a soft diet. Patient reports she had bowel movement last night. Patient is still complaining of significant abdominal pain. Wound cultures have been ordered. ID following. At this time patient states shortness of breath is improving. Patient denies chest pain. Patient denies any nausea or vomiting. Patient denies any urinary burning or frequency On 07/23/2018 patient is currently postop day 5. Patient is currently lying in bed. Patient has been tolerating diet. Patient did have a bowel movement yesterday. Patient is complaining of burning with urination. Patient is on Rocephin and Zithromax. Urine culture currently showing no growth. Infectious disease following. This time patient states shortness of breath is improving. Patient denies nausea vomiting or diarrhea. Patient denies chest pain. On 07/24/2018 patient is currently resting in bed. Discussed case with surgical service infectious planning to go back to the OR today with Dr. Washington for Dehiscence of abdominal wound. Patient remains on Zosyn for IV antibiotics. At this time patient states shortness of breath improved. Patient denies nausea vomiting or diarrhea. Patient denies urinary burning or frequency On 07/25/2018 patient is currently resting comfortably in bed. Patient is status post repair of wound dehiscece with Dr. Washington on 07/24/2018. Abdomen wound currently growing E. coli. Patient also having low-grade temps. Infectious disease is following. Antibiotics have been changed to meropenem and cultures have been ordered. At this time patient is complaining of some abdominal discomfort. Patient denies nausea vomiting or diarrhea. Patient denies any urinary burning or frequency. Denies chest pain or shortness of breath. On 07/26/2018 patient is currently resting in bed getting a breathing treatment. Patient is currently postop day 2 from post repair of wound dehiscence on 07/24/2018. Patient currently is PICC line in place remains on meropenem per infectious disease patient does state abdominal pain starting to subside. Patient denies chest pain or shortness breath. Patient denies nausea vomiting or diarrhea. Patient denies any urinary burning or frequency On 07/27/2018 patient is alert and oriented 3 in no apparent distress, she is sitting up in a chair, she is complaining of some abdominal discomfort, she stated that she had more than 10 bowel movements in the last 12 hours which is mostly liquid stool, otherwise she denies any complaints at this time. On 07/28/2018 patient is alert and oriented in no apparent distress she is complaining of cough with clear sputum production she is complaining of generalized abdominal pain otherwise no significant complaints there is no fever or chills no headache or dizziness no chest pain no shortness of breath no cough no nausea or vomiting and no urinary symptoms On 07/29/2018 patient is alert and oriented 3. Patient is still having cough with clear sputum production. Patient is still complaining of some generalized abdominal pain. Wound VAC currently in place. Patient denies chest pain or shortness breath. Denies any urinary burning or frequency. Patient remains on IV TPN at this time. Objective - Vital Signs Vital signs: Vital Signs Temp 97.7 F 07/29/18 07:00 Pulse 80 07/29/18 09:00 Resp 18 07/29/18 07:00 BP 131/80 07/29/18 07:00 Pulse Ox 95 07/29/18 00:30 Intake & Output 07/28/18 07/29/18 07/29/18 18:59 06:59 18:59 Intake Total 1011 980 Output Total 1010 Balance 1 980 Weight 59.874 kg Intake: Intake, IV Titration 1011 500 Amount Dextrose 5%-0.45% NaCl 1, 500 000 ml @ 50 mls/hr IV . Q20H GIL[facility]O Rx#:[id number] Mvi, Adult No.4 with Vit 1011 K 10 ml Trace (Conc-1Ml/ Dose) 1 ml In Amino Acid 4.25%-D10w+Lytes*E* 1,000 ml @ 83 mls/hr IV .BY DURATION GILBERTO Rx#: [id number] Oral 480 Output: Drainage 0 Abdomen 0 Urine 1000 Stool 10 Other: # Voids 5 5 # Bowel Movements 1 2 - Exam Head normocephalic Neck supple Lungs diminished bilaterally. Left lower lobe crackles to auscultation Heart regular rate and rhythm S1-S2, no rub or gallop Abdomen Acitvbe bowel sounds. Abdominal dressing is clean dry and intact. Abdominal binder is in place Extremities no edema Neuro alert and orientated to 3 - Labs CBC & Chem 7: 07/29/18 08:09 07/29/18 08:09 Labs: Abnormal Lab Results - Last 24 Hours (Table) 07/28/18 07/28/18 07/28/18 Range/Units 11:46 18:11 23:52 Sodium (137-145) mmol/L Creatinine (0.52-1.04) mg/dL Glucose (74-99) mg/dL POC Glucose (mg/dL) 116 H 114 H 106 H (75-99) mg/dL AST (14-36) U/L Total Protein (6.3-8.2) g/dL Albumin (3.5-5.0) g/dL 07/29/18 07/29/18 Range/Units 05:23 08:09 Sodium 135 L (137-145) mmol/L Creatinine 0.38 L (0.52-1.04) mg/dL Glucose 100 H (74-99) mg/dL POC Glucose (mg/dL) 117 H (75-99) mg/dL AST 55 H (14-36) U/L Total Protein 6.1 L (6.3-8.2) g/dL Albumin 3.1 L (3.5-5.0) g/dL Microbiology - Last 24 Hours (Table) 07/24/18 16:24 Anaerobic Culture - Final Abdomen 07/24/18 12:35 Blood Culture - Preliminary Blood No Growth after 96 hours Assessment and Plan Assessment: 1. Status post exploratory lap, lower anterior resection, takedown of splenic flexure and repair a small incisional hernia with Dr. Washington. Wound culture currently going gram-negative bacilli. Infectious disease is following. Patient currently on Merropenem per infectious disease. Abdomen wound culture currently growing E. coli. Infectious disease following. New wound cultures have been ordered. Patient currently on meropenem for her IV antibiotic. Patient also having low-grade temps. Per infectious disease patient currently covered with meropenem and will be transitioned to IV and 1 g daily for another 10 days local care to continue with wound VAC and close outpatient follow-up. 2. History of diverticulitis 3. Nicotine dependence. Will order nicotine patch at this time. Patient educated greater than 3 minutes on smoking cessation 4. History of osteoarthritis 5. History of hypothyroidism. Synthroid resumed 6. History of breast cancer in 2004 with radiation and chemotherapy 7. Urinary tract infection. Patient started on Rocephin. Urine currently showing no growth. 8. pneumonia. Chest x-ray showing left lower infiltrate and small amount of free intraperitoneal air suspected. Per nursing staff Dr. Washington made aware of chest x-ray findings no new orders. Patient started on Zithromax and Rocephin IV antibiotics. Continue DuoNeb breathing treatment sputum culture ordered. Infectious disease following for pneumonia and UTI. Patient remains on IV Rocephin and oral azithromycin. Per pulmonary services doubt pneumonia. Continue aggressive pulmonary toileting and incentive spirometer. Chest x-ray completed showing clinical correlation recommended for left basilar infiltrate and/or small effusion 9. wound Dehiscence. Patient is currently status post repair of wound dehiscence with Dr. Washington. Patient is currently postop day 2. Patient currently clear liquid diet. PICC line placed per ID patient currently on IV nutrition and IV meropenem per infectious disease 10. Diarrhea Will obtain stools for C. diff. C. diff negative. DVT prophylaxis heparin. Incentive spirometer encouraged SCDs in place I performed an examination of the patient and discussed their management with the Nurse Practitioner. I have reviewed the Nurse Practitioner's notes and agree with the documented findings and plan of care
[2018-07-29] MEDS: guaiFENesin 600 MG TABLET.ER PO PRN (11:40)
[2018-07-29 12:10] LABS: Glucose,Whole Blood 113 mg/dL (75-99)
[2018-07-29] MEDS: 1: MVI, ADULT NO.4 WITH VIT K 10 ML, TRACE (CONC-1ML/DOSE) 1 ML in AMINO ACID 4.25%-D10W IV SCH ×3 (12:19)
--- NOTE | 2018-07-29 14:46 | P.PN ---
Subjective Progress Note Date: 07/29/18 73-year-old female seen up ambulating standby assist in the hallway states is hungry denies nausea vomiting passing gas states had a bowel movement tolerating diet. The wound VAC system is in place. Denies dizziness lightheadedness shortness of breath or chest pain with activity.patient states anxious to be discharged plans on going home with the with home health Objective - Vital Signs Vital signs: Vital Signs Temp 97.7 F 07/29/18 07:00 Pulse 82 07/29/18 12:40 Resp 18 07/29/18 07:00 BP 131/80 07/29/18 07:00 Pulse Ox 95 07/29/18 00:30 Intake & Output 07/28/18 07/29/18 07/29/18 18:59 06:59 18:59 Intake Total 1011 980 Output Total 1010 Balance 1 980 Weight 59.874 kg 59.874 kg Intake: Intake, IV Titration 1011 500 Amount Dextrose 5%-0.45% NaCl 1, 500 000 ml @ 50 mls/hr IV . Q20H [facility] Rx#:[id number] Mvi, Adult No.4 with Vit 1011 K 10 ml Trace (Conc-1Ml/ Dose) 1 ml In Amino Acid 4.25%-D10w+Lytes*E* 1,000 ml @ 83 mls/hr IV .BY DURATION [facility] Rx#: [id number] Oral 480 Output: Drainage 0 Abdomen 0 Urine 1000 Stool 10 Other: # Voids 5 5 # Bowel Movements 1 2 - Exam Physical exam 73-year-old female up ambulating with use of a walker standby assist gait steady is dizziness lightheadedness chest pain or shortness of breath Lungs adequate air movement bilaterally Heart S1-S2 regular Abdominal binder in place. Surgical tenderness appropriate qamar in place suture line well approximately TPN infusingstates is hungry states had a bowel movement this morning urinating no difficulty nondistended Extremities no edema - Labs CBC & Chem 7: 07/29/18 08:09 07/29/18 08:09 Labs: Abnormal Lab Results - Last 24 Hours (Table) 07/28/18 07/28/18 07/29/18 Range/Units 18:11 23:52 05:23 Sodium (137-145) mmol/L Creatinine (0.52-1.04) mg/dL Glucose (74-99) mg/dL POC Glucose (mg/dL) 114 H 106 H 117 H (75-99) mg/dL AST (14-36) U/L Total Protein (6.3-8.2) g/dL Albumin (3.5-5.0) g/dL 07/29/18 07/29/18 Range/Units 08:09 12:08 Sodium 135 L (137-145) mmol/L Creatinine 0.38 L (0.52-1.04) mg/dL Glucose 100 H (74-99) mg/dL POC Glucose (mg/dL) 113 H (75-99) mg/dL AST 55 H (14-36) U/L Total Protein 6.1 L (6.3-8.2) g/dL Albumin 3.1 L (3.5-5.0) g/dL Microbiology - Last 24 Hours (Table) 07/24/18 16:24 Anaerobic Culture - Final Abdomen 07/24/18 12:35 Blood Culture - Preliminary Blood No Growth after 96 hours Assessment and Plan Assessment: Impression Present on admission small incisional hernia Status post July 17 exploratory laparotomy, low anterior resection, takedown of splenic flexure, repair of small incisional hernia for diverticulitis Chronic left lower quadrant abdominal pain suspect due to diverticulitis History of breast cancer 2005 received chemotherapy and radiation Current every day smoker Chest x-ray obtained July 19 report indicates left lower lobe infiltrate Present on admission UTI 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 Lori Ortez nurse practitioner acting as scribe for signing physician.
[2018-07-29] MEDS: FAT EMULSION 20% 250 ML IV SCH (15:16)
[2018-07-29 17:33] LABS: Glucose,Whole Blood 103 mg/dL (75-99)
--- NOTE | 2018-07-29 22:30 | PN ---
PROGRESS NOTE DATE OF SERVICE: 07/29/2018 REASON FOR FOLLOWUP: Abdominal wound dehiscence with secondary infection. INTERVAL HISTORY: The patient is currently afebrile. Her abdominal pain has improved. Oral intake has improved as well. The patient denies having any chest pain or shortness of breath or cough. No worsening abdominal pain or diarrhea. PHYSICAL EXAMINATION: Blood pressure is 122/75 with a pulse of 79, temperature 97.5. She is 97% on room air. General description is an elderly female lying in bed in no distress. RESPIRATORY SYSTEM: Unlabored breathing. Clear to auscultation anteriorly. HEART: S1, S2. Regular rate and rhythm. ABDOMEN: Soft. No tenderness. EXTREMITIES: No edema of the feet. LABS: Hemoglobin is 11.9, white count 7.8. BUN of 14, creatinine 0.38. DIAGNOSTIC IMPRESSION AND PLAN: Patient with extended-spectrum beta-lactamase Escherichia coli abdominal wall incision infection, status post debridement and abdominal wound currently being treated with a wound V.A.C., to continue in the outpatient setting. The patient is currently on meropenem. That will be transitioned to Invanz 1 gram daily for another 10 days with close outpatient followup. Continue supportive care. MMODL / IJN: [id number] /
[2018-07-30] LABS: Glucose,Whole Blood 94 mg/dL (75-99)
[2018-07-30] MEDS: 1: MVI, ADULT NO.4 WITH VIT K 10 ML, TRACE (CONC-1ML/DOSE) 1 ML in AMINO ACID 4.25%-D10W IV SCH ×6 (00:38→12:15)
[2018-07-30] MEDS: DEXTROSE 5%-0.45% NACL 1,000 ML IV SCH ×2 (03:56→13:13)
[2018-07-30] MEDS: HEPARIN SODIUM,PORCINE 5,000 UNIT/ML 1 ML VIAL SQ SCH ×3 (03:56→19:39)
[2018-07-30] MEDS: LEVOTHYROXINE 112 MCG TAB PO SCH (05:03)
[2018-07-30 05:33] LABS: Glucose,Whole Blood 95 mg/dL (75-99)
[2018-07-30] MEDS: ONDANSETRON 4 MG/2 ML VIAL IVP PRN (07:20)
[2018-07-30] MEDS: guaiFENesin 600 MG TABLET.ER PO PRN (07:20)
[2018-07-30] MEDS: IPRATROPIUM-ALBUTEROL 3 ML NEB INHALATION SCH ×4 (07:33→19:56)
[2018-07-30] MEDS: MEROPENEM 1 GM in SODIUM CHLORIDE 0.9% 100 ML IVPB SCH ×3 (08:37→23:07)
[2018-07-30] MEDS: MELOXICAM 7.5 MG TAB PO SCH (08:37)
[2018-07-30] MEDS: FAMOTIDINE 20 MG TAB PO SCH ×2 (08:37→19:39)
[2018-07-30] MEDS: NICOTINE 14MG/24HR PATCH TRANSDERM SCH (08:38)
[2018-07-30 09:01] LABS: Basophils # (A) 0.1 k/uL (0-0.2); Basophils % (A) 1 %; Eosinophils # (A) 0.3 k/uL (0-0.7); Eosinophils % (A) 3 %; HCT 37.4 % (34.0-46.0); HGB 11.9 gm/dL (11.4-16.0); Lymphocytes # (A) 1.6 k/uL (1.0-4.8); Lymphocytes % (A) 16 %; MCHC 31.8 g/dL (31.0-37.0); MCV 94.5 fL (80.0-100.0); Mean Platelet Volume 6.8; Monocytes # (A) 0.4 k/uL (0-1.0); Monocytes % (A) 4 %; Neutrophils # (A) 7.5 k/uL (1.3-7.7); Neutrophils % (A) 75 %; Platelet Count 373 k/uL (150-450); RBC 3.96 m/uL (3.80-5.40); RDW 13.5 % (11.5-15.5); WBC 9.9 k/uL (3.8-10.6)
--- NOTE | 2018-07-30 09:10 | XR ---
EXAMINATION TYPE: XR chest 2V DATE OF EXAM: 07/30/2018 COMPARISON: 07/28/2018 HISTORY: 73-year-old female productive cough TECHNIQUE: PA and lateral views FINDINGS: Severe S-shaped scoliosis. Heart normal size. Atherosclerotic arch calcifications. Left PICC tip at t he lower SVC. Surgical clips in the right axilla. There is patchy retrocardiac opacity noted. No pleu ral effusion. IMPRESSION: Patchy retrocardiac atelectasis versus infiltrate. Severe S-shaped scoliosis.
[2018-07-30 09:12] LABS: Anion Gap 8 mmol/L; Blood Urea Nitrogen 11 mg/dL (7-17); Calcium 9.4 mg/dL (8.4-10.2); Carbon Dioxide 25 mmol/L (22-30); Chloride 99 mmol/L (98-107); Glucose 101 mg/dL (74-99); Magnesium 2.3 mg/dL (1.6-2.3); Potassium 4.8 mmol/L (3.5-5.1); Sodium 132 mmol/L (137-145)
[2018-07-30 11:38] LABS: Glucose,Whole Blood 107 mg/dL (75-99)
[2018-07-30] MEDS: FAT EMULSION 20% 250 ML IV SCH (12:15)
--- NOTE | 2018-07-30 14:42 | P.PN ---
Subjective Progress Note Date: 07/30/18 This is a 72-year-old female patient who presented for an elective exploratory lap, lower anterior resection, takedown of splenic flexure and repair small incisional hernia with Dr. Washington. Patient is postop day 1. Patient has a known past medical history of diverticulitis with frequent flareups. Additional medical history includes breast cancer in 2004 with radiation and chemo, Osteoarthritis, Hypothyroidism and nicotine dependence. Patient currently has epidural in place. At this time pain is adequately controlled. Patient is on clear liquid diet. Patient denies any gas or bowel movements at this time. Midline dressing noted to have bloody drainage. Abdominal binder in place. This time patient denies chest pain or shortness of breath. Patient denies nausea vomiting or diarrhea. Patient denies any urinary burning or frequency. Nicotine patch will be ordered On 07/19/2018 patient currently postop day 2. patient is currently sitting up in chair eating clear liquid diet. Per patient she is passing gas. Patient currently states her shortness of breath is improved with breathing treatments. Vision started on Zithromax and Rocephin for antibiotics for possible pneumonia and UTI. Encouraged patient to continue walking and incentive spirometer use. On 07/20/2018 patient is currently postop day 2. Patient is currently sitting up in bed. Patient remains on clear liquid diet. Dr. Gomez has been consulted for pneumonia and urinary tract infection. patient remains on IV Rocephin and oral Zithromax. Patient does state some improvement with shortness of breath. This time patient denies chest pain or shortness breath patient denies nausea vomiting or diarrhea. Patient denies any urinary burning or frequency. On 07/21/2018 patient is currently postop day 3. Patient is currently sitting up in bed. Patient remains on clear liquid diet. Patient is still complaining of abdominal pain. Will order wound cultures at this time. Infectious disease is following. Patient is still having productive cough. Pulmonary services following. Denies chest pain or shortness breath. Patient denies nausea vomiting or diarrhea. Patient denies any urinary burning or frequency. Patient has not had bowel movement yet On 07/22/2018 patient is currently postop day 4. Patient is currently lying in bed. Patient has been advanced to a soft diet. Patient reports she had bowel movement last night. Patient is still complaining of significant abdominal pain. Wound cultures have been ordered. ID following. At this time patient states shortness of breath is improving. Patient denies chest pain. Patient denies any nausea or vomiting. Patient denies any urinary burning or frequency On 07/23/2018 patient is currently postop day 5. Patient is currently lying in bed. Patient has been tolerating diet. Patient did have a bowel movement yesterday. Patient is complaining of burning with urination. Patient is on Rocephin and Zithromax. Urine culture currently showing no growth. Infectious disease following. This time patient states shortness of breath is improving. Patient denies nausea vomiting or diarrhea. Patient denies chest pain. On 07/24/2018 patient is currently resting in bed. Discussed case with surgical service infectious planning to go back to the OR today with Dr. Washington for Dehiscence of abdominal wound. Patient remains on Zosyn for IV antibiotics. At this time patient states shortness of breath improved. Patient denies nausea vomiting or diarrhea. Patient denies urinary burning or frequency On 07/25/2018 patient is currently resting comfortably in bed. Patient is status post repair of wound dehiscece with Dr. Washington on 07/24/2018. Abdomen wound currently growing E. coli. Patient also having low-grade temps. Infectious disease is following. Antibiotics have been changed to meropenem and cultures have been ordered. At this time patient is complaining of some abdominal discomfort. Patient denies nausea vomiting or diarrhea. Patient denies any urinary burning or frequency. Denies chest pain or shortness of breath. On 07/26/2018 patient is currently resting in bed getting a breathing treatment. Patient is currently postop day 2 from post repair of wound dehiscence on 07/24/2018. Patient currently is PICC line in place remains on meropenem per infectious disease patient does state abdominal pain starting to subside. Patient denies chest pain or shortness breath. Patient denies nausea vomiting or diarrhea. Patient denies any urinary burning or frequency On 07/27/2018 patient is alert and oriented 3 in no apparent distress, she is sitting up in a chair, she is complaining of some abdominal discomfort, she stated that she had more than 10 bowel movements in the last 12 hours which is mostly liquid stool, otherwise she denies any complaints at this time. On 07/28/2018 patient is alert and oriented in no apparent distress she is complaining of cough with clear sputum production she is complaining of generalized abdominal pain otherwise no significant complaints there is no fever or chills no headache or dizziness no chest pain no shortness of breath no cough no nausea or vomiting and no urinary symptoms On 07/29/2018 patient is alert and oriented 3. Patient is still having cough with clear sputum production. Patient is still complaining of some generalized abdominal pain. Wound VAC currently in place. Patient denies chest pain or shortness breath. Denies any urinary burning or frequency. Patient remains on IV TPN at this time. On 07/30/2018 patient is alert and oriented 3. Patient states she feels somewhat improved. Patient does state she has been up walking more and using her incentive spirometer. Patient is planning to be DC'd in the next 24-48 hours with wound VAC. Per IDs note recommending IV Invanz. Patient does have PICC line in place. Patient denies chest pain or shortness of breath. Patient denies nausea vomiting or diarrhea. Patient denies any urinary burning or frequency Objective - Vital Signs Vital signs: Vital Signs Temp 98.2 F 07/30/18 07:00 Pulse 82 07/30/18 11:51 Resp 16 07/30/18 07:00 BP 123/78 07/30/18 07:00 Pulse Ox 95 07/30/18 07:00 Intake & Output 07/29/18 07/30/18 07/30/18 18:59 06:59 18:59 Intake Total 0 Balance 0 Weight 59.874 kg Intake: Oral 0 Other: Voiding Method Bedside Commode # Voids 2 5 - Exam Head normocephalic Neck supple Lungs diminished bilaterally. Left lower lobe crackles to auscultation Heart regular rate and rhythm S1-S2, no rub or gallop Abdomen Acitvbe bowel sounds. Abdominal dressing is clean dry and intact. Abdominal binder is in place. Wound VAC in place Extremities no edema Neuro alert and orientated to 3 - Labs CBC & Chem 7: 07/30/18 08:29 07/30/18 08:29 Labs: Abnormal Lab Results - Last 24 Hours (Table) 07/29/18 07/30/18 07/30/18 Range/Units 17:29 08:29 11:33 Sodium 132 L (137-145) mmol/L Creatinine 0.44 L (0.52-1.04) mg/dL Glucose 101 H (74-99) mg/dL POC Glucose (mg/dL) 103 H 107 H (75-99) mg/dL Microbiology - Last 24 Hours (Table) 07/24/18 12:35 Blood Culture - Preliminary Blood No Growth after 120 hours Assessment and Plan Assessment: 1. Status post exploratory lap, lower anterior resection, takedown of splenic flexure and repair a small incisional hernia with Dr. Washington. Wound culture currently going gram-negative bacilli. Infectious disease is following. Patient currently on Merropenem per infectious disease. Abdomen wound culture currently growing E. coli. Infectious disease following. New wound cultures have been ordered. Patient currently on meropenem for her IV antibiotic. Patient also having low-grade temps. Per infectious disease patient currently covered with meropenem and will be transitioned to IV and 1 g daily for another 10 days local care to continue with wound VAC and close outpatient follow-up. Patient currently on regular diet 2. History of diverticulitis 3. Nicotine dependence. Will order nicotine patch at this time. Patient educated greater than 3 minutes on smoking cessation 4. History of osteoarthritis 5. History of hypothyroidism. Synthroid resumed 6. History of breast cancer in 2004 with radiation and chemotherapy 7. Urinary tract infection. Patient started on Rocephin. Urine currently showing no growth. 8. pneumonia. Chest x-ray showing left lower infiltrate and small amount of free intraperitoneal air suspected. Per nursing staff Dr. Washington made aware of chest x-ray findings no new orders. Patient started on Zithromax and Rocephin IV antibiotics. Continue DuoNeb breathing treatment sputum culture ordered. Infectious disease following for pneumonia and UTI. Patient remains on IV Rocephin and oral azithromycin. Per pulmonary services doubt pneumonia. Continue aggressive pulmonary toileting and incentive spirometer. Chest x-ray completed showing clinical correlation recommended for left basilar infiltrate and/or small effusion. Pulmonary services reconsulted. Per pulmonary services continue incentive spirometer, bronchodilators, early ambulation. At this point no need for thoracentesis patient becomes symptomatic with consider ultrasound of chest and thoracentesis. 9. wound Dehiscence. Patient is currently status post repair of wound dehiscence with Dr. Washington. Patient is currently postop day 5. Patient currently clear liquid diet. PICC line placed per ID patient currently on IV nutrition and IV meropenem per infectious disease. Per infectious disease patient to be DC'd on Invanz 10. Diarrhea Will obtain stools for C. diff. C. diff negative. DVT prophylaxis heparin. Incentive spirometer encouraged SCDs in place I performed an examination of the patient and discussed their management with the Nurse Practitioner. I have reviewed the Nurse Practitioner's notes and agree with the documented findings and plan of care
--- NOTE | 2018-07-30 18:15 | P.PN ---
Progress Note - Text Progress Note Date: 07/30/18 the patient is resting comfo her bed. Apparently she has had some roproblems coughing. On exam her vital signs arestable. Abdomen is soft.wound VAC is in place. The patient is doing well. aanticipate discharge home tomorrow.
[2018-07-30] MEDS: BENZOCAINE/MENTHOL LOZENG 1 EACH LOZENGE MUCOUS MEM PRN (19:43)
--- NOTE | 2018-07-30 23:44 | PN ---
PROGRESS NOTE DATE OF SERVICE: 07/30/2018. REASON FOR FOLLOWUP: Abdominal wound dehiscence with ESBL E coli infection. INTERVAL HISTORY: The patient is afebrile. She was slightly upset that she was supposed to go home today. However ended up not going home. Denies any chest pain or shortness of breath, no cough. No nausea, vomiting, abdominal pain has improved. No diarrhea. PHYSICAL EXAMINATION: Blood pressure 111/72 with a pulse of 85, temperature 97.7. She is 94% on room air. General description is an elderly female lying in bed in no distress. Respiratory system: Unlabored breathing. Clear to auscultation anteriorly. Heart S1, S2. Regular rate and rhythm. ABDOMEN: Soft, no tenderness. LABS: Hemoglobin is 11.8, white of 9.9, BUN of 11, creatinine 0.44. DIAGNOSTIC IMPRESSION AND PLAN: Patient with abdominal wound dehiscence with secondary infection with ESBL E. coli. Patient is currently covered with meropenem, transition to Invanz 1 g daily for another 10 days. Local care to continue with wound V.A.C. and follow up with the wound care center. Continue supportive care. MMODL / IJN: [id number] /
[2018-07-31] MEDS: HEPARIN SODIUM,PORCINE 5,000 UNIT/ML 1 ML VIAL SQ SCH ×2 (05:46→13:52)
[2018-07-31] MEDS: LEVOTHYROXINE 112 MCG TAB PO SCH (05:47)
[2018-07-31] MEDS: DEXTROSE 5%-0.45% NACL 1,000 ML IV SCH (05:47)
[2018-07-31] MEDS: traMADol 50 MG TAB PO PRN (05:52)
[2018-07-31] MEDS: IPRATROPIUM-ALBUTEROL 3 ML NEB INHALATION SCH ×2 (08:04→11:59)
[2018-07-31 08:08] VITALS: BP 130/73; RESP 16; TEMP 98.3
[2018-07-31 08:17] VITALS: PULSE 80
[2018-07-31] MEDS: MEROPENEM 1 GM in SODIUM CHLORIDE 0.9% 100 ML IVPB SCH (08:39)
[2018-07-31] MEDS: NICOTINE 14MG/24HR PATCH TRANSDERM SCH (08:39)
[2018-07-31] MEDS: MELOXICAM 7.5 MG TAB PO SCH (08:39)
[2018-07-31] MEDS: FAMOTIDINE 20 MG TAB PO SCH (08:39)
[2018-07-31 09:53] LABS: Basophils % (A) 0 %; Eosinophils # (A) 0.2 k/uL (0-0.7); Eosinophils % (A) 2 %; HCT 37.3 % (34.0-46.0); HGB 11.8 gm/dL (11.4-16.0); Lymphocytes # (A) 1.7 k/uL (1.0-4.8); Lymphocytes % (A) 19 %; MCH 29.6 pg (25.0-35.0); MCHC 31.6 g/dL (31.0-37.0); MCV 93.5 fL (80.0-100.0); Mean Platelet Volume 7.2; Monocytes # (A) 0.6 k/uL (0-1.0); Monocytes % (A) 7 %; Neutrophils # (A) 5.9 k/uL (1.3-7.7); Neutrophils % (A) 68 %; Platelet Count 433 k/uL (150-450); RBC 3.99 m/uL (3.80-5.40); RDW 13.7 % (11.5-15.5); WBC 8.7 k/uL (3.8-10.6)
[2018-07-31 10:03] LABS: Anion Gap 9 mmol/L; Blood Urea Nitrogen 10 mg/dL (7-17); Calcium 9.5 mg/dL (8.4-10.2); Carbon Dioxide 27 mmol/L (22-30); Chloride 99 mmol/L (98-107); Glucose 104 mg/dL (74-99); Magnesium 2.3 mg/dL (1.6-2.3); Phosphorus 2.9 mg/dL (2.5-4.5); Potassium 4.5 mmol/L (3.5-5.1); Sodium 135 mmol/L (137-145)
[2018-07-31] MEDS ORDERED: ERTAPENEM 1 GM in SODIUM CHLORIDE 0.9% 50 ML IVPB STA (11:15)
--- NOTE | 2018-07-31 12:19 | P.DS ---
Providers Date of admission: 07/17/18 10:26 Expected date of discharge: 07/31/18 Attending physician: Rustam Washington Consults: 07/17/18 15:05 Consult Physician Routine Consulting Provider: Guillaume Estes Consult Reason/Comments: Medical management Do you want consulting provider notified?: Yes 07/19/18 13:36 Consult Physician Routine Consulting Provider: Zackary Worthy Consult Reason/Comments: pneumonia Do you want consulting provider notified?: Yes 07/19/18 15:56 Consult Physician Routine Consulting Provider: Landy Gomez Consult Reason/Comments: pneumonia UTI Do you want consulting provider notified?: Yes 07/26/18 13:29 Consult Physician Routine Consulting Provider: Kenneth Gee Consult Reason/Comments: chest xray Do you want consulting provider notified?: Yes Primary care physician: Guillaume Estes [facility] Course: Discharge diagnosis 1. Status post exploratory lap, lower anterior resection, takedown of splenic flexure and repair a small incisional hernia with Dr. Washington. Wound culture currently going gram-negative bacilli. Infectious disease is following. Patient currently on Merropenem per infectious disease. Abdomen wound culture currently growing E. coli. Infectious disease following. New wound cultures have been ordered. Patient currently on meropenem for her IV antibiotic. Patient also having low-grade temps. Per infectious disease patient currently covered with meropenem and will be transitioned to Invanz and 1 g daily for another 10 days local care to continue with wound VAC and close outpatient follow-up. Patient currently on regular diet. Patient has been cleared for discharge from surgical infectious disease services 2. History of diverticulitis 3. Nicotine dependence. Will order nicotine patch at this time. Patient educated greater than 3 minutes on smoking cessation. She'll be DC'd home on nicotine patch 4. History of osteoarthritis 5. History of hypothyroidism. Synthroid resumed 6. History of breast cancer in 2004 with radiation and chemotherapy 7. Urinary tract infection. Patient started on Rocephin. Urine currently showing no growth. 8. pneumonia. Chest x-ray showing left lower infiltrate and small amount of free intraperitoneal air suspected. Per nursing staff Dr. Washington made aware of chest x-ray findings no new orders. Patient started on Zithromax and Rocephin IV antibiotics. Continue DuoNeb breathing treatment sputum culture ordered. Infectious disease following for pneumonia and UTI. Patient remains on IV Rocephin and oral azithromycin. Per pulmonary services doubt pneumonia. Continue aggressive pulmonary toileting and incentive spirometer. Chest x-ray completed showing clinical correlation recommended for left basilar infiltrate and/or small effusion. Pulmonary services reconsulted. Per pulmonary services continue incentive spirometer, bronchodilators, early ambulation. At this point no need for thoracentesis patient becomes symptomatic with consider ultrasound of chest and thoracentesis. Patient states breathing and congestion is much improved. Has been cleared for discharge from pulmonary standpoint 9. wound Dehiscence. Patient is currently status post repair of wound dehiscence with Dr. Washington. Patient is currently postop day 5. Patient currently clear liquid diet. PICC line placed per ID patient currently on IV nutrition and IV meropenem per infectious disease. Per infectious disease patient to be DC'd on Invanz. Patient to be DC'd home with home health care and Invanz IV antibiotic. Patient follow-up outpatient with Dr. Gomez 10. Diarrhea Will obtain stools for C. diff. C. diff negative. Hospital course This is a 72-year-old female patient who presented for an elective exploratory lap, lower anterior resection, takedown of splenic flexure and repair small incisional hernia with Dr. Washington. Patient is postop day 1. Patient has a known past medical history of diverticulitis with frequent flareups. Additional medical history includes breast cancer in 2004 with radiation and chemo, Osteoarthritis, Hypothyroidism and nicotine dependence. Patient currently has epidural in place. At this time pain is adequately controlled. Patient is on clear liquid diet. Patient denies any gas or bowel movements at this time. Midline dressing noted to have bloody drainage. Abdominal binder in place. This time patient denies chest pain or shortness of breath. Patient denies nausea vomiting or diarrhea. Patient denies any urinary burning or frequency. Nicotine patch will be ordered On 07/19/2018 patient currently postop day 2. patient is currently sitting up in chair eating clear liquid diet. Per patient she is passing gas. Patient currently states her shortness of breath is improved with breathing treatments. [facility] started on Zithromax and Rocephin for antibiotics for possible pneumonia and UTI. Encouraged patient to continue walking and incentive spirometer use. On 07/20/2018 patient is currently postop day 2. Patient is currently sitting up in bed. Patient remains on clear liquid diet. Dr. Gomez has been consulted for pneumonia and urinary tract infection. patient remains on IV Rocephin and oral Zithromax. Patient does state some improvement with shortness of breath. This time patient denies chest pain or shortness breath patient denies nausea vomiting or diarrhea. Patient denies any urinary burning or frequency. On 07/21/2018 patient is currently postop day 3. Patient is currently sitting up in bed. Patient remains on clear liquid diet. Patient is still complaining of abdominal pain. Will order wound cultures at this time. Infectious disease is following. Patient is still having productive cough. Pulmonary services following. Denies chest pain or shortness breath. Patient denies nausea vomiting or diarrhea. Patient denies any urinary burning or frequency. Patient has not had bowel movement yet On 07/22/2018 patient is currently postop day 4. Patient is currently lying in bed. Patient has been advanced to a soft diet. Patient reports she had bowel movement last night. Patient is still complaining of significant abdominal pain. Wound cultures have been ordered. ID following. At this time patient states shortness of breath is improving. Patient denies chest pain. Patient denies any nausea or vomiting. Patient denies any urinary burning or frequency On 07/23/2018 patient is currently postop day 5. Patient is currently lying in bed. Patient has been tolerating diet. Patient did have a bowel movement yesterday. Patient is complaining of burning with urination. Patient is on Rocephin and Zithromax. Urine culture currently showing no growth. Infectious disease following. This time patient states shortness of breath is improving. Patient denies nausea vomiting or diarrhea. Patient denies chest pain. On 07/24/2018 patient is currently resting in bed. Discussed case with surgical service infectious planning to go back to the OR today with Dr. Washington for Dehiscence of abdominal wound. Patient remains on Zosyn for IV antibiotics. At this time patient states shortness of breath improved. Patient denies nausea vomiting or diarrhea. Patient denies urinary burning or frequency On 07/25/2018 patient is currently resting comfortably in bed. Patient is status post repair of wound dehiscece with Dr. Washington on 07/24/2018. Abdomen wound currently growing E. coli. Patient also having low-grade temps. Infectious disease is following. Antibiotics have been changed to meropenem and cultures have been ordered. At this time patient is complaining of some abdominal discomfort. Patient denies nausea vomiting or diarrhea. Patient denies any urinary burning or frequency. Denies chest pain or shortness of breath. On 07/26/2018 patient is currently resting in bed getting a breathing treatment. Patient is currently postop day 2 from post repair of wound dehiscence on 07/24/2018. Patient currently is PICC line in place remains on meropenem per infectious disease patient does state abdominal pain starting to subside. Patient denies chest pain or shortness breath. Patient denies nausea vomiting or diarrhea. Patient denies any urinary burning or frequency On 07/27/2018 patient is alert and oriented 3 in no apparent distress, she is sitting up in a chair, she is complaining of some abdominal discomfort, she stated that she had more than 10 bowel movements in the last 12 hours which is mostly liquid stool, otherwise she denies any complaints at this time. On 07/28/2018 patient is alert and oriented in no apparent distress she is complaining of cough with clear sputum production she is complaining of generalized abdominal pain otherwise no significant complaints there is no fever or chills no headache or dizziness no chest pain no shortness of breath no cough no nausea or vomiting and no urinary symptoms On 07/29/2018 patient is alert and oriented 3. Patient is still having cough with clear sputum production. Patient is still complaining of some generalized abdominal pain. Wound VAC currently in place. Patient denies chest pain or shortness breath. Denies any urinary burning or frequency. Patient remains on IV TPN at this time. On 07/30/2018 patient is alert and oriented 3. Patient states she feels somewhat improved. Patient does state she has been up walking more and using her incentive spirometer. Patient is planning to be DC'd in the next 24-48 hours with wound VAC. Per IDs note recommending IV Invanz. Patient does have PICC line in place. Patient denies chest pain or shortness of breath. Patient denies nausea vomiting or diarrhea. Patient denies any urinary burning or frequency On 07/31/2018 patient is alert and oriented 3. Patient states she feels much improved and ready to go home. Patient will go home with home health care and wound VAC. Patient will also be DC'd with IV antibiotic Invanz per infectious disease. Patient to follow-up with surgical services and infectious disease along with PCP. Will order CBC and CMP for next week. Patient highly encouraged continue incentive spirometer at home along with ambulation. At this time patient denies chest pain or shortness of breath. Patient denies nausea vomiting or diarrhea. Denies any urinary burning or frequency. Nicotine patch will also be prescribed upon discharge. Patient again educated on importance of smoking cessation. I performed an examination of the patient and discussed their management with the Nurse Practitioner. I have reviewed the Nurse Practitioner's notes and agree with the documented findings and plan of care Patient Condition at Discharge: Stable Plan - Discharge Summary Discharge Rx Participant: Yes New Discharge Prescriptions: New Ertapenem [INVanz] 1 gm IVPB Q24H #10 bag Famotidine [Pepcid] 20 mg PO BID 30 Days #60 tab Nicotine 14Mg/24Hr Patch [Habitrol] 1 patch TRANSDERM DAILY 30 Days #30 patch traMADol HCl [Ultram] 50 mg PO QID PRN 3 Days #12 tab PRN Reason: Breakthrough Pain Continue Levothyroxine Sodium [Synthroid] 112 mcg PO DAILY Aspirin 81 mg PO DAILY Ergocalciferol [Vitamin D2 (DRISDOL)] 50,000 unit PO Discharge Medication List Aspirin 81 mg PO DAILY 07/30/17 [History] Levothyroxine Sodium [Synthroid] 112 mcg PO DAILY 07/30/17 [History] Ergocalciferol [Vitamin D2 (DRISDOL)] 50,000 unit PO TU 07/11/18 [History] Ertapenem [INVanz] 1 gm IVPB Q24H #10 bag 07/31/18 [Rx] Famotidine [Pepcid] 20 mg PO BID 30 Days #60 tab 07/31/18 [Rx] Nicotine 14Mg/24Hr Patch [Habitrol] 1 patch TRANSDERM DAILY 30 Days #30 patch [Rx] traMADol HCl [Ultram] 50 mg PO QID PRN 3 Days #12 tab 07/31/18 [Rx] Follow up Appointment(s)/Referral(s): [facility], [NON-STAFF] - [facility], [REFERRING] - Guillaume Estes MD [Primary Care Provider] - 1 Week Landy Gomez MD [STAFF PHYSICIAN] - 1 Week Rustam Washington MD [STAFF PHYSICIAN] - 1 Week Activity/Diet/Wound Care/Special Instructions: Wound care to the abdominal wound with a wound VAC, black foam ,continuous pressure 125 mmHg, change Sunday Follow-up in the wound care center with Dr. Gomez next week , call [phone] to make an appointment Wound vac - [employer] - [phone] - delivered to bedside - please take home [facility] will deliver antibiotic supplies tomorrow morning [facility] will see patient tomorrow morning to apply wound vac and do antibiotic infusion Diet regular diet low fiber, gum Activity as tolerated Discharge Disposition: HOME WITH HOME HEALTH SERVICES
--- NOTE | 2018-07-31 17:00 | PN ---
PROGRESS NOTE DATE OF SERVICE: 07/31/2018. REASON FOR FOLLOWUP: Abdominal wound with secondary ESBL E coli infection. INTERVAL HISTORY: The patient is currently afebrile. She is breathing comfortably, feeling better. Denies having any chest pain. No shortness of breath or cough. No abdominal pain. No nausea, vomiting, or any diarrhea. PHYSICAL EXAMINATION: Blood pressure 130/73 with a pulse of 77, temperature 98.2. She is 96% on room air. General description is an elderly female lying in bed in no distress. Respiratory system: Unlabored breathing. Clear to auscultation anteriorly. Heart S1, S2. Regular rate and rhythm. ABDOMEN: Soft, no tenderness. LABS: Hemoglobin 11.1, white count 8.7, BUN of 10, creatinine 0.50. DIAGNOSTIC IMPRESSION AND PLAN: Patient with ESBL E coli abdominal wound infection with dehiscence, status post drainage. The patient antibiotic adjusted to Invanz 1 g daily for another 10 days. We will continue with the wound VAC and follow up the wound care center next week. Continue supportive care. MMODL / IJN: [id number] /
== END 2018-07-31 15:41 | disposition home health service (06) | DRG 329 ==
LOC: 2ORMAIN 07-17 10:26 → 4SSUR 07-17 16:25
PROVIDERS: ADMIT Surgery; ATTEND Surgery
PROC: 0DBN0ZZ Excision of Sigmoid Colon, Open Approach (ICD-10-PCS; 2018-07-17)
PROC: 0WQF0ZZ Repair Abdominal Wall, Open Approach (ICD-10-PCS; 2018-07-17)
PROC: 0DTP0ZZ Resection of Rectum, Open Approach (ICD-10-PCS; principal; 2018-07-17 12:25)
PROC: 0WQF0ZZ Repair Abdominal Wall, Open Approach (ICD-10-PCS; 2018-07-24)
PROC: 05HC33Z Insertion of Infusion Device into Left Basilic Vein, Percutaneous Approach (ICD-10-PCS; 2018-07-25)
DX: K57.20 Diverticulitis of large intestine with perforation and abscess without bleeding (principal); J18.9 Pneumonia, unspecified organism; J44.0 Chronic obstructive pulmonary disease with (acute) lower respiratory infection; J90 Pleural effusion, not elsewhere classified; J98.11 Atelectasis; N39.0 Urinary tract infection, site not specified; T81.30XA Disruption of wound, unspecified, initial encounter; Q43.8 Other specified congenital malformations of intestine; F17.210 Nicotine dependence, cigarettes, uncomplicated; Z71.6 Tobacco abuse counseling; B96.20 Unspecified Escherichia coli [E. coli] as the cause of diseases classified elsewhere; Z85.3 Personal history of malignant neoplasm of breast; E03.9 Hypothyroidism, unspecified; K43.2 Incisional hernia without obstruction or gangrene; K66.0 Peritoneal adhesions (postprocedural) (postinfection); M41.34 Thoracogenic scoliosis, thoracic region; Z16.12 Extended spectrum beta lactamase (ESBL) resistance; Z79.82 Long term (current) use of aspirin; Z79.890 Hormone replacement therapy; Z80.3 Family history of malignant neoplasm of breast; Z82.49 Family history of ischemic heart disease and other diseases of the circulatory system; Z90.11 Acquired absence of right breast and nipple; Z92.21 Personal history of antineoplastic chemotherapy; Z92.3 Personal history of irradiation; R19.7 Diarrhea, unspecified; Z88.5 Allergy status to narcotic agent; G89.29 Other chronic pain; M19.90 Unspecified osteoarthritis, unspecified site
CPT/HCPCS: 36569; 45378; 71045; 71046; 76937; 77001; 80048; 80053; 81001; 81003; 82330; 83735; 84100; 84478; 85025; 86850; 86900; 86901; 87040; 87070; 87075; 87077; 87086; 87186; 87205; 87324; 88307; 94640; 94760

== ENCOUNTER 2018-07-16 08:14 | Day surgery (SDC) | payer MEDICARE ==
[2018-07-11 14:07] VITALS: BMI 25.7
[~2018-07-16 08:14] MED LIST: DEXAMETHASONE SOD PHOSPHATE 10 MG/ML 1 ML VIAL IV ONE; HYDROmorphone 0.5 MG/0.5 ML SYRINGE IVP PRN; LACTATED RINGERS 1,000 ML IV SCH; LIDOCAINE 1% 20 ML VIAL (10MG/ML) FOR IV START INTRADERMA PRN; ONDANSETRON 4 MG/2 ML VIAL IVP ONE; SCOPOLAMINE 1.5MG/72HR PATCH TRANSDERM ONE
[2018-07-16 08:44] VITALS: TEMP 96.9
[2018-07-16] MEDS ORDERED: PROPOFOL 10 MG/ML 20 ML VIAL IV ONE (09:00)
[2018-07-16] MEDS ORDERED: LIDOCAINE 1% INJ 10MG/ML (20 ML MDV) ONE (09:00)
[2018-07-16 09:37] VITALS: RESP 18
--- NOTE | 2018-07-16 09:40 | P.GSHP ---
History of Present Illness H&P Date: 07/16/18 Chief Complaint: Diverticulitis This is a 73-year-old female who's had issues of diverticulitis. Patient presents today for colonoscopy. She has complaints of chronic left lower quadrant pain. Past Medical History Past Medical History: Cancer, Osteoarthritis (OA), Thyroid Disorder Additional Past Medical History / Comment(s): breast cancer, RADIATION AND CHEMO 2005, lymphedema RECENT DIVERTICULITIS, BACK PAIN History of Any Multi-Drug Resistant Organisms: None Reported Past Surgical History: Breast Surgery, Section, Cholecystectomy Additional Past Surgical History / Comment(s): RT mastectomy with lymphnode dissection. Past Anesthesia/Blood Transfusion Reactions: Previous Problems w/ Anesthesia Additional Past Anesthesia/Blood Transfusion Reaction / Comment(s): HALLUCINATIONS POST OP CHOLECYSTECTOMY Smoking Status: Current every day smoker - Past Family History Father Family Medical History: Congestive Heart Failure (CHF) Additional Family Medical History / Comment(s): from congestive heart failure Mother Family Medical History: Cancer, Congestive Heart Failure (CHF) Additional Family Medical History / Comment(s): from congestive heart failure, breast cancer Brother(s) Family Medical History: Cancer Additional Family Medical History / Comment(s): x2 Son(s) Family Medical History: Cancer Additional Family Medical History / Comment(s): testicular Medications and Allergies Home Medications Medication Instructions Recorded Confirmed Type Aspirin 81 mg PO DAILY 07/30/17 07/16/18 History Levothyroxine Sodium [Synthroid] 112 mcg PO DAILY 07/30/17 07/16/18 History Ergocalciferol [Vitamin D2] 50,000 unit PO Q7D 07/11/18 07/16/18 History Allergies Allergy/AdvReac Type Severity Reaction Status Date / Time morphine Allergy Hallucinati Verified 07/16/18 08:54 ons Surgical - Exam Vital Signs Temp Pulse Resp Pulse Ox 96.9 F L 76 16 99 07/16/18 08:42 07/16/18 08:42 07/16/18 08:42 07/16/18 08:42 - General well developed, no distress - Eyes PERRL - ENT normal pinna - Neck no masses - Respiratory normal expansion - Cardiovascular Rhythm: regular - Abdomen Abdomen: soft, tender (Left lower quadrant) Assessment and Plan Assessment: History of diverticulitis. We'll perform colonoscopy.
[2018-07-16 09:42] VITALS: BP 134/59; PULSE 65
--- NOTE | 2018-07-16 09:42 | P.OP ---
Date of Procedure: 07/16/18 Preoperative Diagnosis: Diverticulitis Postoperative Diagnosis: Severe diverticulosis Procedure(s) Performed: Colonoscopy Anesthesia: MAC Surgeon: Rustam Washington Pathology: none sent Condition: stable Disposition: PACU Description of Procedure: Patient's placed on the endoscopy table in the lateral position. He received IV sedation. The digital rectal exam was performed which revealed no abnormalities. Possible colonoscope was then placed patient anus. The scope could not be passed beyond the sigmoid colon secondary to tortuous of bowel and severe diverticulosis. Scope was withdrawn. There is evidence of significant diverticular changes. Scope was then brought back the rectum and this appeared normal. Scope was withdrawn from patient.
== END 2018-07-16 10:20 | disposition home or self-care (01) ==
LOC: ORWHC2ENDO 08:14
PROVIDERS: ATTEND Surgery
DX: K57.30 Diverticulosis of large intestine without perforation or abscess without bleeding (principal); Q43.8 Other specified congenital malformations of intestine; M19.90 Unspecified osteoarthritis, unspecified site; E07.9 Disorder of thyroid, unspecified; Z85.3 Personal history of malignant neoplasm of breast; Z92.21 Personal history of antineoplastic chemotherapy; Z92.3 Personal history of irradiation; F17.200 Nicotine dependence, unspecified, uncomplicated; Z90.11 Acquired absence of right breast and nipple; Z79.82 Long term (current) use of aspirin; Z79.890 Hormone replacement therapy; Z88.5 Allergy status to narcotic agent
CPT/HCPCS: 45378; J2001; J2704

== ENCOUNTER → 2019-07-14 | Outpatient (CLI) | payer MEDICARE ==
--- NOTE | 2019-07-14 11:49 | XR ---
EXAMINATION TYPE: XR chest 2V DATE OF EXAM: 07/14/2019 COMPARISON: 07/30/2018, 08/10/2011 TECHNIQUE: PA and lateral views submitted. HISTORY: Shortness of breath FINDINGS: The lungs are clear and there is no pneumothorax, pleural effusion, or focal pneumonia. Scoliosis. Postoperative change involving the right axilla. Chronic rib deformities noted. Atherosclerotic perez e aorta. No overt failure. There is a right apical pleural-based thickening which is somewhat nodular but also seen on the prior exam and stable since 2010. IMPRESSION: 1. No acute process.
== END | disposition home or self-care (01) ==
LOC: RADXRMAIN 10:18
PROVIDERS: ATTEND Internal Medicine
DX: R05 Cough (principal)
CPT/HCPCS: 71046

== ENCOUNTER → 2020-04-22 | Outpatient (CLI) | payer MEDICARE ==
--- NOTE | 2020-04-22 15:55 | BD ---
EXAMINATION TYPE: Axial Bone Density DATE OF EXAM: 04/22/2020 COMPARISON: 04/04/2016 CLINICAL HISTORY: Height: 62 IN Weight: 163 LBS FRAX RISK QUESTIONS: Rheumatoid Arthritis: YES RISK FACTORS HISTORY OF: Active: MODERATE Postmenopausal woman: AGE 50 Lost more than 2 inches in height since high school: YES 5" MEDICATIONS: Thyroid Medications: YES Which medication: Levothyroxine How Lon+ YEARS Additional Medications: VIT D, LEVOTHYROXINE, CHOLESTEROL MEDS, Additional History: BREAST CANCER WITH CHEMO AND RADIATION EXAM MEASUREMENTS: Bone mineral densitometry was performed using the [employer] System. Bone mineral density as measured about the Lumbar spine is: ----- L1-L4(G/cm2): 0.913 T Score Values are as follows: ----- L2: -2.5 ----- L3: -2.5 ----- L4: -2.0 ----- L1-L4: -2.2 Bone mineral density has: Increased 8.9% since study of: 04/04/2016 Bone mineral density about the R hip (g/cm2): 0.875 Bone mineral density about the L hip (g/cm2): 0.817 T Score values are as follows: -----R Neck: -1.2 -----L Neck: -1.6 -----R Total: -1.3 -----L Total: -1.2 Bone mineral density has: Decreased -4.4% since study of: 04/04/2016 IMPRESSION: Osteopenia NOTE: T-SCORE=SD OF THE YOUNG ADULT MEAN.
--- NOTE | 2020-04-23 10:13 | MM ---
Reason for exam: additional evaluation requested from prior study. Last mammogram was performed 4 years and 1 month ago. History: Patient is postmenopausal and has history of breast cancer at age 60. Family history of breast cancer in mother at age 72. Malignant excisional biopsy of the right breast, December 29, 2005. Mastectomy of the right breast, December 29, 2005. Core biopsy of the right breast, December 18, 2005. Physical Findings: Nurse did not find any significant physical abnormalities on exam. MG 3D Diag Mammo W/Cad LT CC and MLO view(s) were taken of the left breast. Prior study comparison: April 04, 2016, left breast MG 3d diag mammo w/cad LT. October 22, 2007, left breast digital mammogram. The breast tissue is heterogeneously dense. This may lower the sensitivity of mammography. Stable benign calcifications. There is no discrete abnormality. No significant new findings when compared with previous films. These results were verbally communicated with the patient and result sheet given to the patient on 04/22/20. ASSESSMENT: Benign, BI-RAD 2 RECOMMENDATION: Follow-up diagnostic mammogram of the left breast in 1 year.
== END | disposition home or self-care (01) ==
LOC: RADMAMWWP 14:00
PROVIDERS: ATTEND Internal Medicine
DX: Z08 Encounter for follow-up examination after completed treatment for malignant neoplasm (principal); Z85.3 Personal history of malignant neoplasm of breast; M85.80 Other specified disorders of bone density and structure, unspecified site
CPT/HCPCS: 77080; 77065; G0279; 77061

== ENCOUNTER → 2023-06-15 | Outpatient (CLI) | payer OTHER, MEDICARE ==
--- NOTE | 2023-06-18 08:58 | MM ---
Reason for Exam: Hx of breast cancer, mastectomy. Last mammogram was performed 1 year(s) and 1 month(s) ago. Patient History: Menarche at age 13. First Full-Term at age 19. Postmenopausal. Breast cancer, right, age 60. 12/18/2005, Core Biopsy on the Right side. 12/29/2005, Malignant Excisional Biopsy on the right side. Mother had breast cancer, age 72. Prior Study Comparison: 10/22/2007 Left Diagnostic Mammogram, [facility]. 04/04/2016 Left Diagnostic Mammogram, [facility]. 04/22/2020 Left Diagnostic Mammogram, [facility]. 05/24/2022 Left MG 3D diag mammo w/cad , [facility]. Tissue Density: Left: There are scattered fibroglandular densities. Findings: Analyzed By CAD. There is no suspicious group of microcalcifications or new suspicious mass. Benign-appearing calcifications left breast. Overall Assessment: Negative, BI-RAD 1 Management: Screening Mammogram of both breasts in [address] [facility] will attempt to contact patient to return for supplemental views and ultrasound if indicated. Patient should continue monthly self-breast exams. A clinical breast exam by your physician is recommended on an annual basis. This exam should not preclude additional follow-up of suspicious palpable abnormalities. Note on Kathy scores and lifetime risk: 1. A Kathy score greater than 3% is considered moderate risk. If this is the case, consider specialist referral to assess eligibility for a risk reducing agent. 2. If overall lifetime risk for the development of breast cancer is 20% or higher, the patient may qualify for future screening with alternating mammogram and breast MRI. Electronically signed and approved by: Ac Ko DO
== END | disposition home or self-care (01) ==
LOC: RADMAMWWP 12:54
PROVIDERS: ATTEND Internal Medicine
DX: Z12.31 Encounter for screening mammogram for malignant neoplasm of breast (principal); Z78.0 Asymptomatic menopausal state; Z80.3 Family history of malignant neoplasm of breast; Z85.3 Personal history of malignant neoplasm of breast
CPT/HCPCS: 77067

== ENCOUNTER → 2024-06-19 | Outpatient (CLI) | payer MEDICARE ==
--- NOTE | 2024-06-21 18:07 | BD ---
EXAMINATION TYPE: Axial Bone Density DATE OF EXAM: 06/19/2024 CLINICAL HISTORY: 79 years old Female. ICD-10 CODE: N95.1 MENOPAUSAL AND FEMAL M85.88 , Additional H istory: Height: 61 Weight: 155 FRAX RISK QUESTIONS: Secondary Osteoporosis: RISK FACTORS HISTORY OF: MEDICATIONS: Thyroid Medications: Which medication: Levothyroxine How Long: about 50 years EXAM MEASUREMENTS: Bone mineral densitometry was performed using the [employer] System. Bone mineral density as measured about the Lumbar spine is: ----- L1-L4(G/cm2): 0.846 T Score Values are as follows: ----- L1: -2.8 ----- L2: -3.0 ----- L3: -3.1 ----- L4: -2.2 ----- L1-L4: -2.8 Z Score Values are as follows: ----- L1: -1.2 ----- L2: -1.4 ----- L3: -1.4 ----- L4: -0.5 ----- L1-L4: -1.1 Bone mineral density has: Decreased -7.3% since study of: 04-22-20 Bone mineral density about the R hip (g/cm2): 0.832 Bone mineral density about the L hip (g/cm2): 0.833 T Score values are as follows: -----R Neck: -1.7 -----L Neck: -1.7 -----R Total: -1.4 -----L Total: -1.4 Z Score values are as follows: -----R Neck: 0.3 -----L Neck: 0.4 -----R Total: 0.4 -----L Total: 0.4 Bone mineral density has: Decreased -1.8% since study of: 04-22-20 FRAX%s: The graph provided illustrates a 19.8% chance for a major osteoporotic fx and a 4.5% chance f or the hips probability for fx in 10 years time. IMPRESSION: Osteoporosis (T Score less than -2.5). There is increased fracture risk and therapy is usually indicated based on age. Re-Screen 1-2 years. NOTE: T-SCORE=SD OF THE YOUNG ADULT MEAN. [facility], , 06/21/2024 6:04 PM
--- NOTE | 2024-06-26 14:23 | MM ---
Reason for Exam: Screening (asymptomatic). Last screening mammogram was performed 12 month(s) ago. Patient History: Menarche at age 13. First Full-Term at age 19. Postmenopausal. Breast cancer, right, age 60. 12/29/2005, Mastectomy on the Right side. 12/18/2005, Core Biopsy on the Right side. 12/29/2005, Malignant Excisional Biopsy on the right side. Mother had breast cancer, age 72. Prior Study Comparison: 04/22/2020 Left Diagnostic Mammogram, [facility]. 05/24/2022 Left MG 3D diag mammo w/cad LT, [facility]. 06/15/2023 Left MG screen nevin unilateral w/cad, [facility]. Tissue Density: Left: There are scattered areas of fibroglandular density. Findings: Analyzed By CAD. Left breast: There is no suspicious group of microcalcifications or new suspicious mass. Overall Assessment: Negative, BI-RAD 1 Management: Screening Mammogram of both breasts in [address] [facility] will attempt to contact patient to return for supplemental views and ultrasound if indicated. Patient should continue monthly self-breast exams. A clinical breast exam by your physician is recommended on an annual basis. This exam should not preclude additional follow-up of suspicious palpable abnormalities. Note on Kathy scores and lifetime risk: 1. A Kathy score greater than 3% is considered moderate risk. If this is the case, consider specialist referral to assess eligibility for a risk reducing agent. 2. If overall lifetime risk for the development of breast cancer is 20% or higher, the patient may qualify for future screening with alternating mammogram and breast MRI. [facility], , 06/26/2024 2:20 PM. Electronically signed and approved by: Ac Ko DO
== END | disposition home or self-care (01) ==
LOC: RADBDWWP 14:26
PROVIDERS: ATTEND Internal Medicine
DX: Z12.31 Encounter for screening mammogram for malignant neoplasm of breast (principal); M85.88 Other specified disorders of bone density and structure, other site; Z78.0 Asymptomatic menopausal state; Z80.3 Family history of malignant neoplasm of breast; Z85.3 Personal history of malignant neoplasm of breast; Z90.11 Acquired absence of right breast and nipple; R92.322 Mammographic fibroglandular density, left breast; M81.8 Other osteoporosis without current pathological fracture
CPT/HCPCS: 77067; 77080